=== PATIENT | female | born 1970 | race Caucasian/White ===

== ENCOUNTER 2019-04-08 12:05 | Inpatient (IN) ==
--- NOTE | 2019-04-08 12:59 | Emergency Department Note ---
[facility] [place] Disposition Clinical Impression: Colitis Disposition: Admitted as Observation Condition on Discharge: Good Medical Decision Making - Medical Records Medical records reviewed: Yes: I reviewed the patient's medical records. - Lito Inquiry Pt receiving controlled substance: No Lito was queried for this patient: No Vital Signs: 04/08/19 12:26 04/08/19 13:00 04/08/19 13:36 Temperature 98.5 F 98.5 F Temperature Source Oral Oral Pulse Rate Pulse Rate [Right Brachial] 96 H 96 H 94 H Respiratory Rate 20 20 18 Blood Pressure Blood Pressure [Right Arm] 120/73 120/73 120/73 Blood Pressure Mean [Right Arm] 88 88 88 Blood Pressure Source [Right Arm] Automatic Cuff Automatic Cuff Automatic Cuff Blood Pressure Position [Right Arm] Sitting Sitting Supine 02 Sat by Pulse Oximetry 98 98 100 Oxygen Delivery Method Room Air Room Air Room Air 04/08/19 14:00 04/08/19 14:30 04/08/19 15:00 Temperature Temperature Source Pulse Rate Pulse Rate [Right Brachial] 94 H 94 H 94 H Respiratory Rate 20 20 18 Blood Pressure Blood Pressure [Right Arm] 120/73 121/72 120/73 Blood Pressure Mean [Right Arm] 88 88 88 Blood Pressure Source [Right Arm] Automatic Cuff Automatic Cuff Automatic Cuff Blood Pressure Position [Right Arm] Supine Supine Supine 02 Sat by Pulse Oximetry 98 98 98 Oxygen Delivery Method Room Air Room Air Room Air 04/08/19 16:00 04/08/19 17:11 04/08/19 18:30 Temperature 98.6 F Temperature Source Oral Pulse Rate Pulse Rate [Right Brachial] 94 H 94 H 98 H Respiratory Rate 18 20 15 Blood Pressure Blood Pressure [Right Arm] 120/73 120/73 114/85 Blood Pressure Mean [Right Arm] 88 88 94 Blood Pressure Source [Right Arm] Automatic Cuff Automatic Cuff Blood Pressure Position [Right Arm] Supine Supine 02 Sat by Pulse Oximetry 98 98 98 Oxygen Delivery Method Room Air Room Air Room Air 04/08/19 18:32 Temperature 98.4 F Temperature Source Oral Pulse Rate 98 H Pulse Rate [Right Brachial] Respiratory Rate 15 Blood Pressure 114/65 Blood Pressure [Right Arm] Blood Pressure Mean [Right Arm] Blood Pressure Source [Right Arm] Blood Pressure Position [Right Arm] 02 Sat by Pulse Oximetry Oxygen Delivery Method Room Air - Lab Data Lab results reviewed: Yes: I reviewed the patient's lab results. Lab Results 04/08/19 13:15: WBC 18.1 H, RBC 4.39, Hgb 13.6, Hct 42.5, MCV 96.7, MCH 30.9, MCHC 31.9, RDW 13.6, Plt Count 363, MPV 8.0, Neut % (Auto) 79.9, Lymph % (Auto) 11.9, [place] % (Auto) 6.5, Eos % (Auto) 1.4, Baso % (Auto) 0.2, Neut # (Auto) 14.4 H, Lymph # (Auto) 2.1, [place] # (Auto) 1.2 H, Eos # (Auto) 0.3, Baso # (Auto) 0.0, Total Counted 100, Neutrophils % (Manual) 80 H, Band Neutrophils % 1.0, Lymphocytes % (Manual) 12, Monocytes % (Manual) 4, Eosinophils % (Manual) 3, Platelet Estimate Normal, RBC Morphology Normal 04/08/19 13:15: Sodium 136, Potassium 3.5, Chloride 99, Carbon Dioxide 27, Anion Gap 13.5, BUN 15, Creatinine 0.84, Estimated Creat Clear 102, Estimated GFR 73, Est GFR ( Amer) 88, Glucose 100, Calcium 8.7, Total Bilirubin 0.9, AST 18, ALT 31, Alkaline Phosphatase 57, Total Protein 7.2, Albumin 3.8, Globulin 3.4 H, Albumin/Globulin Ratio 1.1, Amylase 56, Lipase 193 04/08/19 13:15: ESR 16 04/08/19 13:15: C-Reactive Protein 0.3 04/08/19 13:35: Urine Color Yellow, Urine Appearance Clear, Urine pH 6.0, Ur Specific [place] 1.020, Urine Protein Negative, Urine Glucose (UA) Negative, Urine Ketones Negative, Urine Blood Trace-l, Urine Nitrate Negative, Urine Bilirubin Negative, Urine Urobilinogen 0.2, Ur Leukocyte Esterase Negative, Urine RBC 5-10, Urine WBC 3-5, Ur Squamous Epith Cells 10-20, Urine Bacteria Trace 04/08/19 15:20: Stool Occult Blood Positive A 04/08/19 15:20: Stl Aeromonas (PCR) Not detected, Stl C. cayetanensis PCR Not detected, Stool Rotavirus (PCR) Not detected, Stl Adenov F 40/41 PCR Not detected, Stool Astrovirus (PCR) Not detected, Stool Campylobacter PCR Not detected, Stl C.difficile Tox PCR Not detected, Stool Cryptosporidium PCR Not detected, Stl E.coli Shiga Tox PCR Not detected, Stool E coli O157 PCR Not detected, Stl Enterotoxigenic E PCR Not detected, Stool EPEC (PCR) Not detected, Stool EAEC (PCR) Not detected, Stl E. histolytica PCR Not detected, Stool Giardia Lamblia PCR Not detected, Stool Salmonella PCR Not detected, Stool Sapovirus (PCR) Not detected, Stl P. shigelloides PCR Not detected, Stl Shigell a/EIEC PCR Not detected, St Y.enterocolitica PCR Not detected, Stool Vibrio (PCR) Not detected, Stl Vibrio cholerae PCR Not detected, Stl Norovirus GI/GII PCR Not detected Result diagrams: 04/08/19 13:15 04/08/19 13:15 Orders (Tests/Meds): ED MEDICATIONS Generic Name Dose Route Start Last Admin Trade Name Freq PRN Reason Stop Dose Admin Acetaminophen 650 mg 04/08/19 17:46 Acetaminophen 325mg Tab PO 05/08/19 17:45 Q4HP PRN As Needed for Fever or Pain Folic Acid 1 mg 04/09/19 09:00 Folic Acid 1mg Tablet PO 05/09/19 08:59 DAILY [facility] Metronidazole 500 mg in 100 mls @ 100 mls/hr 04/09/19 01:00 Flagyl 500mg/100ml Ivpb IV 04/22/19 16:59 Q8H GOLDY Protocol Sodium Chloride 1,000 mls @ 100 mls/hr 04/08/19 17:46 04/08/19 19:40 Sod Chlor 0.9% 1000ml Bag IV 05/08/19 17:45 100 mls/hr .Q10H GOLDY Administration Levothyroxine Sodium 50 mcg 04/09/19 09:00 Synthroid 50mcg (0.05mg) Tablet PO 05/09/19 08:59 DAILY GOLDY Lisinopril 10 mg 04/09/19 09:00 Zestril 10mg Tablet PO 05/09/19 08:59 DAILY GOLDY Methotrexate mg 04/08/19 17:46 Methotrexate 2.5mg Tablet PO 05/08/19 17:45 WEEKLY GOLDY Morphine Sulfate 4 mg 04/08/19 17:46 Morphine 2mg/Ml Syringe IV 05/08/19 17:45 Q4HP PRN Severe Pain Non-Formulary Medication 20 mg 04/08/19 21:00 Dextroamphetamine/Amphetamine [Adderall 20 Mg Tablet] PO 05/08/19 20:59 BID GOLDY Non-Formulary Medication 150 mg 04/09/19 09:00 Venlafaxine Hcl [Effexor Xr] PO 05/09/19 08:59 DAILY [facility] Ondansetron HCl 4 mg 04/08/19 17:46 Zofran 4mg/2ml Vial IV 05/08/19 17:45 Q8HP PRN Nausea Discontinued Medications Generic Name Dose Route Start Last Admin Trade Name Freq PRN Reason Stop Dose Admin Diatrizoate Meglum/Diatrizoate Sod 30 ml 04/08/19 13:46 04/08/19 13:46 Gastrografin 66%-10% 30ml PO 04/08/19 13:47 30 ml ONCE ONE Administration Metronidazole 500 mg in 100 mls @ 100 mls/hr 04/08/19 17:00 04/08/19 17:42 Flagyl 500mg/100ml Ivpb IV 04/22/19 16:59 100 mls/hr Q8H GOLDY Administration Protocol Ioversol 75 ml 04/08/19 15:41 04/08/19 15:42 Rad-Optiray 350 100ml Vial IV 04/08/19 15:42 75 ml ONCE ONE Administration Protocol Sodium Chloride 10 ml 04/08/19 15:41 04/08/19 15:42 Rad-Saline Flush 10ml Syringe IV 04/08/19 15:42 10 ml ONCE ONE Administration ORDERS Category Date Time Status Complete Blood Count Auto Diff AMLAB Lab 04/09/19 06:00 Ordered [facility] [place] HPI - General Stated complaint: v/d, rectal bleeding, dehydrated Time Seen by Provider: 04/08/19 13:00 Mode of Arrival: Family Vehicle Source of Information: Patient Limitations: No Limitations Description of Symptoms (Recalled from Triage Doc. by RN): C/O" VIOLENT" VOMITING AND DIARRHEA WITH ABDOMINAL PAIN,WEAKNESS,DEHYDRATION AND BRIGHT RED BLODD FORM BOWELS. BLOOD ONLY BUT NO STOOLS. HX RECTAL BLEEDING PREVIOUSLY AND HAD TO BE ADMITTED FOR 5 DAYS HEENT Symptoms (Recalled from RN notes): No Resp Symptoms (Recalled from RN notes): No Skin Symptoms (Recalled from RN notes): No MS Symptoms (Recalled from RN notes): No Functional Status (Recalled from RN notes): N/A - History of Present Illness Provider Complaint: She complains of bright red rectal bleeding since yesterday evening. She has also vomited several times, but there has not been any blood in her vomitus. She describes the amount of blood as "kind of alot". She states that today she has had multiple bouts of rectal bleeding with out having a bowel movement. She had similar symptoms about 5 years ago. She states she was checked out by GI and a reason for the bleeding was never really identified. But the bleeding stopped and she has had no more symptoms until now. - Related Data Home Medications Medication Instructions Recorded Confirmed Dextroamphetamine/Amphetamine 40 mg PO DAILY 04/08/19 04/08/19 [Adderall 20 mg Tablet] Folic Acid [Folic Acid 1mg tablet] 1 tab PO DAILY 04/08/19 04/08/19 Leucovorin Calcium 5 mg PO DIRECTED 04/08/19 04/08/19 Levothyroxine Sodium 50 mcg PO DAILY 04/08/19 04/08/19 [Levothyroxine 50mcg (0.05mg) Tab] Lisinopril [Lisinopril 10mg Tab] 10 mg PO DAILY 04/08/19 04/08/19 Metoprolol Succinate 50 mg PO DAILY 04/08/19 04/08/19 Venlafaxine HCl [Effexor Xr] 150 mg PO DAILY 04/08/19 04/08/19 metHOTREXate sodium [metHOTREXate 8 tab PO WEEKLY 04/08/19 04/08/19 2.5mg Tablet] Allergies Allergy/AdvReac Type Severity Reaction Status Date / Time cephalexin [From KEFLEX] Allergy Mild Verified 04/08/19 12:34 levofloxacin [LEVOFLOXACIN] Allergy Unknown I-RASH Verified 04/08/19 12:34 clindamycin Allergy Verified 04/08/19 12:34 - Worker's Comp Is this a Worker's Comp case?: No [facility] History - Hepatitis A Screen Drug use history?: No High risk sexual behaviors?: No History of sexually transmitted infection?: No Currently employed?: No Childcare worker?: No Do you have indoor plumbing?: Yes Do you have electricity?: Yes Attestation statement:: This patient has been screened for Hepatitis A risk factors. I have reviewed the patient's past medical history: Yes Fractures: Yes (KNEE) - Social History Smoking Status: Current every day smoker Tobacco Type: cigarettes # Packs/Day (cigarettes): 1 Alcohol Intake: never Occupational Status: other ROS Obtained: Yes All systems reviewed & no additional complaints - Constitutional Constitutional: Denies chills, Denies fever(s) - ENT Ears, Nose, Mouth, and Throat: Reports dizziness, Denies otalgia, Denies sore throat - Gastrointestinal Gastrointestingal: Reports: as per HPI Physical Exam - General General appearance: alert, in no apparent distress - Head Head exam: atraumatic, normocephalic, normal inspection - Eye Eye exam: Present: normal appearance, PERRL, EOMI - ENT ENT exam: Present: normal exam, normal oropharynx, mucous membranes moist, TM's normal bilaterally, normal external ear exam - Neck Neck exam: Present: normal inspection, full ROM, trachea midline. Absent: meningismus, lymphadenopathy - Chest Chest inspection: Present: normal inspection, symmetric chest wall rise. Absent: tenderness - Respiratory Respiratory exam: Present: normal lung sounds bilaterally. Absent: respiratory distress - Cardiovascular Cardiovascular exam: Present: regular rate, normal rhythm. Absent: JVD - Abdominal Exam Abdominal exam: Present: soft, normal bowel sounds. Absent: distention, tenderness, guarding - Extremities Exam Extremities exam: Present: normal inspection, full ROM, normal capillary refill. Absent: calf tenderness - Back Exam Back exam: Present: normal inspection. Absent: tenderness - Neurological Exam Neurological exam: Present: alert, oriented X3 - Psychiatric Psychiatric exam: Present: normal affect, normal mood - Skin Skin exam: Present: warm, dry, intact, normal color - Lymphatic Lymphatic Findings: no adenopathy
[2019-04-08 13:30] LABS: Basophils % 0.2 % (0.1-2.0); Eosinophils # 0.3 K/mm3 (0.0-0.4); Eosinophils % 1.4 % (0.1-12.0); Hematocrit 42.5 % (37.0-47.0); Hemoglobin 13.6 g/dL (12.2-16.2); Lymphocytes # 2.1 K/mm3 (0.7-4.5); Lymphocytes % 11.9 % (10-50); Mean Corpuscular HGB Conc 31.9 g/dL (31.8-35.4); Mean Corpuscular Volume 96.7 fl (81-99); Monocytes # 1.2 K/mm3 (0.1-1.0); Monocytes % 6.5 % (1.7-9.3); Neutrophils # 14.4 K/mm3 (1.8-7.8); Neutrophils % 79.9 % (37.0-80.0); Platelet Count 363 K/mm3 (142-424); Red Blood Count 4.39 M/mm3 (4.20-5.40); Red Cell Distribution Width 13.6 % (11.5-17.5); White Blood Count 18.1 K/mm3 (4.8-10.8)
[2019-04-08 13:42] LABS: Albumin Level 3.8 gm/dL (3.4-5.0); Albumin/Globulin Ratio 1.1 (1.1-1.8); Anion Gap 13.5 mEq/L (5-15); Bilirubin,Total 0.9 mg/dL (0.2-1.0); Calcium 8.7 mg/dL (8.5-10.1); Globulin 3.4 gm/dl (1.3-3.2); Total Protein,Serum 7.2 gm/dL (6.4-8.2)
[2019-04-08 13:42] LABS: Microscopic, Urine URINE MICROSCOPIC (MICROSCOPIC)
[2019-04-08 13:44] LABS: Appearance,Urine CLEAR (Clear); Bilirubin,Urine Negative (Negative); Blood, Urine TRACE-L (Negative); Color,Urine YELLOW (Yellow); Glucose,Urine (UA) Negative (Negative); Ketones,Urine Negative (Negative); Leukocyte Esterase,Urine Negative (Negative); Protein,Urine Negative (Negative); Urobilinogen,Urine 0.2 EU/dl (0.2)
--- NOTE | 2019-04-08 13:51 | Emergency Department Note ---
ED Disposition Clinical Impression: Colitis Disposition: Admitted as Observation Condition on Discharge: Fair Referrals: Sydnie Godwin MD [Primary Care Provider] - - Critical Care Critical Care Time: No Attestation: On 04/08/19, the high probability of a clinically significant, sudden or life threatening deterioration of the following system(s) required my full and direct attention, intervention and personal management. The time I documented below is in addition to time spent performing reported procedures but includes the following listed in this critical care notation. Medical Decision Making - Lito Inquiry Pt receiving controlled substance: No Vital Signs: 04/08/19 12:26 04/08/19 13:00 04/08/19 13:36 Temperature 98.5 F 98.5 F Temperature Source Oral Oral Pulse Rate [Right Brachial] 96 H 96 H 94 H Respiratory Rate 20 20 18 Blood Pressure [Right Arm] 120/73 120/73 120/73 Blood Pressure Mean [Right Arm] 88 88 88 Blood Pressure Source [Right Arm] Automatic Cuff Automatic Cuff Automatic Cuff Blood Pressure Position [Right Arm] Sitting Sitting Supine 02 Sat by Pulse Oximetry 98 98 100 Oxygen Delivery Method Room Air Room Air Room Air 04/08/19 14:00 04/08/19 14:30 04/08/19 15:00 Temperature Temperature Source Pulse Rate [Right Brachial] 94 H 94 H 94 H Respiratory Rate 20 20 18 Blood Pressure [Right Arm] 120/73 121/72 120/73 Blood Pressure Mean [Right Arm] 88 88 88 Blood Pressure Source [Right Arm] Automatic Cuff Automatic Cuff Automatic Cuff Blood Pressure Position [Right Arm] Supine Supine Supine 02 Sat by Pulse Oximetry 98 98 98 Oxygen Delivery Method Room Air Room Air Room Air 04/08/19 16:00 Temperature Temperature Source Pulse Rate [Right Brachial] 94 H Respiratory Rate 18 Blood Pressure [Right Arm] 120/73 Blood Pressure Mean [Right Arm] 88 Blood Pressure Source [Right Arm] Automatic Cuff Blood Pressure Position [Right Arm] Supine 02 Sat by Pulse Oximetry 98 Oxygen Delivery Method Room Air - Lab Data Lab Results 04/08/19 13:15: WBC 18.1 H, RBC 4.39, Hgb 13.6, Hct 42.5, MCV 96.7, MCH 30.9, MCHC 31.9, RDW 13.6, Plt Count 363, MPV 8.0, Neut % (Auto) 79.9, Lymph % (Auto) 11.9, Toombs % (Auto) 6.5, Eos % (Auto) 1.4, Baso % (Auto) 0.2, Neut # (Auto) 14.4 H, Lymph # (Auto) 2.1, Toombs # (Auto) 1.2 H, Eos # (Auto) 0.3, Baso # (Auto) 0.0, Total Counted 100, Neutrophils % (Manual) 80 H, Band Neutrophils % 1.0, Lymphocytes % (Manual) 12, Monocytes % (Manual) 4, Eosinophils % (Manual) 3, Platelet Estimate Normal, RBC Morphology Normal 04/08/19 13:15: Sodium 136, Potassium 3.5, Chloride 99, Carbon Dioxide 27, Anion Gap 13.5, BUN 15, Creatinine 0.84, Estimated Creat Clear 102, Estimated GFR 73, Est GFR ( Amer) 88, Glucose 100, Calcium 8.7, Total Bilirubin 0.9, AST 18, ALT 31, Alkaline Phosphatase 57, Total Protein 7.2, Albumin 3.8, Globulin 3.4 H, Albumin/Globulin Ratio 1.1, Amylase 56, Lipase 193 04/08/19 13:35: Urine Color Yellow, Urine Appearance Clear, Urine pH 6.0, Ur Specific Colon 1.020, Urine Protein Negative, Urine Glucose (UA) Negative, Urine Ketones Negative, Urine Blood Trace-l, Urine Nitrate Negative, Urine Bilirubin Negative, Urine Urobilinogen 0.2, Ur Leukocyte Esterase Negative, Urine RBC 5-10, Urine WBC 3-5, Ur Squamous Epith Cells 10-20, Urine Bacteria Trace 04/08/19 15:20: Stool Occult Blood Positive A Result diagrams: 04/08/19 13:15 04/08/19 13:15 Orders (Tests/Meds): ED MEDICATIONS Discontinued Medications Generic Name Dose Route Start Last Admin Trade Name Freq PRN Reason Stop Dose Admin Diatrizoate Meglum/Diatrizoate Sod 30 ml 04/08/19 13:46 04/08/19 13:46 Gastrografin 66%-10% 30ml PO 04/08/19 13:47 30 ml ONCE ONE Administration Ioversol 75 ml 04/08/19 15:41 04/08/19 15:42 Rad-Optiray 350 100ml Vial IV 04/08/19 15:42 75 ml ONCE ONE Administration Protocol Sodium Chloride 10 ml 04/08/19 15:41 04/08/19 15:42 Rad-Saline Flush 10ml Syringe IV 04/08/19 15:42 10 ml ONCE ONE Administration ORDERS Category Date Time Status C-Reactive Protein Stat Lab 04/08/19 16:23 Ordered Diarrhea 6-11 Panel, Cdiff PCR Stat Lab 04/08/19 15:20 Received ESR [Erythrocyte Sedimentation Rate] Stat Lab 04/08/19 16:23 Ordered - CT Data CT Scan: Abdomen, Pelvis Time Received: 16:[address] Reviewed: Yes: I have viewed the radiologist's interpretation Findings Narrative: FINDINGS: The lung bases are clear. The liver, gallbladder, spleen, adrenal glands, pancreas, and kidneys have an unremarkable appearance. There is a small umbilical hernia containing fat. Unremarkable appendix. No evidence of small-bowel obstruction. There are air-fluid levels within the ascending and transverse colon. There is moderate thickening of the splenic flexure, descending colon, and sigmoid colon with mild stranding of the pericolic fat consistent with colitis. The the cecum shows a moderate amount of fluid with some inter mixing of contrast. There is a small amount of fluid in the pelvis. No acute bony anomalies are evident. Prior hysterectomy IMPRESSION: 1. There is colitis of the splenic flexure, descending colon, and sigmoid colon with stranding of the pericolic fat. This thickening is worse in the descending colon region. No obvious pneumatosis. This could be inflammatory or infectious. Ischemia is also consideration with this area of distribution. Superior mesenteric artery proximally has an unremarkable appearance. 2. Small amount of free fluid in the pelvis Dictated by: Jared Stevens MD 04/08/2019 15:59 Electronically signed by Jared Stevens MD in [place] 04/08/2019 15:59 - Physician Consults Physician Consulted: Mendy Godwin Time: 16:52 Reason -: Admission Comment/Response: Agrees to admit the patient to the hospital. We discussed the patient's clinical information, including history, exam, laboratory and radiology results and ED course. Per hospital procedure, I will write temporary bridge inpatient orders on the patient. Specific orders requested by the admitting physician: Flagyl Medical Decision Narrative: Prior EGD and colonoscopy: Surgeon/Tapper Balance Wheel Screw Hole(s) Date of procedure: 10/19/16 Surgeon: MD Narinder Palomo Diagnoses Pre-op diagnosis: Gastroesophageal reflux disease Colitis Hemorrhoids Post-op diagnosis Same as preoperative diagnoses, with the addition of the following: Small sliding hiatal hernia Mild gastritis/duodenitis Colon polyps Procedure Procedure Procedure: Esophagogastroduodenoscopy with biopsy Colonoscopy with polypectomy Indications: ALONSO ZHENG is a 46 year-old Female with a history of gastroesophageal reflux disease, recent hospitalization for colitis, and symptomatic hemorrhoid disease. Findings: Gastroesophageal junction at 40 cm Small inflammatory change at gastroesophageal junction Small sliding hiatal hernia Mild patchy inflammatory changes of the stomach and small bowel Fairly large hemorrhoidal tags/moderate cushions without active bleeding or thrombosis Bowel preparation fairly poor Fairly large pedunculated polyp at 40 cm Polyp at 30 cm Procedure Description: After informed consent was obtained, the patient was taken to the endoscopy suite. IV sedation ensued after she was transferred to the LEFT lateral decubitus position. The gastroscope was advanced. The gastroesophageal junction was at 40 cm. The stomach was entered. Retroflexion revealed a small sliding h iatal hernia noted on maximum insufflation. Mild patchy inflammatory changes of the stomach and duodenal bulb were noted. A biopsy of the duodenal bulb was obtained. The antrum was biopsied. A small focal area of inflammation at the gastroesophageal junction was also biopsied. The gastroscope was carefully removed. Digital rectal exam confirmed fairly large hemorrhoidal tags. No thrombosis or active bleeding was noted. The colonoscope was placed in position. The entire colon was evaluated. Bowel preparation was fairly poorwith large volume irrigation and suctioning used to somewhat improved visualization. A large pedunculated polyp at [address] by way of snare. The polyp at 30 [address] was excised by way of cold biopsy forceps. Moderate hemorrhoidal cushions were observed. No active bleeding was seen. No thrombosis was noted. The colonoscope was carefully removed and the patient was transferred to recovery. EBL (ml): 1 Anesthesia: IV sedation with 15 mg of Versed and 200 g of fentanyl Complications: No immediate Specimens: Duodenal bulb biopsy Antral biopsy Biopsy of gastroesophageal junction Fairly large pedunculated colon polyp at 40 cm Colon polyp at 30 cm Disposition Disposition: Stable to recovery from where she will be discharged home. She will follow-up in one week. Repeat colonoscopy is pending pathology, but will likely be between 1- 2 years secondary to fairly poor bowel preparation and size/nature of polyp at 40 cm. at 1239 <Electronically signed by BRENTON PALOMO MD> 10/19/16 1239 I: 10/19/16 AT: [address]: FINDINGS: Lower thorax: Heterogeneous groundglass opacities are present in the left lung base consistent with pulmonary infection/inflammation ABDOMEN: Liver: No masses or biliary dilatation. Gallbladder: Nondistended. No radio opaque stones. Pancreas: No masses or peripancreatic fluid collections. Spleen: Unremarkable. Adrenals: Unremarkable Kidneys/ureters: No masses. No renal calculi. No hydronephrosis. No perinephric fluid collections. No ureteral dilatation or obvious ureteral calculi. Stomach bowel: There is wall thickening of the descending and sigmoid colon with adjacent fat stranding consistent with colitis. Small umbilical hernia containing fat Appendix: No evidence of appendicitis. PELVIS: Reproductive: Prior hysterectomy Bladder: Nondistended. No obvious stones or masses. ABDOMEN & PELVIS: Peritoneum: Small amount of free air in the pelvis Lymph nodes: Small mesenteric lymph nodes Vasculature: No evidence of abdominal aortic aneurysm. No retroperitoneal hemorrhage evident. Bones: No acute fracture IMPRESSION: 1. Wall thickening of the descending and sigmoid colon with stranding of the pericolic fat consistent with colitis. Follow-up recommended to exclude an underlying infiltrative neoplasm 2. Patchy infiltrate left lower lobe <Electronically signed by Jared Stevens MD in [place]> 08/23/16 1848 HUMZA / MARISSA AT 0611 AT 1844 General Adult HPI - General Chief complaint: Abdominal Pain Stated complaint: v/d, rectal bleeding, dehydrated Time Seen by Provider: 04/08/19 13:48 Mode of Arrival: Family Vehicle Source of Information: Patient Limitations: No Limitations Description of Symptoms (Recalled from ER Triage Doc. by RN): C/O" VIOLENT" VOMITING AND DIARRHEA WITH ABDOMINAL PAIN,WEAKNESS,DEHYDRATION AND BRIGHT RED BLODD FORM BOWELS. BLOOD ONLY BUT NO STOOLS. HX RECTAL BLEEDING PREVIOUSLY AND HAD TO BE ADMITTED FOR 5 DAYS - History of Present Illness HPI narrative: Patient states she started getting sick yesterday. Had projectile vomiting and diarrhea. Today she has abdominal bloating and is passing bright red blood per rectum. Some upper abdominal pain. No fever. Had similar symptoms "for 5 years ago" and was admitted here to the hospital and had a work-up. Uncertain of diagnosis. - Related Data Home Medications Medication Instructions Recorded Confirmed Dextroamphetamine/Amphetamine 20 mg PO BID 04/08/19 04/08/19 [Adderall 20 mg Tablet] Folic Acid [Folic Acid 1mg tablet] 1 tab PO DAILY 04/08/19 04/08/19 Levothyroxine Sodium 50 mcg PO DAILY 04/08/19 04/08/19 [Levothyroxine 50mcg (0.05mg) Tab] Lisinopril [Lisinopril 10mg Tab] 10 mg PO DAILY 04/08/19 04/08/19 Venlafaxine HCl [Effexor Xr] 150 mg PO DAILY 04/08/19 04/08/19 metHOTREXate sodium [metHOTREXate 4 tab PO WEEKLY 04/08/19 04/08/19 2.5mg Tablet] Allergies Allergy/AdvReac Type Severity Reaction Status Date / Time cephalexin [From KEFLEX] Allergy Mild Verified 04/08/19 12:34 levofloxacin [LEVOFLOXACIN] Allergy Unknown I-RASH Verified 04/08/19 12:34 clindamycin Allergy Verified 04/08/19 12:34 [facility] History - Hepatitis A Screen Drug use history?: No High risk sexual behaviors?: No History of sexually transmitted infection?: No Currently employed?: No Childcare worker?: No Do you have indoor plumbing?: Yes Do you have electricity?: Yes Attestation statement:: This patient has been screened for Hepatitis A risk factors. I have reviewed the patient's past medical history: Yes Fractures: Yes (KNEE) - Social History Smoking Status: Current every day smoker Tobacco Type: cigarettes # Packs/Day (cigarettes): 1 Alcohol Intake: never Occupational Status: other ROS Obtained: Yes All systems reviewed & no additional complaints - Constitutional Constitutional: Denies fever(s) - Cardiovascular Cardiovascular: Denies chest pain - Respiratory Respiratory: No dyspnea - Gastrointestinal Gastrointestingal: Reports: abdominal pain, diarrhea, bright red blood in stools, nausea, vomiting Physical Exam - General General appearance: alert, in no apparent distress - Head Head exam: atraumatic, normocephalic - Eye Eye exam: Present: normal appearance, EOMI - ENT ENT exam: Present: mucous membranes moist - Neck Neck exam: Present: normal inspection, trachea midline - Chest Chest inspection: Present: normal inspection, symmetric chest wall rise - Respiratory Respiratory exam: Present: normal lung sounds bilaterally. Absent: respiratory distress - Cardiovascular Cardiovascular exam: Present: regular rate, normal rhythm, normal heart sounds - Abdominal Exam Abdominal exam: Present: soft, tenderness, normal bowel sounds. Absent: distention, guarding, rebound, rigidity Abdominal tenderness: Present: diffuse, mild - Extremities Exam Extremities exam: Present: normal inspection - Neurological Exam Neurological exam: Present: alert, oriented X3 - Psychiatric Psychiatric exam: Present: normal affect, normal mood - Skin Skin exam: Present: warm, dry
[2019-04-08 14:04] LABS: Eosinophils % 3 % (0-3); Lymphocytes % 12 % (10-50); Monocytes % 4 % (2-9); Neutrophils % 80 % (42-76); RBC Morphology Normal; Total Cells Counted 100
[2019-04-08 14:05] LABS: Bacteria,Urine Trace /lpf
--- NOTE | 2019-04-08 17:51 | History & Physical Report ---
*Admission Date: 04/08/19 <Cherelle Andrews 04/08/19 18:20> *Chief complaint: Nausea, vomiting, diarrhea, and rectal bleeding <Cherelle Andrews 04/08/19 18:22> *History of present illness: Ms. Wood is a 48-year-old female with a history of irritable bowel syndrome, psoriatic arthritis, and GERD who presented to [facility] with projectile vomiting and diarrhea. This started last night with the vomiting ending about 2:30 AM. She continued with bloody stools but did go to work today. She describes abdominal bloating and passing some bright red blood per rectum. She also has some upper abdominal pain. She states she has had no fever. At the time of this exam patient continues to have some abdominal discomfort. Her last bloody stool was about 20 minutes ago. She is hungry. She has taken some clear liquids without problems. <AndrewsCherelle 04/08/19 18:58> [facility] History Medical History: Reports:: Gastroesophageal Reflux Disease(GERD) <Andrews,Cherelle 04/08/19 18:22> *Have you ever received a pneumonia vaccine?: No <Cherelle Andrews 04/08/19 17:51> *Have you received a flu vaccine this season?: No <Cherelle Andrews 04/08/19 17:51> Other Medical History: Reports: Arthritis (psoriatic) <Cherelle Andrews 04/08/19 17:51> Other Surgeries: Yes: , Hysterectomy-Total <JulianaCherelle 04/08/19 17:51> Fractures: Yes (KNEE) <JulianaCherelle 04/08/19 17:51> Comment: right knee surgery x5 ; breast reduction; ganglion cyst removed 2007 <AndrewsCherelle 04/08/19 17:51> - *Social History Educational Level: Completed College <JulianaCherelle 04/08/19 18:58> Smoking Status: Current every day smoker <Cherelle Andrews 04/08/19 17:51> Tobacco Type: cigarettes <JulianaCherelle 04/08/19 17:51> # Packs/Day (cigarettes): 1 <Cherelle Andrews 04/08/19 17:51> Alcohol Intake: never <Cherelle Andrews 04/08/19 17:51> *Occupational Status:: other <Cherelle Andrews 04/08/19 17:51> Housing: house <Cherelle Andrews 04/08/19 18:58> Household Members: spouse <Cherelle Andrews 04/08/19 18:58> *Travel in the last 8 weeks: None <Cherelle Andrews 04/08/19 17:51> Family Hx:: Coronary Artery Disease, Diabetes, Hypertension <Cherelle Andrews 04/08/19 18:58> Review of Systems - Constitutional Denies chills, Denies fever(s) <Cherelle Andrews 04/08/19 18:58> - Eyes Denies change in vision <Cherelle Andrews 04/08/19 18:58> - ENT Denies ear pain, Denies nasal congestion, Denies sore throat <Cherelle Andrews 04/08/19 18:58> - *Cardiovascular Denies chest pain, Denies excessive sweating, Denies shortness of breath <Cherelle Andrews 04/08/19 18:58> - *Respiratory Denies chest congestion, Denies cough, Denies shortness of breath <Julianne garnerCherelle 04/08/19 18:58> - *Gastrointestinal Reports abdominal pain, Reports bloating, Reports change in bowel habits, Reports bright, red blood in stools, Reports nausea, Reports vomiting, Denies constipation, Denies vomiting blood <Cherelle Andrews 04/08/19 18:58> - *Genitourinary Denies difficulty urinating <Cherelle Andrews 04/08/19 18:58> - *Musculoskeletal Denies abnormal walking <Cherelle Andrews 04/08/19 18:58> - *Neurologic Denies abnormal walking, Denies confusion <Cherelle Andrews 04/08/19 18:58> Meds Home Medications Medication Instructions Recorded Confirmed Type Dextroamphetamine/Amphetamine 40 mg PO DAILY 04/08/19 04/08/19 History [Adderall 20 mg Tablet] Folic Acid [Folic Acid 1mg tablet] 1 tab PO DAILY 04/08/19 04/08/19 History Leucovorin Calcium 5 mg PO DIRECTED 04/08/19 04/08/19 History Levothyroxine Sodium 50 mcg PO DAILY 04/08/19 04/08/19 History [Levothyroxine 50mcg (0.05mg) Tab] Lisinopril [Lisinopril 10mg Tab] 10 mg PO DAILY 04/08/19 04/08/19 History Metoprolol Succinate 50 mg PO DAILY 04/08/19 04/08/19 History Venlafaxine HCl [Effexor Xr] 150 mg PO DAILY 04/08/19 04/08/19 History metHOTREXate sodium [metHOTREXate 8 tab PO WEEKLY 04/08/19 04/08/19 History 2.5mg Tablet] <Josias Brooke - 04/08/19 21:56> Allergies Allergy/AdvReac Type Severity Reaction Status Date / Time cephalexin [From KEFLEX] Allergy Mild Verified 04/08/19 12:34 levofloxacin [LEVOFLOXACIN] Allergy Unknown I-RASH Verified 04/08/19 12:34 clindamycin Allergy Verified 04/08/19 12:34 <Josias Brooke - 04/08/19 21:56> Exam Vital signs and Labs for Last 24 Hours: Temp Pulse Resp BP Pulse Ox 98.5 F 71 16 139/79 96 04/08/19 20:00 04/08/19 20:00 04/08/19 20:00 04/08/19 20:00 04/08/19 20:00 Laboratory Results - last 24 hr 04/08/19 13:15: WBC 18.1 H, RBC 4.39, Hgb 13.6, Hct 42.5, MCV 96.7, MCH 30.9, MCHC 31.9, RDW 13.6, Plt Count 363, MPV 8.0, Neut % (Auto) 79.9, Lymph % (Auto) 11.9, [place] % (Auto) 6.5, Eos % (Auto) 1.4, Baso % (Auto) 0.2, Neut # (Auto) 14.4 H, Lymph # (Auto) 2.1, [place] # (Auto) 1.2 H, Eos # (Auto) 0.3, Baso # (Auto) 0. 0, Total Counted 100, Neutrophils % (Manual) 80 H, Band Neutrophils % 1.0, Lymphocytes % (Manual) 12, Monocytes % (Manual) 4, Eosinophils % (Manual) 3, Platelet Estimate Normal, RBC Morphology Normal 04/08/19 13:15: Sodium 136, Potassium 3.5, Chloride 99, Carbon Dioxide 27, Anion Gap 13.5, BUN 15, Creatinine 0.84, Estimated Creat Clear 102, Estimated GFR 73, Est GFR ( Amer) 88, Glucose 100, Calcium 8.7, Total Bilirubin 0.9, AST 18, ALT 31, Alkaline Phosphatase 57, Total Protein 7.2, Albumin 3.8, Globulin 3.4 H, Albumin/Globulin Ratio 1.1, Amylase 56, Lipase 193 04/08/19 13:15: ESR 16 04/08/19 13:15: C-Reactive Protein 0.3 04/08/19 13:35: Urine Color Yellow, Urine Appearance Clear, Urine pH 6.0, Ur Specific [place] 1.020, Urine Protein Negative, Urine Glucose (UA) Negative, Urine Ketones Negative, Urine Blood Trace-l, Urine Nitrate Negative, Urine Bilirubin Negative, Urine Urobilinogen 0.2, Ur Leukocyte Esterase Negative, Urine RBC 5-10, Urine WBC 3-5, Ur Squamous Epith Cells 10-20, Urine Bacteria Trace 04/08/19 15:20: Stool Occult Blood Positive A 04/08/19 15:20: Stl Aeromonas (PCR) Not detected, Stl C. cayetanensis PCR Not detected, Stool Rotavirus (PCR) Not detected, Stl Adenov F 40/41 PCR Not det ected, Stool Astrovirus (PCR) Not detected, Stool Campylobacter PCR Not detected, Stl C.difficile Tox PCR Not detected, Stool Cryptosporidium PCR Not detected, Stl E.coli Shiga Tox PCR Not detected, Stool E coli O157 PCR Not detected, Stl Enterotoxigenic E PCR Not detected, Stool EPEC (PCR) Not detected, Stool EAEC (PCR) Not detected, Stl E. histolytica PCR Not detected, Stool Giardia Lamblia PCR Not detected, Stool Salmonella PCR Not detected, Stool Sapovirus (PCR) Not detected, Stl P. shigelloides PCR Not detected, Stl Shigella/EIEC PCR Not detected, St Y.enterocolitica PCR Not detected, Stool Vibrio (PCR) Not detected, Stl Vibrio cholerae PCR Not detected, Stl Norovirus GI/GII PCR Not detected <Josias Brooke - 04/08/19 21:56> Temp Pulse Resp BP Pulse Ox 98.5 F 94 H 20 120/73 98 04/08/19 13:00 04/08/19 17:11 04/08/19 17:11 04/08/19 17:11 04/08/19 17:11 Laboratory Results - last 24 hr 04/08/19 13:15: WBC 18.1 H, RBC 4.39, Hgb 13.6, Hct 42.5, MCV 96.7, MCH 30.9, MCHC 31.9, RDW 13.6, Plt Count 363, MPV 8.0, Neut % (Auto) 79.9, Lymph % (Auto) 11.9, [place] % (Auto) 6.5, Eos % (Auto) 1.4, Baso % (Auto) 0.2, Neut # (Auto) 14.4 H, Lymph # (Auto) 2.1, [place] # (Auto) 1.2 H, Eos # (Auto) 0.3, Baso # (Auto) 0.0, Total Counted 100, Neutrophils % (Manual) 80 H, Band Neutrophils % 1.0, Lymphocytes % (Manual) 12, Monocytes % (Manual) 4, Eosinophils % (Manual) 3, Platelet Estimate Normal, RBC Morphology Normal 04/08/19 13:15: Sodium 136, Potassium 3.5, Chloride 99, Carbon Dioxide 27, Anion Gap 13.5, BUN 15, Creatinine 0.84, Estimated Creat Clear 102, Estimated GFR 73, Est GFR ( Amer) 88, Glucose 100, Calcium 8.7, Total Bilirubin 0.9, AST 18, ALT 31, Alkaline Phosphatase 57, Total Protein 7.2, Albumin 3.8, Globulin 3.4 H, Albumin/Globulin Ratio 1.1, Amylase 56, Lipase 193 04/08/19 13:15: C-Reactive Protein 0.3 04/08/19 13:35: Urine Color Yellow, Urine Appearance Clear, Urine pH 6.0, Ur Specific [place] 1.020, Urine Protein Negative, Urine Glucose (UA) Negative, Urine Ketones Negative, Urine Blood Trace-l, Urine Nitrate Negative, Urine Bilirubin Negative, Urine Urobilinogen 0.2, Ur Leukocyte Esterase Negative, Urine RBC 5-10, Urine WBC 3-5, Ur Squamous Epith Cells 10-20, Urine Bacteria Trace 04/08/19 15:20: Stool Occult Blood Positive A 04/08/19 15:20: Stl Aeromonas (PCR) Not detected, Stl C. cayetanensis PCR Not detected, Stool Rotavirus (PCR) Not detected, Stl Adenov F 40/41 PCR Not detected, Stool Astrovirus (PCR) Not detected, Stool Campylobacter PCR Not detected, Stl C.difficile Tox PCR Not detected, Stool Cryptosporidium PCR Not detected, Stl E.coli Shiga Tox PCR Not detected, Stool E coli O157 PCR Not detected, Stl Enterotoxigenic E PCR Not detected, Stool EPEC (PCR) Not detected, Stool EAEC (PCR) Not detected, Stl E. histolytica PCR Not detected, Stool Giardia Lamblia PCR Not detected, Stool Salmonella PCR Not detected, Stool Sapovirus (PCR) Not detected, Stl P. shigelloides PCR Not detected, Stl Shigella/EIEC PCR Not detected, St Y.enterocolitica PCR Not detected, Stool Vibrio (PCR) Not detected, Stl Vibrio cholerae PCR Not detected, Stl Norovirus GI/GII PCR Not detected <Cherelle Andrews - 04/08/19 17:51> I & O for Last 24 hours: Intake & Output 04/06/19 04/07/19 04/08/19 04/09/19 11:59 11:59 11:59 11:59 Intake Total 580 / 580 Balance 580 / 580 Weight 177 lb 9 oz <Josias Brooke - 04/08/19 21:56> Intake & Output 04/06/19 04/07/19 04/08/19 04/09/19 11:59 11:59 11:59 11:59 Weight 172 lb 0.004 oz <Cheerlle Andrews - 04/08/19 17:51> Radiology Reports for the Last 24 Hours: 04/08/19 CT of abdomen IMPRESSION: 1. There is colitis of the splenic flexure, descending colon, and sigmoid colon with stranding of the pericolic fat. This thickening is worse in the descending colon region. No obvious pneumatosis. This could be inflammatory or infectious. Ischemia is also consideration with this area of distribution. Superior mesenteric artery proximally has an unremarkable appearance. 2. Small amount of free fluid in the pelvis <Cherelle Andrews - 04/08/19 17:51> - Constitutional no acute distress <[facility] 04/08/19 18:58> - *Routine HEENT Exam Head: Present: normocephalic, atraumatic <Andrews,[facility] 04/08/19 18:58> Eye: Present: PERRL. Absent: conjunctival icterus, scleral injection, conjunctivae pink [facility] 18:58> ENT: Present: mucous membranes moist, oropharynx clear [facility] 04/08/19 18:58> - *Routine Neck Exam Present: supple. Absent: carotid bruit, lymphadenopathy, thyromegaly [facility] 04/08/19 18:58> - *Routine Respiratory Exam Present: CTA bilaterally (Anteriorly and posteriorly) <[facility] 04/08/19 18:58> - *Routine Cardiovascular Exam Present: RRR <[facility] 04/08/19 18:58> - *Routine Abdominal Exam Present: soft, normoactive bowel sounds, tenderness (Hyperactive) <[facility] 04/08/19 18:58> Comments: Mildly tender throughout mid abdomen [facility] 04/08/19 18:58> - *Routine Extremities Exam Absent: edema, calf tenderness [facility] 04/08/19 18:58> - *Routine Neurological Exam Present: alert, oriented X3 <[facility] 04/08/19 18:58> Assessment and Plan (1) Colitis Current visit: Yes Status: Acute Category: Medical Code(s): K52.9 - Noninfective gastroenteritis and colitis, unspecified (2) Rectal bleeding Current visit: Yes Status: Acute Category: Medical Code(s): K62.5 - Hemorrhage of anus and rectum (3) Psoriatic arthritis Current visit: Yes Status: Acute Category: Medical Code(s): L40.50 - Arthropathic psoriasis, unspecified <Josias Brooke 04/08/19 21:56> (1) Rectal bleeding Current visit: Yes Status: Acute Category: Medical Code(s): K62.5 - Hemorrhage of anus and rectum (2) Psoriatic arthritis Current visit: Yes Status: Acute Category: Medical Code(s): L40.50 - Arthropathic psoriasis, unspecified (3) Colitis Current visit: Yes Status: Acute Category: Medical Code(s): K52.9 - Noninfective gastroenteritis and colitis, unspecified <Cherelle Andrews - 04/08/19 18:51> - Assessment and plan all Dx Assessment and Plan for all problems:: Concur with above assessment and plan. Colitis presumed infectious although PCR diarrhea panel is negative. Repeat labs in AM. <Josias Brooke - 04/08/19 21:56> Still studies have been negative. Stool for occult blood is positive. She has been started on Flagyl and IV fluids at 100 NR. GI rest with clear liquids. Monitor H&H <Cherelle Andrews - 04/08/19 18:58>
[2019-04-09 07:12] LABS: Basophils # 0.1 K/mm3 (0-0.2); Basophils % 0.5 % (0.1-2.0); Eosinophils # 0.3 K/mm3 (0.0-0.4); Eosinophils % 2.2 % (0.1-12.0); Lymphocytes # 2.4 K/mm3 (0.7-4.5); Lymphocytes % 21.1 % (10-50); Mean Corpuscular HGB Conc 29.7 g/dL (31.8-35.4); Mean Corpuscular Volume 99.3 fl (81-99); Monocytes # 0.8 K/mm3 (0.1-1.0); Monocytes % 7.5 % (1.7-9.3); Neutrophils # 7.8 K/mm3 (1.8-7.8); Neutrophils % 68.7 % (37.0-80.0); Platelet Count 304 K/mm3 (142-424); Red Blood Count 3.93 M/mm3 (4.20-5.40); Red Cell Distribution Width 14.1 % (11.5-17.5); White Blood Count 11.3 K/mm3 (4.8-10.8)
--- NOTE | 2019-04-09 07:29 | Pharmacy Consult Notes ---
[facility] Pharmacy VTE Monitoring - Patient Demographics Admission date: 04/08/19 Report Date: 04/09/19 Time: 07:29 Allergies/Adverse Reactions: Patient Allergies cephalexin [From KEFLEX] Allergy (Mild, Verified 04/08/19 12:34) levofloxacin [LEVOFLOXACIN] Allergy (Unknown, Verified 04/08/19 12:34) I-RASH clindamycin Allergy (Verified 04/08/19 12:34) Height: 1.68 m Weight: 78.613 kg Patient Problems: Current Active Problems Colitis (Acute) Rectal bleeding (Acute) Psoriatic arthritis (Acute) - VTE Risk Labs: VTE Related Lab Results Hgb 13.6 g/dL (12.2-16.2) 04/08/19 13:15 Hct 39.0 % (37.0-47.0) 04/09/19 06:52 Plt Count 304 K/mm3 (142-424) 04/09/19 06:52 BUN 15 mg/dL (7-18) 04/08/19 13:15 Creatinine 0.84 mg/dL (0.55-1.02) 04/08/19 13:15 Estimated Creat Clear 102 mL/min (50-200) 04/08/19 13:15 VTE Score: 4 VTE Risk Level: Low Risk - Prophylaxis VTE Prophylaxis Ordered?: Yes Types of VTE Prophylaxis: TEDS Knee High Location of Applied Device: Bilateral Lower Extremeties - VTE Diagnosis Confirmed Treatment or plan recommended: Continue Current Treatment
[2019-04-09 07:34] LABS: Hemoglobin 11.6 g/dL (12.2-16.2)
--- NOTE | 2019-04-09 08:46 | Progress Note ---
<Cherelle Andrews - Last Filed: 04/09/19 08:43> Internal Medicine - PN: Subj *Date: 04/09/19 *Time: 08:43 Interval history: Patient states she has had 2 liquid stools during the night. They were not pure blood but had blood in them. She has had no further abdominal pain. She is hungry. She tolerated clear liquids without any problems. She did sleep some during the night. Exam Vital signs and Labs for Last 24 Hours: Temp Pulse Resp BP Pulse Ox 98.5 F 75 15 110/62 96 04/09/19 04:00 04/09/19 04:00 04/09/19 04:00 04/09/19 04:00 04/09/19 04:00 Laboratory Results - last 24 hr 04/08/19 13:15: WBC 18.1 H, RBC 4.39, Hgb 13.6, Hct 42.5, MCV 96.7, MCH 30.9, MCHC 31.9, RDW 13.6, Plt Count 363, MPV 8.0, Neut % (Auto) 79.9, Lymph % (Auto) 11.9, [place] % (Auto) 6.5, Eos % (Auto) 1.4, Baso % (Auto) 0.2, Neut # (Auto) 14.4 H, Lymph # (Auto) 2.1, [place] # (Auto) 1.2 H, Eos # (Auto) 0.3, Baso # (Auto) 0.0, Total Counted 100, Neutrophils % (Manual) 80 H, Band Neutrophils % 1.0, Lymphocytes % (Manual) 12, Monocytes % (Manual) 4, Eosinophils % (Manual) 3, Platelet Estimate Normal, RBC Morphology Normal 04/08/19 13:15: Sodium 136, Potassium 3.5, Chloride 99, Carbon Dioxide 27, Anion Gap 13.5, BUN 15, Creatinine 0.84, Estimated Creat Clear 102, Estimated GFR 73, Est GFR ( Amer) 88, Glucose 100, Calcium 8.7, Total Bilirubin 0.9, AST 18, ALT 31, Alkaline Phosphatase 57, Total Protein 7.2, Albumin 3.8, Globulin 3.4 H, Albumin/Globulin Ratio 1.1, Amylase 56, Lipase 193 04/08/19 13:15: ESR 16 04/08/19 13:15: C-Reactive Protein 0.3 04/08/19 13:35: Urine Color Yellow, Urine Appearance Clear, Urine pH 6.0, Ur Specific [place] 1.020, Urine Protein Negative, Urine Glucose (UA) Negative, Urine Ketones Negative, Urine Blood Trace-l, Urine Nitrate Negative, Urine Bilirubin Negative, Urine Urobilinogen 0.2, Ur Leukocyte Esterase Negative, Urine RBC 5-10, Urine WBC 3-5, Ur Squamous Epith Cells 10-20, Urine Bacteria Trace 04/08/19 15:20: Stool Occult Blood Positive A 04/08/19 15:20: Stl Aeromonas (PCR) Not detected, Stl C. cayetanensis PCR Not detected, Stool Rotavirus (PCR) Not detected, Stl Adenov F 40/41 PCR Not detected, Stool Astrovirus (PCR) Not detected, Stool Campylobacter PCR Not detected, Stl C.difficile Tox PCR Not detected, Stool Cryptosporidium PCR Not detected, Stl E.coli Shiga Tox PCR Not detected, Stool E coli O157 PCR Not det ected, Stl Enterotoxigenic E PCR Not detected, Stool EPEC (PCR) Not detected, Stool EAEC (PCR) Not detected, Stl E. histolytica PCR Not detected, Stool Giardia Lamblia PCR Not detected, Stool Salmonella PCR Not detected, Stool Sapovirus (PCR) Not detected, Stl P. shigelloides PCR Not detected, Stl Shigella/EIEC PCR Not detected, St Y.enterocolitica PCR Not detected, Stool Vibrio (PCR) Not detected, Stl Vibrio cholerae PCR Not detected, Stl Norovirus GI/GII PCR Not detected 04/09/19 06:52: WBC 11.3 H D, RBC 3.93 L, Hgb 11.6 L D, Hct 39.0, MCV 99.3 H, MCH 29.5, MCHC 29.7 L, RDW 14.1, Plt Count 304, MPV 8.0, Neut % (Auto) 68.7, Lymph % (Auto) 21.1, [place] % (Auto) 7.5, Eos % (Auto) 2.2, Baso % (Auto) 0.5, Neut # (Auto) 7.8, Lymph # (Auto) 2.4, [place] # (Auto) 0.8, Eos # (Auto) 0.3, Baso # (Auto) 0.1 I & O for Last 24 hours: Intake & Output 04/06/19 04/07/19 04/08/19 04/09/19 11:59 11:59 11:59 11:59 Intake Total 580 / 580 Output Total 400 / 400 Balance 180 / 180 Weight 173 lb 5 oz Radiology Reports for the Last 24 Hours: 04/08/2019 CT of abdomen and pelvis IMPRESSION: 1. There is colitis of the splenic flexure, descending colon, and sigmoid colon with stranding of the pericolic fat. This thickening is worse in the descending colon region. No obvious pneumatosis. This could be inflammatory or infectious. Ischemia is also consideration with this area of distribution. Superior mesenteric artery proximally has an unremarkable appearance. 2. Small amount of free fluid in the pelvis - Constitutional no acute distress Comments: Appears comfortable. She is hungry. - *Routine Respiratory Exam Present: CTA bilaterally (Anteriorly and posteriorly) - *Routine Cardiovascular Exam Present: RRR - *Routine Abdominal Exam Present: soft, normoactive bowel sounds, distended (Abdomen is less distended this morning). Absent: tenderness - *Routine Extremities Exam Absent: edema, calf tenderness - *Routine Neurological Exam Present: alert, oriented X3 Assessment and Plan (1) Colitis Current visit: Yes Status: Acute Category: Medical Code(s): K52.9 - Noninfective gastroenteritis and colitis, unspecified (2) Rectal bleeding Current visit: Yes Status: Acute Category: Medical Code(s): K62.5 - Hemorrhage of anus and rectum (3) Psoriatic arthritis Current visit: Yes Status: Acute Category: Medical Code(s): L40.50 - Arthropathic psoriasis, unspecified - Assessment and plan all Dx Assessment and Plan for all problems:: White blood cell count has improved. Diet has been advanced to full liquids. Will saline lock IV. <Carissa Hernandez - Last Filed: 04/09/19 09:21> Internal Medicine - PN: Subj *Date: 04/09/19 *Time: :19 Exam Vital signs and Labs for Last 24 Hours: Temp Pulse Resp BP Pulse Ox 98.3 F 78 17 140/81 95 04/09/19 08:00 04/09/19 08:00 04/09/19 08:00 04/09/19 08:00 04/09/19 08:00 Laboratory Results - last 24 hr 04/08/19 13:15: WBC 18.1 H, RBC 4.39, Hgb 13.6, Hct 42.5, MCV 96.7, MCH 30.9, MCHC 31.9, RDW 13.6, Plt Count 363, MPV 8.0, Neut % (Auto) 79.9, Lymph % (Auto) 11.9, [place] % (Auto) 6.5, Eos % (Auto) 1.4, Baso % (Auto) 0.2, Neut # (Auto) 14.4 H, Lymph # (Auto) 2.1, [place] # (Auto) 1.2 H, Eos # (Auto) 0.3, Baso # (Auto) 0.0, Total Counted 100, Neutrophils % (Manual) 80 H, Band Neutrophils % 1.0, Lymphocytes % (Manual) 12, Monocytes % (Manual) 4, Eosinophils % (Manual) 3, Platelet Estimate Normal, RBC Morphology Normal 04/08/19 13:15: Sodium 136, Potassium 3.5, Chloride 99, Carbon Dioxide 27, Anion Gap 13.5, BUN 15, Creatinine 0.84, Estimated Creat Clear 102, Estimated GFR 73, Est GFR ( Amer) 88, Glucose 100, Calcium 8.7, Total Bilirubin 0.9, AST 18, ALT 31, Alkaline Phosphatase 57, Total Protein 7.2, Albumin 3.8, Globulin 3.4 H, Albumin/Globulin Ratio 1.1, Amylase 56, Lipase 193 04/08/19 13:15: ESR 16 04/08/19 13:15: C-Reactive Protein 0.3 04/08/19 13:35: Urine Color Yellow, Urine Appearance Clear, Urine pH 6.0, Ur Specific [place] 1.020, Urine Protein Negative, Urine Glucose (UA) Negative, Urine Ketones Negative, Urine Blood Trace-l, Urine Nitrate Negative, Urine Bilirubin Negative, Urine Urobilinogen 0.2, Ur Leukocyte Esterase Negative, Urine RBC 5-10, Urine WBC 3-5, Ur Squamous Epith Cells 10-20, Urine Bacteria Trace 04/08/19 15:20: Stool Occult Blood Positive A 04/08/19 15:20: Stl Aeromonas (PCR) Not detected, Stl C. cayetanensis PCR Not detected, Stool Rotavirus (PCR) Not detected, Stl Adenov F 40/41 PCR Not detected, Stool Astrovirus (PCR) Not detected, Stool Campylobacter PCR Not detected, Stl C.difficile Tox PCR Not detected, Stool Cryptosporidium PCR Not detected, Stl E.coli Shiga Tox PCR Not detected, Stool E coli O157 PCR Not detected, Stl Enterotoxigenic E PCR Not detected, Stool EPEC (PCR) Not detected, Stool EAEC (PCR) Not detected, Stl E. histolytica PCR Not detected, Stool Giardia Lamblia PCR Not detected, Stool Salmonella PCR Not detected, Stool Sapovirus (PCR) Not detected, Stl P. shigelloides PCR Not detected, Stl Shigella/EIEC PCR Not detected, St Y.enterocolitica PCR Not detected, Stool Vibrio (PCR) Not detected, Stl Vibrio cholerae PCR Not detected, Stl Norovirus GI/GII PCR Not detected 04/09/19 06:52: WBC 11.3 H D, RBC 3.93 L, Hgb 11.6 L D, Hct 39.0, MCV 99.3 H, MCH 29.5, MCHC 29.7 L, RDW 14.1, Plt Count 304, MPV 8.0, Neut % (Auto) 68.7, Lymph % (Auto) 21.1, [place] % (Auto) 7.5, Eos % (Auto) 2.2, Baso % (Auto) 0.5, Neut # (Auto) 7.8, Lymph # (Auto) 2.4, [place] # (Auto) 0.8, Eos # (Auto) 0.3, Baso # (Auto) 0.1 I & O for Last 24 hours: Intake & Output 04/06/19 04/07/19 04/08/19 04/09/19 11:59 11:59 11:59 11:59 Intake Total 940 / 940 Output Total 800 / 800 Balance 140 / 140 Weight 173 lb 5 oz Assessment and Plan (1) Colitis Current visit: Yes Status: Acute Category: Medical Code(s): K52.9 - Noninfective gastroenteritis and colitis, unspecified (2) Rectal bleeding Current visit: Yes Status: Acute Category: Medical Code(s): K62.5 - Hemorrhage of anus and rectum (3) Psoriatic arthritis Current visit: Yes Status: Acute Category: Medical Code(s): L40.50 - Arthropathic psoriasis, unspecified - Assessment and plan all Dx Assessment and Plan for all problems:: advance diet and add levaquin. Possible dc today.
--- NOTE | 2019-04-10 12:45 | Discharge Summary ---
General - General Admission date:: 04/08/19 Discharge date: 04/09/19 HPI HPI: Ms. Wood is a 48-year-old female with a history of irritable bowel syndrome, psoriatic arthritis, and GERD who presented to [facility] with projectile vomiting and diarrhea. This started last night with the vomiting ending about 2:30 AM. She continued with bloody stools but did go to work today. She describes abdominal bloating and passing some bright red blood per rectum. She also has some upper abdominal pain. She states she has had no fever. Hospital Course Hospital Course: The patient was able to take some clear liquids without problems. She had a diarrhea panel which was negative but her stool was positive for blood. She had a CT which showed colitis of the splenic flexure, descending colon, and sigmoid colon. Radiology felt this could be inflammatory versus infectious. The patient was started on Flagyl and IV fluids and her H&H was monitored. Levaquin was also added. She did continue with liquid stools, but the blood resolved. Her abdominal pain resolved and she was able to rest. Her white blood cell count improved and her diet was advanced. She tolerated this well and was stable to be discharged home on continued antibiotics. Objective Vital signs: Temp Pulse Resp BP Pulse Ox 98.3 F 78 17 140/81 95 04/09/19 08:00 04/09/19 08:00 04/09/19 08:00 04/09/19 08:00 04/09/19 08:00 Narrative: - Constitutional no acute distress - *Routine HEENT Exam Head: Present: normocephalic, atraumatic Eye: Present: PERRL. Absent: conjunctival icterus, scleral injection, conjunctivae pink ENT: Present: mucous membranes moist, oropharynx clear - *Routine Neck Exam Present: supple. Absent: carotid bruit, lymphadenopathy, thyromegaly - *Routine Respiratory Exam Present: CTA bilaterally (Anteriorly and posteriorly) - *Routine Cardiovascular Exam Present: RRR - *Routine Abdominal Exam Present: soft, normoactive bowel sounds, tenderness (Hyperactive) Comments: Mildly tender throughout mid abdomen - *Routine Extremities Exam Absent: edema, calf tenderness - *Routine Neurological Exam Present: alert, oriented X3 DS: Diagnosis - Discharge Diagnosis (1) Colitis Status: Acute (2) Rectal bleeding Status: Acute (3) Psoriatic arthritis Status: Acute Discharge Plan - Patient Discharge Instructions ACTIVITY: Continue current activity DIET: continue same diet Patient Instructions: DI for Acute Abdomen, DI for Colitis - Follow up Plan Follow up with: Carissa Hernandez MD [Staff Physician] - 04/16/19 1:00 pm Disposition: Home, Self-[facility] Medications: Home Medications Medication Instructions Recorded Confirmed Type Dextroamphetamine/Amphetamine 40 mg PO DAILY 04/08/19 04/08/19 History [Adderall 20 mg Tablet] Folic Acid [Folic Acid 1mg tablet] 1 mg PO DAILY 04/08/19 04/09/19 History Leucovorin Calcium 5 mg PO DIRECTED 04/08/19 04/08/19 History Levothyroxine Sodium 50 mcg PO DAILY 04/08/19 04/08/19 History [Levothyroxine 50mcg (0.05mg) Tab] Lisinopril [Lisinopril 10mg Tab] 10 mg PO DAILY 04/08/19 04/08/19 History Metoprolol Succinate 50 mg PO DAILY 04/08/19 04/08/19 History Venlafaxine HCl [Effexor Xr] 150 mg PO DAILY 04/08/19 04/08/19 History metHOTREXate sodium [metHOTREXate 4 tab PO WEEKLY 04/08/19 04/09/19 History 2.5mg Tablet] Dextroamphetamine/Amphetamine 10 mg PO 1200 04/09/19 04/09/19 History [Adderall 10 mg Tablet] Ondansetron HCl [Zofran 4mg Tab] 4 mg PO TID PRN 7 Days #21 tab 04/09/19 Rx levoFLOXacin [Levaquin 750mg 750 mg PO 1100 6 Days #6 tab 04/09/19 Rx tablet] metroNIDAZOLE [metroNIDAZOLE 500mg 500 mg PO TID 7 Days #21 tab 04/09/19 Rx Tablet] Prescriptions/Medication Reconciliation: New levoFLOXacin [Levaquin 750mg tablet] 750 mg PO 1100 6 Days #6 tab metroNIDAZOLE [metroNIDAZOLE 500mg Tablet] 500 mg PO TID 7 Days #21 tab Ondansetron HCl [Zofran 4mg Tab] 4 mg PO TID PRN 7 Days #21 tab PRN Reason: Nausea Continued Levothyroxine Sodium [Levothyroxine 50mcg (0.05mg) Tab] 50 mcg PO DAILY Lisinopril [Lisinopril 10mg Tab] 10 mg PO DAILY Folic Acid [Folic Acid 1mg tablet] 1 mg PO DAILY Venlafaxine HCl [Effexor Xr] 150 mg PO DAILY Dextroamphetamine/Amphetamine [Adderall 20 mg Tablet] 40 mg PO DAILY metHOTREXate sodium [metHOTREXate 2.5mg Tablet] 4 tab PO WEEKLY Leucovorin Calcium 5 mg PO DIRECTED Metoprolol Succinate 50 mg PO DAILY Dextroamphetamine/Amphetamine [Adderall 10 mg Tablet] 10 mg PO 1200 - Problem Reconciliation Problems Reviewed?: Yes
== END 2019-04-09 17:00 | disposition home or self-care (01) | DRG 392 ==
LOC: ER 12:05 → UTC 12:05 → 2ND 17:25
PROVIDERS: ADMIT Family Medicine; ATTEND Emergency Medicine
CPT/HCPCS: 36415; 74177; 80053; 81001; 82150; 82272; 83690; 85007; 85025; 85651; 86140; 87506; 96365; 99285; G0328; J2405; Q9967

== ENCOUNTER 2020-03-03 13:14 | Emergency (ER) | payer BC, SELFPAY ==
--- NOTE | 2020-03-03 13:35 | XR_ITS ---
PROCEDURE: XR FOOT RT MIN 3V CLINICAL INDICATION: dropped can on foot 2 days ago Medic pain COMPARISON: CR FTL3 FOOT-LT-3 VIEWS from 07/23/2012 CR FTR3 FOOT-RT-3 VIEWS from 07/23/2012 CR FTR3 FOOT-RT-3 VIEWS from 09/25/2016 CR FTL3 FOOT-LT-3 VIEWS from 09/25/2016 FINDINGS: No fracture or dislocation. No lytic or blastic change. There is normal mineralization. The joint spaces are well-preserved. No significant degenerative/arthritic changes. No erosive changes evident. Other findings:None. IMPRESSION: No acute findings. Dictated by: Jared Stevens MD 03/03/2020 14:18 Jared Stevens MD in [place] 03/03/2020 14:18
[2020-03-03 13:45] VITALS: BP 133/84; PULSE 77; RESP 14; TEMP 37.1; O2SAT 97; BMI 26.9
--- NOTE | 2020-03-03 14:31 | HMH.EDUTC ---
[facility] [place] Clinical Impression: Crushing injury of right foot Qualifiers: Encounter type: initial encounter Qualified Code(s): S97.81XA - Crushing injury of right foot, initial encounter Disposition: Home, Self-Care Condition on Discharge: Good Instructions: How to Use Crutches, DI for Foot Pain, DI for Crush Injury Additional Instructions: Rest the extremity, apply ice for 15 minutes as tolerated three or four times per day, Elevate the extremity as tolerated while you are resting. Follow up with Dr. Guo if you continue to have pain and symptoms. I put in a referral but you need to call her office and schedule an appointment. Follow up with your regular doctor. GO TO THE ER FOR ANY WORSENING SYMPTOMS Referrals: Sydnie Gowdin MD [Primary Care Provider] - Jania Guo DPM [Staff Physician] - Time of Disposition: 14:34 Medical Decision Making - Medical Records Medical records reviewed: No: I reviewed the patient's medical records. - Lito Inquiry Pt receiving controlled substance: No Vital Signs: 03/03/20 13:45 03/03/20 14:50 Temperature 98.7 F 98.7 F Temperature Source Oral Pulse Rate 77 Pulse Rate [Right Brachial] 77 Respiratory Rate 14 14 Blood Pressure 133/84 Blood Pressure [Right Arm] 133/84 Blood Pressure Mean [Right Arm] 100 Blood Pressure Source [Right Arm] Automatic Cuff Blood Pressure Position [Right Arm] Sitting 02 Sat by Pulse Oximetry 97 Oxygen Delivery Method Room Air Orders (Tests/Meds): ED MEDICATIONS Discontinued Medications Generic Name Dose Route Start Last Admin Trade Name Len PRN Reason Stop Dose Admin Ibuprofen 800 mg 03/03/20 13:49 03/03/20 13:52 Motrin 400mg Tablet PO 03/03/20 13:50 800 mg ONCE ONE Administration [facility] [place] - General Stated complaint: [id number] right foot pain,home accident Time Seen by Provider: 03/03/20 13:50 Mode of Arrival: Ambulatory Source of Information: Patient Limitations: No Limitations Description of Symptoms (Recalled from Triage Doc. by RN): PATIENT C/O RIGHT FOOT PAIN AFTER SHE DROPPED A LARGE CAN ON HER FOOT 2 DAYS AGO HEENT Symptoms (Recalled from RN notes): No Resp Symptoms (Recalled from RN notes): No Skin Symptoms (Recalled from RN notes): No MS Symptoms (Recalled from RN notes): Yes Functional Status (Recalled from RN notes): WNL - History of Present Illness Provider Complaint: She dropped a large can of enchilada sauce from her cabinet down onto to the top of her right foot. This occured 2 days ago. She states that since then she has continued to have right foot pain along the top of her foot at the base of her 2nd and 3rd toes. - Related Data Home Medications Medication Instructions Recorded Confirmed Dextroamphetamine/Amphetamine 40 mg PO DAILY 04/08/19 04/08/19 [Adderall 20 mg Tablet] Folic Acid [Folic Acid 1mg tablet] 1 mg PO DAILY 04/08/19 04/09/19 Leucovorin Calcium 5 mg PO DIRECTED 04/08/19 04/08/19 Levothyroxine Sodium 50 mcg PO DAILY 04/08/19 04/08/19 [Levothyroxine 50mcg (0.05mg) Tab] Metoprolol Succinate 50 mg PO DAILY 04/08/19 04/08/19 Venlafaxine HCl [Effexor XR 150mg] 150 mg PO DAILY 04/08/19 04/08/19 lisinopriL [Lisinopril 10mg Tab] 10 mg PO DAILY 04/08/19 04/08/19 metHOTREXate sodium [metHOTREXate 4 tab PO WEEKLY 04/08/19 04/09/19 2.5mg Tablet] Dextroamphetamine/Amphetamine 10 mg PO 1200 04/09/19 04/09/19 [Adderall 10 mg Tablet] Previous Rx's Medication Instructions Recorded levoFLOXacin [Levaquin 750mg 750 mg PO 1100 6 Days #6 tab 04/09/19 tablet] metroNIDAZOLE [metroNIDAZOLE 500mg 500 mg PO TID 7 Days #21 tab 04/09/19 Tablet] ondansetron HCL [Zofran 4mg Tab] 4 mg PO TID PRN 7 Days #21 tab 04/09/19 Albuterol Sulfate [Albuterol HFA 1 puff IH Q4HP PRN #1 inh 08/30/19 Inhaler] Azithromycin [Zithromax 250mg 250 mg PO DIRECTED #6 tab 08/30/19 tab] predniSONE [Prednisone 20mg 20 mg PO BID #10 tab 08/30
[2020-03-03 14:50] VITALS: BP 133/84; PULSE 77; RESP 14; TEMP 37.1; O2SAT 97
== END 2020-03-03 14:53 | disposition home or self-care (01) ==
PROVIDERS: Emergency Provider Nurse Practitioner Family; PCP Family Medicine
DX: S97.81XA Crushing injury of right foot, initial encounter (principal); W22.8XXA Striking against or struck by other objects, initial encounter; Y92.019 Unspecified place in single-family (private) house as the place of occurrence of the external cause; K21.9 Gastro-esophageal reflux disease without esophagitis; I10 Essential (primary) hypertension; L40.50 Arthropathic psoriasis, unspecified; F17.210 Nicotine dependence, cigarettes, uncomplicated; Z90.710 Acquired absence of both cervix and uterus; Z88.1 Allergy status to other antibiotic agents; Z79.899 Other long term (current) drug therapy
CPT/HCPCS: 73630; 99201

== ENCOUNTER → 2021-01-07 13:12 | Outpatient (CLI) | payer BC, SELFPAY ==
--- NOTE | 2021-01-07 13:16 | XR_ITS ---
PROCEDURE: XR CHEST 2V CLINICAL HISTORY: SIMPLE CHRONIC BRONCHITIS A COMPARISON: No exams were available for comparison FINDINGS: The cardiomediastinal silhouette and pulmonary vascularity are within normal limits. The lungs are clear without infiltrates, suspicious nodules, or pleural effusions. Degenerative changes thoracic IMPRESSION: No acute findings. Dictated by: Jared Stevens MD 01/07/2021 13:39 Jared Stevens MD in [place] 01/07/2021 13:39
--- NOTE | 2021-01-07 13:43 | ECG_ITS ---
APPROVED REPORT Exam: Resting ECG HR:91 bpm ECG Measurements Heart Rate 91 AXES MS 154 P 69 QRSd 82 QRS 73 QT 356 T 70 QTc 437 Conclusion Normal sinus rhythm Normal ECG Electronically signed by : Silas Lamb, 01/07/2021 15:57:16
== END ==
PROVIDERS: PCP Family Medicine; Visit Provider Family Medicine
DX: J41.0 Simple chronic bronchitis (principal)
CPT/HCPCS: 71046; 93005

== ENCOUNTER → 2021-05-16 16:05 | Outpatient (CLI) | payer BC, SELFPAY ==
--- NOTE | 2021-05-16 16:10 | XR_ITS ---
PROCEDURE: XR HIP RT 2-3V W/PELVIS CLINICAL INDICATION: Arthropathic psoriasis, unspecified COMPARISON: No exams were available for comparison FINDINGS: No fracture or dislocation is evident. No significant degenerative change. No lytic or blastic change. Unremarkable soft tissues. The SI joints have an unremarkable appearance. IMPRESSION: Negative right hip Dictated by: Jared Stevens MD 05/16/2021 17:08 Jared Stevens MD in [place] 05/16/2021 17:08
--- NOTE | 2021-05-16 16:10 | XR_ITS ---
PROCEDURE: XR FOOT RT MIN 3V CLINICAL INDICATION: Arthropathic psoriasis, unspecified COMPARISON: CR FTL3 FOOT-LT-3 VIEWS from 07/23/2012 CR FTR3 FOOT-RT-3 VIEWS from 09/25/2016 CR FTL3 FOOT-LT-3 VIEWS from 09/25/2016 CR XR FOOT RT MIN 3V from 03/03/2020 FINDINGS: No fracture or dislocation. No lytic or blastic change. There is normal mineralization. The joint spaces are well-preserved. No significant degenerative/arthritic changes. No erosive changes evident. Other findings:Small calcaneal spur not significantly changed IMPRESSION: Negative right foot Dictated by: Jared Stevens MD 05/16/2021 17:06 Jared Stevens MD in [place] 05/16/2021 17:06
--- NOTE | 2021-05-16 16:10 | XR_ITS ---
PROCEDURE: XR LUMBAR SPINE MIN 4V CLINICAL INDICATION: Arthropathic psoriasis, unspecified COMPARISON: No exams were available for comparison FINDINGS: There is minimal lumbar curvature convex left. Small anterior osteophytes are present involving the lumbar vertebra. There is mild degenerative disc disease at L3-L4. No fracture or dislocation. No lytic or blastic change. Mild facet hypertrophy at L5-S1. Other findings:None. IMPRESSION: Mild degenerative changes. No acute finding. Dictated by: Jared Stevens MD 05/16/2021 17:05 Jared Stevens MD in [place] 05/16/2021 17:05
--- NOTE | 2021-05-16 16:10 | XR_ITS ---
PROCEDURE: XR HAND RT MIN 3V CLINICAL INDICATION: Arthropathic psoriasis, unspecified COMPARISON: CR HANDR3 HAND-RT 3 VIEWS from 07/23/2012 CR HANDL3 HAND-LT-3 VIEWS from 07/23/2012 CR HANDR3 HAND-RT 3 VIEWS from 09/25/2016 CR HANDL3 HAND-LT-3 VIEWS from 09/25/2016 FINDINGS: No fracture or dislocation. No lytic or blastic change. There is normal mineralization. The joint spaces are well-preserved. No significant degenerative/arthritic changes. No erosive changes evident. Other findings:None. IMPRESSION: Negative right hand. No change Dictated by: Jared Stevens MD 05/16/2021 17:09 Jared Stevens MD in [place] 05/16/2021 17:09
--- NOTE | 2021-05-16 16:10 | XR_ITS ---
PROCEDURE: XR KNEE RT 3V CLINICAL INDICATION: Arthropathic psoriasis, unspecified COMPARISON: CR KNEE3R KNEE-3 VIEWS-RT from 09/25/2016 CR KNEE3L KNEE-3 VIEWS-LT from 09/25/2016 FINDINGS: No fracture or dislocation. No lytic or blastic change. There is normal mineralization. There are mild osteoarthritic changes on voluming all 3 compartments greatest at the medial compartment. There is increased density in the suprapatellar region consistent with knee joint effusion. A small coarse calcific density is present along the anterior aspect of the medial compartment consistent with a loose body measuring 8 mm. Other findings:None. IMPRESSION: Osteoarthritis of the right knee with loose body and suprapatellar effusion. Osteoarthritis and loose body is not significantly changed. Dictated by: Jared Stevens MD 05/16/2021 17:12 Jared Stevens MD in [place] 05/16/2021 17:12
--- NOTE | 2021-05-16 16:10 | XR_ITS ---
PROCEDURE: XR HAND LT MIN 3V CLINICAL INDICATION: Arthropathic psoriasis, unspecified COMPARISON: CR HANDR3 HAND-RT 3 VIEWS from 07/23/2012 CR HANDL3 HAND-LT-3 VIEWS from 07/23/2012 CR HANDR3 HAND-RT 3 VIEWS from 09/25/2016 CR HANDL3 HAND-LT-3 VIEWS from 09/25/2016 FINDINGS: No fracture or dislocation. No lytic or blastic change. There is normal mineralization. The joint spaces are well-preserved. No significant degenerative/arthritic changes. No erosive changes evident. Other findings:None. IMPRESSION: Negative left hand. No change Dictated by: Jared Stevens MD 05/16/2021 17:10 Jared Stevens MD in [place] 05/16/2021 17:10
--- NOTE | 2021-05-16 16:10 | XR_ITS ---
PROCEDURE: XR HIP LT 2-3V W/PELVIS CLINICAL INDICATION: Arthropathic psoriasis, unspecified COMPARISON: No exams were available for comparison FINDINGS: No fracture or dislocation is evident. No significant degenerative change. No lytic or blastic change. Unremarkable soft tissues. IMPRESSION: Negative left hip Dictated by: Jared Stevens MD 05/16/2021 17:09 Jared Stevens MD in [place] 05/16/2021 17:09
--- NOTE | 2021-05-16 16:10 | XR_ITS ---
PROCEDURE: XR KNEE LT 3V CLINICAL INDICATION: Arthropathic psoriasis, unspecified COMPARISON: CR KNEE3R KNEE-3 VIEWS-RT from 09/25/2016 CR KNEE3L KNEE-3 VIEWS-LT from 09/25/2016 FINDINGS: No fracture or dislocation. No lytic or blastic change. There is normal mineralization. Minimal osteoarthritic changes are present involving the medial compartment and patellofemoral joint overall not significantly changed. Other findings:None. IMPRESSION: Minimal osteoarthritic change of the left knee not significantly changed Dictated by: Jared Stevens MD 05/16/2021 17:39 Jared Stevens MD in [place] 05/16/2021 17:39
--- NOTE | 2021-05-16 16:10 | XR_ITS ---
PROCEDURE: XR FOOT LT MIN 3V CLINICAL INDICATION: Arthropathic psoriasis, unspecified COMPARISON: CR FTL3 FOOT-LT-3 VIEWS from 07/23/2012 CR FTR3 FOOT-RT-3 VIEWS from 09/25/2016 CR FTL3 FOOT-LT-3 VIEWS from 09/25/2016 CR XR FOOT RT MIN 3V from 03/03/2020 FINDINGS: No fracture or dislocation. No lytic or blastic change. There is normal mineralization. The joint spaces are well-preserved. No significant degenerative/arthritic changes. No erosive changes evident. Other findings:None. IMPRESSION: Negative left foot Dictated by: Jared Stevens MD 05/16/2021 17:06 Jared Stevens MD in [place] 05/16/2021 17:06
== END ==
PROVIDERS: PCP Family Medicine; Visit Provider Internal Medicine Rheumatology
DX: L40.50 Arthropathic psoriasis, unspecified (principal)
CPT/HCPCS: 72110; 73130; 73502; 73562; 73630

== ENCOUNTER → 2021-08-04 15:34 | Outpatient (CLI) | payer BC, SELFPAY | PROVIDERS: Visit Provider Nurse Practitioner | DX: U07.1 COVID-19 (principal) | CPT/HCPCS: C9803; U0003; U0005 ==

== ENCOUNTER 2021-11-23 21:46 | Emergency (ER) | payer BC, SELFPAY ==
[2021-11-23 21:47] VITALS: BP 130/81; PULSE 83; RESP 17; TEMP 36.8; O2SAT 95; BMI 28.5
--- NOTE | 2021-11-23 21:51 | ECG_ITS ---
APPROVED REPORT Exam: Resting ECG HR:89 bpm ECG Measurements Heart Rate 89 AXES RI 162 P 62 QRSd 97 QRS 70 QT 352 T 67 QTc 399 Conclusion SINUS RHYTHM NORMAL ECG UNCONFIRMED REPORT Electronically signed by : Silas Lamb MD 11/24/2021 21:09:49
[2021-11-23 22:00] VITALS: BP 120/75; PULSE 84; RESP 16; O2SAT 93
[2021-11-23 22:18] VITALS: BP 105/78; PULSE 79; RESP 12; O2SAT 95; BMI 36.0
--- NOTE | 2021-11-23 22:22 | PC.NURSE ---
called poison control and s/w Daisy, they recommend to observe for 6 hr (peak time) if BP and HR are stable pt could be d/c. State pressers may be required for BP support. Give IVF and check asa, tylenol, and uds level.
[2021-11-23 22:30] VITALS: BP 108/76; PULSE 79; RESP 13; O2SAT 93
[2021-11-23 22:35] LABS: Basophils # 0.2 K/mm3 (0-0.2); Basophils % 1.9 % (0.1-2.0); Eosinophils # 0.3 K/mm3 (0.0-0.4); Eosinophils % 2.2 % (0.1-12.0); Hematocrit 43.4 % (37.0-47.0); Hemoglobin 14.5 g/dL (12.2-16.2); Lymphocytes # 2.8 K/mm3 (0.7-4.5); Lymphocytes % 23.9 % (10-50); Mean Corpuscular HGB Conc 33.4 g/dL (31.8-35.4); Mean Corpuscular Hemoglobin 32.1 pg (27.0-31.2); Mean Platelet Volume 8.3 fl (7.4-10.4); Monocytes # 0.7 K/mm3 (0.1-1.0); Monocytes % 5.7 % (1.7-9.3); Neutrophils # 7.7 K/mm3 (1.8-7.8); Neutrophils % 66.3 % (37.0-80.0); Platelet Count 390 K/mm3 (142-424); Red Blood Count 4.52 M/mm3 (4.20-5.40); Red Cell Distribution Width 13.5 % (11.5-17.5); White Blood Count 11.6 K/mm3 (4.8-10.8)
[2021-11-23 22:46] LABS: Alanine Aminotransferase 39 U/L (12-78); Albumin Level 4.3 g/dl (3.5-5.0); Albumin/Globulin Ratio 1.4 (1.1-1.8); Alkaline Phosphatase 77 U/L (38-126); Anion Gap 11.8 mEq/L (5-15); Aspartate Amino Transferase 33 U/L (14-36); Bilirubin,Total 0.4 mg/dl (0.2-1.3); Blood Urea Nitrogen 16 mg/dl (7-17); Calcium 9.4 mg/dl (8.4-10.2); Carbon Dioxide 25 mmol/L (22.0-30.0); Chloride 103 mmol/L (98-107); Creatinine Clearance Estimated 111 mL/min (50-200); Estimated Glomerular Filt Rate 59 ml/min (>60); GFR (African American) 71 ML/MIN (>60); Glucose 107 mg/dl (74-100); Potassium 3.8 mmoL/L (3.5-5.1); Sodium 136 mmol/L (136-145); Total Protein,Serum 7.3 g/dl (6.3-8.2)
[2021-11-23 22:49] LABS: Acetaminophen < 10 ug/ml (10-30); Ethyl Alcohol < 10 mg/dl (0-10); Salicylate < 1.0 mg/dL (2.0-20.0)
[2021-11-23 22:51] LABS: C-Reactive Protein 4.9 mg/L (0-4)
--- NOTE | 2021-11-23 22:54 | HMH.EDOD ---
ED Disposition Clinical Impression: Accidental drug ingestion Qualifiers: Encounter type: initial encounter Qualified Code(s): T50.901A - Poisoning by unspecified drugs, medicaments and biological substances, accidental (unintentional), initial encounter Disposition: Home, Self-Care Condition on Discharge: Good Instructions: Tips for Safely Using Medications Additional Instructions: call pcp for follow up Referrals: Sydnie Godwin MD [Primary Care Provider] - - Critical Care Critical Care Time: No Attestation: On 11/23/21, the high probability of a clinically significant, sudden or life threatening deterioration of the following system(s) required my full and direct attention, intervention and personal management. The time I documented below is in addition to time spent performing reported procedures but includes the following listed in this critical care notation. Medical Decision Making - Medical Records Medical records reviewed: Yes: I reviewed the patient's medical records. - Lito Inquiry Pt receiving controlled substance: No Vital Signs: 11/23/21 21:47 11/23/21 22:00 11/23/21 22:18 Temperature 98.2 F Temperature Source Oral Pulse Rate 84 79 Pulse Rate [Right] 83 Respiratory Rate 17 16 12 Blood Pressure 120/75 105/78 L Blood Pressure [Right Arm] 130/81 Blood Pressure Mean [Right Arm] 97 02 Sat by Pulse Oximetry 95 93 L 95 Oxygen Delivery Method Room Air Oxygen Flow Rate (LPM) 11/23/21 22:30 11/23/21 23:00 11/23/21 23:15 Temperature Temperature Source Pulse Rate 79 72 78 Pulse Rate [Right] Respiratory Rate 13 21 15 Blood Pressure 108/76 L 109/72 L 105/78 L Blood Pressure [Right Arm] Blood Pressure Mean [Right Arm] 02 Sat by Pulse Oximetry 93 L 93 L 95 Oxygen Delivery Method Nasal Cannula Oxygen Flow Rate (LPM) 2 11/24/21 00:00 11/24/21 00:30 11/24/21 01:00 Temperature Temperature Source Pulse Rate 66 72 73 Pulse Rate [Right] Respiratory Rate 13 16 16 Blood Pressure 98/45 L 101/45 L 88/47 L Blood Pressure [Right Arm] Blood Pressure Mean [Right Arm] 02 Sat by Pulse Oximetry 93 L 92 L 93 L Oxygen Delivery Method Nasal Cannula Nasal Cannula Oxygen Flow Rate (LPM) 2 2 11/24/21 01:31 Temperature Temperature Source Pulse Rate 71 Pulse Rate [Right] Respiratory Rate 17 Blood Pressure 123/80 Blood Pressure [Right Arm] Blood Pressure Mean [Right Arm] 02 Sat by Pulse Oximetry 97 Oxygen Delivery Method Nasal Cannula Oxygen Flow Rate (LPM) 2 - Lab Data Lab results reviewed: Yes: I reviewed the patient's lab results. Lab Results 11/23/21 22:21: WBC 11.6 H, RBC 4.52, Hgb 14.5, Hct 43.4, MCV 96.0, MCH 32.1 H, MCHC 33.4, RDW 13.5, Plt Count 390, MPV 8.3, Neut % (Auto) 66.3, Lymph % (Auto) 23.9, [place] % (Auto) 5.7, Eos % (Auto) 2.2, Baso % (Auto) 1.9, Neut # (Auto) 7.7, Lymph # (Auto) 2.8, [place] # (Auto) 0.7, Eos # (Auto) 0.3, Baso # (Auto) 0.2, ESR 25 H 11/23/21 22:21: Sodium 136, Potassium 3.8, Chloride 103, Carbon Dioxide 25, Anion Gap 11.8, BUN 16, Creatinine 1.00, Estimated Creat Clear 111, Estimated GFR 59, Est GFR ( Amer) 71, Glucose 107 H, Calcium 9.4, Magnesium 2.0, Total Bilirubin 0.4, AST 33, ALT 39, Alkaline Phosphatase 77, Troponin I < 0.01, C-Reactive Protein 4.9 H, Total Protein 7.3, Albumin 4.3, Globulin 3.0, Albumin/Globulin Ratio 1.4, Procalcitonin 0.065 11/23/21 22:21: Salicylates < 1.0 L, Acetaminophen < 10 L 11/23/21 22:21: Plasma/Serum Alcohol < 10 11/23/21 23:55: Urine Color Yellow, Urine Appearance Clear, Urine pH 5.5, Ur Specific [place] 1.010, Urine Protein Negative, Urine Glucose (UA) Negative, Urine Ketones Negative, Urine Blood Negative, Urine Nitrate Negative, Urine Bilirubin Negative, Urine Urobilinogen 0.2, Ur Leukocyte Esterase Negative, Urine WBC 3-5, Ur Squamous Epith Cells Tntc, Urine Bacteria 1+, Urine Mucus 1+ 11/23/21 23:55: Urine Opiates Screen Negative, Urine Methadone Screen Negative, Ur
[2021-11-23 23:00] VITALS: BP 109/72; PULSE 72; RESP 21; O2SAT 93
[2021-11-23 23:04] LABS: Erythrocyte Sedimentation Rate 25 mm/hr (0-20); Procalcitonin 0.065 ng/mL (0.0-2.0); Troponin I < 0.01 ng/ml (0.00-0.034)
[2021-11-23 23:15] VITALS: BP 105/78; PULSE 78; RESP 15; O2SAT 95
[2021-11-23 23:58] LABS: Microscopic, Urine URINE MICROSCOPIC (MICROSCOPIC)
[2021-11-24] VITALS: BP 98/45; PULSE 66; RESP 13; O2SAT 93
[2021-11-24 00:02] LABS: Appearance,Urine CLEAR (Clear); Bilirubin,Urine Negative (Negative); Blood, Urine Negative (Negative); Color,Urine YELLOW (Yellow); Glucose,Urine (UA) Negative (Negative); Ketones,Urine Negative (Negative); Leukocyte Esterase,Urine Negative (Negative); Nitrate,Urine Negative (Negative); PH,Urine 5.5 (5.0-8.5); Protein,Urine Negative (Negative); Urobilinogen,Urine 0.2 EU/dl (0.2)
[2021-11-24 00:13] LABS: Coronavirus 19, PCR Not Detected (NotDetected); Influenza A, PCR Not Detected (NotDetected); Influenza B, PCR Not Detected (NotDetected)
[2021-11-24 00:13] LABS: Barbiturates Screen,Urine Negative ng/ml (<200)
[2021-11-24 00:14] LABS: Amphetamine/Metha Screen,Urine Positive ng/ml (<1000); Benzodiazepines Screen,Urine Negative ng/ml (<200)
[2021-11-24 00:15] LABS: Cannabinoid Screen,Urine Negative ng/ml (<50)
[2021-11-24 00:16] LABS: Cocaine Screen,Urine Negative ng/ml (<300); Methadone Screen,Urine Negative ng/ml (<300)
[2021-11-24 00:17] LABS: Opiate Screen,Urine Negative ng/ml (<300); Phencyclidine Screen,Urine Negative ng/ml (<25)
[2021-11-24 00:30] VITALS: BP 101/45; PULSE 72; RESP 16; O2SAT 92
--- NOTE | 2021-11-24 00:37 | PC.NURSE ---
Poison control called for an update, s/w Daisy.
[2021-11-24 00:40] LABS: Bacteria,Urine 1+ /lpf; Mucus,Urine 1+ /lpf; Squamous Epithelial Cell,Urine TNTC #/hpf (0-5)
[2021-11-24 01:00] VITALS: BP 88/47; PULSE 73; RESP 16; O2SAT 93
[2021-11-24 01:30] VITALS: BP 123/80; PULSE 72; O2SAT 97
[2021-11-24 01:31] VITALS: BP 123/80; PULSE 71; RESP 17; O2SAT 97
[2021-11-24 02:21] VITALS: BP 122/76; PULSE 71; RESP 16; TEMP 36.8; O2SAT 95
== END 2021-11-24 02:42 | disposition home or self-care (01) ==
PROVIDERS: Emergency Provider Emergency Medicine; PCP Family Medicine
DX: T46.4X1A Poisoning by angiotensin-converting-enzyme inhibitors, accidental (unintentional), initial encounter (principal); I10 Essential (primary) hypertension; K21.9 Gastro-esophageal reflux disease without esophagitis; Z79.899 Other long term (current) drug therapy; F17.210 Nicotine dependence, cigarettes, uncomplicated
CPT/HCPCS: 80053; 80305; 80329; 81001; 83735; 84145; 84484; 85025; 85651; 86140; 93005; 99284; C9803; U0003; U0005

== ENCOUNTER 2022-03-04 17:19 | Emergency (ER) | payer BC, SELFPAY ==
[2022-03-04 17:56] VITALS: BP 147/87; PULSE 76; RESP 19; TEMP 37; O2SAT 98; BMI 28.2
--- NOTE | 2022-03-04 18:02 | HMH.EDUTC ---
[facility] [place] Clinical Impression: Maxillary sinusitis, acute Qualifiers: Recurrence: non-recurrent Qualified Code(s): J01.00 - Acute maxillary sinusitis, unspecified Disposition: Home, Self-Care Condition on Discharge: Good Instructions: DI for Sinusitis Additional Instructions: Start antibiotic patient to take as ordered for a full length of time even if you feel better. Sinus infections do not get better overnight. It may take 2-3 days to notice much improvement so be sure to use conservative measures as discussed for symptoms. Flonase 1 spray each nostril daily to help with nasal congestion, sinus and ear pressure/information Increase fluids Humidifier/vaporizer as needed Tylenol and ibuprofen as needed for fever or pain. If symptoms do not improve or get worse return or be seen in the ER Follow-up with primary care this week Prescriptions: Fluticasone Propionate [Flonase 50mcg nasal spray 16gm] 1 spr NS DAILY 14 Days #9.9 ml Transmission Status: Pending to [facility] Azithromycin [Zithromax 250mg tab] 250 mg PO DIRECTED #6 tab Transmission Status: Pending to [facility] Referrals: Sydnie Godwin MD [Primary Care Provider] - Time of Disposition: 18:07 Medical Decision Making - Lito Inquiry Pt receiving controlled substance: No Vital Signs: 03/04/22 17:56 Temperature 98.6 F Temperature Source Oral Pulse Rate [Right Brachial] 76 Respiratory Rate 19 Blood Pressure [Right Arm] 147/87 H Blood Pressure Mean [Right Arm] 107 Blood Pressure Source [Right Arm] Automatic Cuff Blood Pressure Position [Right Arm] Sitting 02 Sat by Pulse Oximetry 98 [facility] [place] - General Chief complaint: Urgent [facility] Stated complaint: sinus drainage,sorethroat,WOLFE,earache,cough Time Seen by Provider: 03/04/22 18:02 Mode of Arrival: Ambulatory Source of Information: Patient Limitations: No Limitations Description of Symptoms (Recalled from Triage Doc. by RN): PATIENT C/O CONGESTION, HEADACHE, BODY ACHES, EAR ACHE, AND SINUS DRAINAGE/PRESSURE X 1 WEEK HEENT Symptoms (Recalled from RN notes): Yes Resp Symptoms (Recalled from RN notes): No Skin Symptoms (Recalled from RN notes): No MS Symptoms (Recalled from RN notes): No Functional Status (Recalled from RN notes): WNL - History of Present Illness Provider Complaint: 51yr old female presents for sinus pressure,dark yellow/green drainage,sinus pressure and sinus pain since thurs - Related Data Home Medications Medication Instructions Recorded Confirmed Folic Acid [Folic Acid 1mg tablet] 1 mg PO DAILY 04/08/19 03/25/20 Metoprolol Succinate 50 mg PO DAILY 04/08/19 03/25/20 Venlafaxine HCl [Effexor XR 150mg] 150 mg PO DAILY 04/08/19 03/25/20 lisinopriL [Lisinopril 10mg Tab] 20 mg PO BID 04/08/19 03/25/20 metHOTREXate sodium [metHOTREXate 8 tab PO WEEKLY 04/08/19 03/25/20 2.5mg Tablet] cholecalciferol (vitamin D3) 1,250 50 mcg PO QWEEK 03/25/20 03/25/20 mcg (50,000 unit) capsule dextroamphetamine-amphetamine ER 40 mg PO DAILY 03/25/20 03/25/20 20 mg 24hr capsule,extend release vitamin B comp and C no.3 15 mg-10 1 cap PO DAILY 03/25/20 03/25/20 mg-50 mg-5 mg-300 mg capsule Fluticasone/Vilanterol [Breo 1 inh IH DAILY PRN 11/23/21 11/23/21 Ellipta 100-25 Mcg INH] Leucovorin Calcium 5 mg PO WEEKLY 11/23/21 11/23/21 Levothyroxine Sodium [Euthyrox] 50 mcg PO DAILY 11/23/21 11/23/21 Omeprazole [Omeprazole 20mg Tab] 20 mg PO DAILY 11/23/21 11/23/21 Previous Rx's Medication Instructions Recorded phenazopyridine 100 mg tablet 100 mg PO TID PRN 0 Days #6 tab 03/25/20 Azithromycin [Zithromax 250mg 250 mg PO DIRECTED #6 tab 03/04/22 tab] Fluticasone Propionate [Flonase 1 spr NS DAILY 14 Days #9.9 ml 03/04/22 50mcg nasal spray 16gm] Allergies Allergy/AdvReac Type Severity Reaction Status Date / Time cephalexin [From KEFLEX] Allergy Mild Verified 03/25/20 14:08 levofloxacin [LEVOFLOXACIN] Allergy Unknown
[2022-03-04 18:07] VITALS: BP 147/87; PULSE 76; RESP 19; TEMP 37; O2SAT 98
== END 2022-03-04 18:10 | disposition home or self-care (01) ==
PROVIDERS: Emergency Provider Nurse Practitioner Family; PCP Family Medicine
DX: J01.00 Acute maxillary sinusitis, unspecified (principal)
CPT/HCPCS: 99212; G0463

== ENCOUNTER 2022-03-25 14:23 | Emergency (ER) | payer BC, SELFPAY ==
[2022-03-25 14:41] VITALS: BP 125/84; PULSE 70; RESP 17; TEMP 36.6; O2SAT 97; BMI 27.1
[2022-03-25 14:51] LABS: UTC Strep Screen (Rapid) Negative (Negative)
--- NOTE | 2022-03-25 14:51 | EXP.UTC ---
Discharge Plan Disposition Patient Disposition: Home, Self-Care Condition: Good Prescriptions Prescriptions: New amoxicillin [amoxicillin] 500 mg tablet 500 mg PO TID 10 Days Qty: 30 0RF benzonatate [benzonatate] 100 mg capsule 100 mg PO TIDP PRN (Reason: Cough) Qty: 30 0RF methylprednisolone 4 mg Tablets,Dose Pack 4 mg PO DIRECTED Qty: 21 0RF No Action dextroamphetamine-amphetamine [Adderall XR] 20 mg capsule,extended release 24hr 40 mg PO DAILY B Complex Plus Vitamin C 72-05-54-5-300 mg capsule 1 cap PO DAILY Rx Instructions: give with food (meal/snack) cholecalciferol (vitamin D3) 1,250 mcg (50,000 unit) capsule 50 mcg PO QWEEK phenazopyridine 100 mg tablet 100 mg PO TID PRN (Reason: pain) 0 Days Qty: 6 0RF venlafaxine 150 MG capsule,extended release 24hr 150 mg PO DAILY methotrexate sodium 2.5 MG tablet 8 tab PO WEEKLY Label Comments: Pt takes this med every Sunday or Sunday, depending upon when she takes folic acid & vitamin lisinopril 10 MG tablet 20 mg PO BID Label Comments: TAKE 1 TABLET BY MOUTH ONCE DAILY folic acid 1 tablet 1 mg PO DAILY metoprolol succinate 50 MG tablet extended release 24 hr 50 mg PO DAILY levothyroxine 50 MCG tablet 50 mcg PO DAILY leucovorin calcium 5 MG tablet 5 mg PO WEEKLY omeprazole 20 MG tablet,delayed release (DR/EC) 20 mg PO DAILY fluticasone furoate-vilanterol 1 EACH blister with device 1 inh IH DAILY PRN (Reason: shortness of air) azithromycin 250 MG tablet 250 mg PO DIRECTED Qty: 6 0RF Rx Instructions: Take two (2) tablets on day #1, then one (1) tablet day #2 thru #5 fluticasone propionate 120 SPR/BOT bottle 1 spr NS DAILY 14 Days Qty: 9.9 0RF Referrals Follow up/Referrals: Sydnie Godwin MD [Primary Care Provider] - See instructions Clinical Impressions Clinical Impression: Pharyngitis Instructions Patient Instructions: Strep Throat, DI for Strep Throat Discharge ED Provider: Rodrigo Santillan [facility] [place] H[place] General Stated complaint: sore throat, body aches, cough Mode of Arrival: Ambulatory Source of Information: Patient Limitations: No Limitations Time Seen by Provider: 03/25/22 14:50 Description of Symptoms (Recalled from Triage Doc. by RN): pt comes in with c/o sore throat, cough, body aches, headache. symptoms began 3-4 days ago. pt states she had strep 2 weeks ago HEENT Symptoms (Recalled from RN notes): Yes Resp Symptoms (Recalled from RN notes): Yes Skin Symptoms (Recalled from RN notes): No MS Symptoms (Recalled from RN notes): No Functional Status (Recalled from RN notes): n/a History of Present Illness Provider Complaint: She states that for the past 3 days she has had sore throat, chills, cough, and body aches. She was diagnosed with strep throat about 3 weeks ago. seh states that she got better from that, then her current symptoms started. Related Data Home Medications Medication Instructions Recorded Confirmed folic acid 1 mg tablet 1 mg PO DAILY Supplement 04/08/19 03/25/20 lisinopril 10 mg tablet 20 mg PO BID Hypertension 04/08/19 03/25/20 methotrexate sodium 2.5 mg tablet 8 tab PO WEEKLY Arthritis 04/08/19 03/25/20 metoprolol succinate 50 mg 50 mg PO DAILY Hypertension 04/08/19 03/25/20 tablet,extended release 24 hr venlafaxine 150 mg 150 mg PO DAILY Depression 04/08/19 03/25/20 capsule,extended release 24 hr cholecalciferol (vitamin D3) 1,250 50 mcg PO QWEEK Supplement 03/25/20 03/25/20 mcg (50,000 unit) capsule dextroamphetamine-amphetamine ER 40 mg PO DAILY ADHD 03/25/20 03/25/20 20 mg 24hr capsule,extend release (Adderall XR) vitamin B comp and C no.3 15 mg-10 1 cap PO DAILY Supplement 03/25/20 03/25/20 mg-50 mg-5 mg-300 mg capsule (B Complex Plus Vitamin C) fluticasone furoate 100 1 inh inhalation DAILY PRN 11/23/21 11/23/21 mcg-vilanterol 25 mcg/dose shortness of air inhala
[2022-03-25 15:15] VITALS: BP 125/84; PULSE 70; RESP 17; TEMP 36.6
== END 2022-03-25 15:18 | disposition home or self-care (01) ==
PROVIDERS: Emergency Provider Nurse Practitioner Family; PCP Family Medicine
DX: J02.9 Acute pharyngitis, unspecified (principal); M79.10 Myalgia, unspecified site; R05.9 Cough, unspecified; F17.210 Nicotine dependence, cigarettes, uncomplicated
CPT/HCPCS: 87880; 99212; C9803; G0463; U0003; U0005

== ENCOUNTER 2022-04-07 11:32 | Emergency (ER) | payer BC, SELFPAY ==
[2022-04-07 11:51] VITALS: BP 111/72; PULSE 87; RESP 18; TEMP 36.7; O2SAT 97; BMI 27.2
[2022-04-07 11:57] LABS: UTC Strep Screen (Rapid) Negative (Negative)
--- NOTE | 2022-04-07 11:59 | EXP.UTC ---
Discharge Plan Disposition Patient Disposition: Home, Self-Care Condition: Good Prescriptions Prescriptions: New promethazine-DM 6.25-15 mg/5 mL Syrup 5 ml PO Q6H PRN (Reason: Cough) Qty: 240 0RF methylprednisolone 4 mg Tablets,Dose Pack 4 mg PO DIRECTED Qty: 21 0RF ondansetron 4 mg Tablet,Disintegrating 4 mg PO Q8H PRN (Reason: Nausea) Qty: 20 0RF amoxicillin-pot clavulanate 875-125 mg Tablet 1 tab PO Q12H Qty: 20 0RF Discontinued azithromycin 250 MG tablet 250 mg PO DIRECTED Qty: 6 0RF Rx Instructions: Take two (2) tablets on day #1, then one (1) tablet day #2 thru #5 amoxicillin [amoxicillin] 500 mg tablet 500 mg PO TID 10 Days Qty: 30 0RF No Action dextroamphetamine-amphetamine [Adderall XR] 20 mg capsule,extended release 24hr 40 mg PO DAILY B Complex Plus Vitamin C 19-37-83-5-300 mg capsule 1 cap PO DAILY Rx Instructions: give with food (meal/snack) cholecalciferol (vitamin D3) 1,250 mcg (50,000 unit) capsule 50 mcg PO QWEEK phenazopyridine 100 mg tablet 100 mg PO TID PRN (Reason: pain) 0 Days Qty: 6 0RF venlafaxine 150 MG capsule,extended release 24hr 150 mg PO DAILY methotrexate sodium 2.5 MG tablet 8 tab PO WEEKLY Label Comments: Pt takes this med every Sunday or Sunday, depending upon when she takes folic acid & vitamin lisinopril 10 MG tablet 20 mg PO BID Label Comments: TAKE 1 TABLET BY MOUTH ONCE DAILY folic acid 1 tablet 1 mg PO DAILY metoprolol succinate 50 MG tablet extended release 24 hr 50 mg PO DAILY levothyroxine 50 MCG tablet 50 mcg PO DAILY leucovorin calcium 5 MG tablet 5 mg PO WEEKLY omeprazole 20 MG tablet,delayed release (DR/EC) 20 mg PO DAILY fluticasone furoate-vilanterol 1 EACH blister with device 1 inh IH DAILY PRN (Reason: shortness of air) fluticasone propionate 120 SPR/BOT bottle 1 spr NS DAILY 14 Days Qty: 9.9 0RF benzonatate [benzonatate] 100 mg capsule 100 mg PO TIDP PRN (Reason: Cough) Qty: 30 0RF methylprednisolone 4 mg Tablets,Dose Pack 4 mg PO DIRECTED Qty: 21 0RF Referrals Follow up/Referrals: Sydnie Godwin MD [Primary Care Provider] - See instructions Activity Restrictions/Add. Instructions Additional Instructions/Restrictions: Drink plenty of fluids. Take tylenol or ibuprofen for pain or fever. Take the medications as directed. Follow up with your regular doctor. GO TO THE ER FOR ANY WORSENING SYMPTOMS Quarantine until you know the results of your viral swab test. Notify your school or workplace of your results and follow their instructions regarding return to work/school. Don't start the oral steroids until tomorrow, since you had the shot here today. The cough medication (promethazine dm) will make you drowsy, so don't drive or operate heavy machinery after taking it. Clinical Impressions Clinical Impression: Pharyngitis, Leukocytosis, Bronchitis Instructions Patient Instructions: DI for Acute Bronchitis, Methylprednisolone, Ceftriaxone Injection, Methylprednisolone Injection Discharge ED Provider: Rodrigo Santillan [facility] [place] General Stated complaint: Sore throat, loss of voice Mode of Arrival: Ambulatory Source of Information: Patient Limitations: No Limitations Time Seen by Provider: 04/07/22 11:59 Description of Symptoms (Recalled from Triage Doc. by RN): pt comes in with c/o nausea, hoarseness, coughing, no bladder control, headache, sore throat, lethargy. pt states symptoms have been ongoing for 1 month. pt has been to [facility]x and her pcp. pt took at covid test thursday 04/05 and it was negative. HEENT Symptoms (Recalled from RN notes): Yes Resp Symptoms (Recalled from RN notes): Yes Skin Symptoms (Recalled from RN notes): No MS Symptoms (Recalled from RN notes): No Functional Status (Recalled from RN notes): n/a History of Present Illness Provider Complaint:
--- NOTE | 2022-04-07 12:33 | XR_ITS ---
FINAL REPORT TECHNIQUE: Chest PA & Lateral CLINICAL HISTORY: cough, congestion FINDINGS: 2 views of the chest were performed. The heart size is normal. The mediastinum is within normal limits. There is no acute cardiopulmonary process. There are no pleural effusions. There is no pneumothorax. The bony thorax appears intact. IMPRESSION: No acute cardiopulmonary process. Reviewed, Interpreted and Dictated by Fransisco Hernandez MD Transcribed by Dwayne De La Paz Authenticated and [facility]
[2022-04-07 13:00] LABS: Basophils # 0.1 K/mm3 (0-0.2); Basophils % 1.1 % (0.1-2.0); Eosinophils # 0.3 K/mm3 (0.0-0.4); Eosinophils % 2.7 % (0.1-12.0); Hematocrit 42.9 % (37.0-47.0); Hemoglobin 14.1 g/dL (12.2-16.2); Lymphocytes # 1.9 K/mm3 (0.7-4.5); Lymphocytes % 15.9 % (10-50); Mean Corpuscular HGB Conc 32.9 g/dL (31.8-35.4); Mean Corpuscular Hemoglobin 31.9 pg (27.0-31.2); Mean Platelet Volume 8.3 fl (7.4-10.4); Monocytes # 0.9 K/mm3 (0.1-1.0); Monocytes % 7.4 % (1.7-9.3); Neutrophils # 8.8 K/mm3 (1.8-7.8); Neutrophils % 72.9 % (37.0-80.0); Platelet Count 381 K/mm3 (142-424); Red Blood Count 4.42 M/mm3 (4.20-5.40); Red Cell Distribution Width 13.4 % (11.5-17.5); White Blood Count 12.1 K/mm3 (4.8-10.8)
[2022-04-07 13:15] LABS: Chloride 102 mmol/L (98-107)
[2022-04-07 13:16] LABS: Potassium 4.1 mmoL/L (3.5-5.1); Sodium 139 mmol/L (136-145)
[2022-04-07 13:19] LABS: Anion Gap 11.1 mEq/L (5-15); Blood Urea Nitrogen 5 mg/dl (7-17); Calcium 8.9 mg/dl (8.4-10.2); Carbon Dioxide 30 mmol/L (22.0-30.0); Creatinine Clearance Estimated 120 mL/min (50-200); Estimated Glomerular Filt Rate 89 ml/min (>60); GFR (African American) 107 ML/MIN (>60); Glucose 87 mg/dl (74-100)
[2022-04-07 14:11] LABS: Adenovirus,PCR Not Detected (NotDetected); Bordetella Pertussis Not Detected (NotDetected); Chlamydophila Pneumoniae, PCR Not Detected (NotDetected); Coronavirus 19, PCR Not Detected (NotDetected); Coronavirus 229E Not Detected (NotDetected); Coronavirus NL63 Not Detected (NotDetected); Coronavirus OC43 Not Detected (NotDetected); Coronovirus HKU1,PCR Not Detected (NotDetected); Human Metapneumovirus Not Detected (NotDetected); Influenza A, PCR Not Detected (NotDetected); Influenza AH1, 2009 Not Detected (NotDetected); Influenza AH1, PCR Not Detected (NotDetected); Influenza AH3,PCR Not Detected (NotDetected); Influenza B, PCR Not Detected (NotDetected); Mycoplasma Pneumoniae, PCR Not Detected (NotDetected); Parainfluenza 1, PCR Not Detected (NotDetected); Parainfluenza 2, PCR Not Detected (NotDetected); Parainfluenza 3, PCR Not Detected (NotDetected); Parainfluenza 4, PCR Not Detected (NotDetected); Respiratory Syncytial Virus Not Detected (NotDetected)
[2022-04-07 14:13] VITALS: BP 111/72; PULSE 87; RESP 18; TEMP 36.7
[2022-04-07 17:50] LABS: Rhinovirus/Enterovirus Detected (NotDetected)
== END 2022-04-07 14:14 | disposition home or self-care (01) ==
PROVIDERS: Emergency Provider Nurse Practitioner Family; PCP Family Medicine
DX: J40 Bronchitis, not specified as acute or chronic (principal); D72.829 Elevated white blood cell count, unspecified
CPT/HCPCS: 71046; 80048; 85025; 87581; 87632; 87798; 87880; 96365; 96372; 99213; C9803; G0463; U0003; U0005

== ENCOUNTER 2022-05-17 16:47 | Emergency (ER) | payer BC, SELFPAY ==
[2022-05-17 16:49] VITALS: BP 122/88; PULSE 85; RESP 18; TEMP 36.7; O2SAT 95; BMI 28.3
--- NOTE | 2022-05-17 17:00 | CT_ITS ---
PROCEDURE INFORMATION: Exam: CT Abdomen And Pelvis With Contrast Exam date and time: 05/17/2022 5:41 PM Age: 52 years old Clinical indication: Abdominal pain; Additional info: Upper abdominal pain, bloating, vomiting TECHNIQUE: Imaging protocol: Computed tomography of the abdomen and pelvis with contrast. Radiation optimization: All CT scans at this facility use at least one of these dose optimization techniques: automated exposure control; mA and/or kV adjustment per patient size (includes targeted exams where dose is matched to clinical indication); or iterative reconstruction. Contrast material: ISOVUE; Contrast volume: 75 ml; Contrast route: IV; COMPARISON: CT ABDOMEN PELVIS W CON 04/08/2019 3:32 PM FINDINGS: Liver: Normal. No mass. Gallbladder and bile ducts: Normal. No calcified stones. No ductal dilation. Pancreas: Normal. No ductal dilation. Spleen: Normal. No splenomegaly. Adrenal glands: Normal. No mass. Kidneys and ureters: Normal. No hydronephrosis. Stomach and bowel: Constipation. No obstruction. No mucosal thickening. Appendix: No evidence of appendicitis. Intraperitoneal space: Unremarkable. No free air. No significant fluid collection. Vasculature: Unremarkable. No abdominal aortic aneurysm. Lymph nodes: Unremarkable. No enlarged lymph nodes. Urinary bladder: Unremarkable as visualized. Reproductive: Hysterectomy. Bones/joints: Unremarkable. No acute fracture. Soft tissues: Unremarkable. IMPRESSION: No acute findings.
--- NOTE | 2022-05-17 17:01 | HMH.EDGENADL ---
Discharge Plan Disposition Patient Disposition: Home, Self-Care Condition: Good Prescriptions Prescriptions: No Action dextroamphetamine-amphetamine [Adderall XR] 20 mg capsule,extended release 24hr 40 mg PO DAILY B Complex Plus Vitamin C 44-73-25-5-300 mg capsule 1 cap PO DAILY Rx Instructions: give with food (meal/snack) cholecalciferol (vitamin D3) 1,250 mcg (50,000 unit) capsule 50 mcg PO QWEEK phenazopyridine 100 mg tablet 100 mg PO TID PRN (Reason: pain) 0 Days Qty: 6 0RF venlafaxine 150 MG capsule,extended release 24hr 150 mg PO DAILY methotrexate sodium 2.5 MG tablet 8 tab PO WEEKLY Label Comments: Pt takes this med every Sunday or Sunday, depending upon when she takes folic acid & vitamin lisinopril 10 MG tablet 20 mg PO BID Label Comments: TAKE 1 TABLET BY MOUTH ONCE DAILY folic acid 1 tablet 1 mg PO DAILY metoprolol succinate 50 MG tablet extended release 24 hr 50 mg PO DAILY promethazine-DM 6.25-15 mg/5 mL Syrup 5 ml PO Q6H PRN (Reason: Cough) Qty: 240 0RF methylprednisolone 4 mg Tablets,Dose Pack 4 mg PO DIRECTED Qty: 21 0RF ondansetron 4 mg Tablet,Disintegrating 4 mg PO Q8H PRN (Reason: Nausea) Qty: 20 0RF amoxicillin-pot clavulanate 875-125 mg Tablet 1 tab PO Q12H Qty: 20 0RF levothyroxine 50 MCG tablet 50 mcg PO DAILY leucovorin calcium 5 MG tablet 5 mg PO WEEKLY omeprazole 20 MG tablet,delayed release (DR/EC) 20 mg PO DAILY fluticasone furoate-vilanterol 1 EACH blister with device 1 inh IH DAILY PRN (Reason: shortness of air) fluticasone propionate 120 SPR/BOT bottle 1 spr NS DAILY 14 Days Qty: 9.9 0RF benzonatate [benzonatate] 100 mg capsule 100 mg PO TIDP PRN (Reason: Cough) Qty: 30 0RF methylprednisolone 4 mg Tablets,Dose Pack 4 mg PO DIRECTED Qty: 21 0RF Referrals Follow up/Referrals: Sydnie Godwin MD [Primary Care Provider] - See instructions Activity Restrictions/Add. Instructions Additional Instructions/Restrictions: You were evaluated in the emergency department today for abdominal pain. At this time, your white blood cell count is high, but your other labs are reassuring. CT scan does not show any acute abnormalities. Please follow-up with your primary care provider over the next 48 hours. Return to the emergency department for any new or worsening symptoms. Clinical Impressions Clinical Impression: Abdominal pain, Leukocytosis Instructions Patient Instructions: DI for Acute Abdominal Pain Discharge ED Provider: Mable [facility] HPI General Chief complaint: Abdominal Pain Stated complaint: Stomach swollen,high WBC Time Seen by Provider: 05/17/22 16:53 Mode of Arrival: Ambulatory Source of Information: Patient Limitations: No Limitations History of Present Illness HPI narrative: This patient is a 52-year-old female with a history of hypothyroidism, IBS, and hysterectomy presented to the emergency department for evaluation of upper abdominal pain and bloating. She states that this has been going on for several weeks, and she has been vomiting each night. She states that she went to see Dr. Godwin today and was told that her white count was 19. Given this, they sent her to the ED for evaluation with concern for intra-abdominal infection. Patient states that she is not able to eat very much secondary to the bloating. She states that she has had no fevers, chills, or other concerns. She denies any changes in her bowel movements, stating that she is typically constipated but has had bowel movements over the weekend. She denies any other concerns at this time. Related Data Home Medications Medication Instructions Recorded Confirmed folic acid 1 mg tablet 1 mg PO DAILY Supplement 04/08/19 03/25/20 lisinopril 10 mg tablet 20 mg PO BID Hypertension 04/08/19 03/25/20 methotrexate sodium 2.5 mg tablet 8 tab PO WEEK
[2022-05-17 17:31] LABS: Microscopic, Urine URINE MICROSCOPIC (MICROSCOPIC)
[2022-05-17 17:33] LABS: Appearance,Urine CLEAR (Clear); Bilirubin,Urine Negative (Negative); Blood, Urine Negative (Negative); Color,Urine YELLOW (Yellow); Glucose,Urine (UA) Negative (Negative); Ketones,Urine Negative (Negative); Leukocyte Esterase,Urine Negative (Negative); Nitrate,Urine Negative (Negative); Protein,Urine Negative (Negative); Specific Gravity, Urine 1.025 (1.005-1.030)
[2022-05-17 17:38] LABS: Basophils # 0.1 K/mm3 (0-0.2); Basophils % 0.5 % (0.1-2.0); Eosinophils # 0.3 K/mm3 (0.0-0.4); Eosinophils % 1.6 % (0.1-12.0); Hematocrit 42.1 % (37.0-47.0); Hemoglobin 13.6 g/dL (12.2-16.2); Lymphocytes # 2.8 K/mm3 (0.7-4.5); Lymphocytes % 13.8 % (10-50); Mean Corpuscular HGB Conc 32.3 g/dL (31.8-35.4); Mean Corpuscular Hemoglobin 31.9 pg (27.0-31.2); Mean Corpuscular Volume 98.9 fl (81-99); Mean Platelet Volume 8.4 fl (7.4-10.4); Monocytes # 0.8 K/mm3 (0.1-1.0); Monocytes % 4.1 % (1.7-9.3); Neutrophils # 15.9 K/mm3 (1.8-7.8); Platelet Count 381 K/mm3 (142-424); Red Blood Count 4.26 M/mm3 (4.20-5.40); Red Cell Distribution Width 13.8 % (11.5-17.5); White Blood Count 19.9 K/mm3 (4.8-10.8)
[2022-05-17 17:39] LABS: MANUAL DIFFERENTIAL MANUAL DIFFERENTIAL (MANUAL DIFF)
[2022-05-17 17:42] LABS: Chloride 104 mmol/L (98-107); Sodium 138 mmol/L (136-145)
[2022-05-17 17:44] LABS: Blood Urea Nitrogen 9 mg/dl (7-17); Creatinine Clearance Estimated 144 mL/min (50-200); Estimated Glomerular Filt Rate 105 ml/min (>60); GFR (African American) 128 ML/MIN (>60)
[2022-05-17 17:45] LABS: Alanine Aminotransferase 24 U/L (12-78); Albumin Level 4.2 g/dl (3.5-5.0); Albumin/Globulin Ratio 1.6 (1.1-1.8); Alkaline Phosphatase 84 U/L (38-126); Aspartate Amino Transferase 25 U/L (14-36); Bilirubin,Total 0.2 mg/dl (0.2-1.3); Calcium 9.2 mg/dl (8.4-10.2); Carbon Dioxide 27 mmol/L (22.0-30.0); Globulin 2.7 g/dL (1.3-3.2); Glucose 82 mg/dl (74-100); Lipase 122 U/L (23-300); Total Protein,Serum 6.9 g/dl (6.3-8.2)
[2022-05-17 17:46] LABS: RBC,Urine Occasional #/hpf (0-3); WBC,Urine Occasional #/hpf (0-3)
[2022-05-17 17:49] LABS: Lactic Acid 0.8 mmol/L (0.7-2.1)
[2022-05-17 17:55] LABS: Eosinophils % 3 % (0-3); Lymphocytes % 20 % (10-50); Monocytes % 5 % (2-9); Neutrophils % 72 % (42-76); Platelet Estimate Normal; RBC Morphology Normal; Total Cells Counted 100
--- NOTE | 2022-05-17 17:57 | PC.NURSE ---
pt return from CT
--- NOTE | 2022-05-17 18:51 | PC.NURSE ---
Addendum entered by Lisa Hardin RN 05/17/22 18:52: Génesis from rad states Ct scan is being read now. Original Note: contacted rad to check on status of Ct scan results, states will check and call ER back
[2022-05-17 19:02] VITALS: BP 135/93; PULSE 77; O2SAT 100
--- NOTE | 2022-05-17 19:20 | PC.NURSE ---
shift change report given to jeremy erwin and chaunceyrn
[2022-05-17 19:40] VITALS: BP 133/88; PULSE 78; RESP 18; TEMP 37.2; O2SAT 99
== END 2022-05-17 19:52 | disposition home or self-care (01) ==
PROVIDERS: Emergency Provider Emergency Medicine; PCP Family Medicine
DX: R10.9 Unspecified abdominal pain (principal); R06.02 Shortness of breath; D72.829 Elevated white blood cell count, unspecified; R05.9 Cough, unspecified; R11.10 Vomiting, unspecified; I10 Essential (primary) hypertension; K58.9 Irritable bowel syndrome, unspecified; F17.210 Nicotine dependence, cigarettes, uncomplicated; Z79.51 Long term (current) use of inhaled steroids; Z79.52 Long term (current) use of systemic steroids; Z79.899 Other long term (current) drug therapy; Z88.0 Allergy status to penicillin; Z88.1 Allergy status to other antibiotic agents; Z88.2 Allergy status to sulfonamides; Z88.3 Allergy status to other anti-infective agents
CPT/HCPCS: 74177; 80053; 81001; 83605; 83690; 85007; 85025; 99285; Q9967

== ENCOUNTER → 2022-11-10 11:22 | Outpatient (CLI) | payer BC, SELFPAY | LOC: RAD 11:22 | PROVIDERS: PCP Family Medicine; Visit Provider Family Medicine | DX: R07.9 Chest pain, unspecified (principal) | CPT/HCPCS: 78452; 93017; A9502 ==

== ENCOUNTER 2023-01-11 11:24 | Day surgery (SDC) | payer BC, SELFPAY ==
[2023-01-11] VITALS (11 sets, daily range): BP systolic 89–108; BP diastolic 51–70; PULSE 62–75; RESP 17–20; O2SAT 90–99; BMI 28.0
--- NOTE | 2023-01-11 07:26 | IR_ITS ---
APPROVED REPORT Patient Location: Outpatient Supply Chain Associate: DESIRAE Castillo RT (R) PROCEDURES Left heart catheterization Left ventriculogram Selective coronary angiogram INDICATION Angina pectoris, High risk abnormal Myoview, Informed consent was obtained prior to the procedure. COMPLICATIONS None Estimated Blood Loss: Less than 10 ML TECHNIQUE One percent lidocaine used to anesthetize the right anterior aspect of the wrist. The right radial artery was accessed via the Seldinger technique. A 6 Latvian sheath was placed in the right radial artery. 150 mg magnesium sulfate, 800 mcg of nitroglycerin, 1mg Lidocaine and 5000 U Heparin were given through the arterial sheath. The papa catheter was also used to perform left heart catheterization, left ventriculogram and selective coronary angiogram. At the end of the procedure the sheath was removed good hemostasis was achieved using Traclet band, patient was transferred to the postop holding area in stable condition. ANGIOGRAPHIC RESULTS The left main artery Normal The left anterior descending artery Has mild proximal and mid vessel 10% luminal regularities The circumflex artery Nondominant with proximal 10% luminal irregularities The right coronary artery Large and dominant with mid vessel smooth 10 to 20% luminal irregularities The SKELTON ventriculogram reveals Normal 65% The left ventricular end-diastolic pressure Elevated at 25 mmHg IMPRESSION Mild nonflow limiting coronary artery disease Normal ejection fraction Elevated LVEDP consistent with diastolic dysfunction PLAN 1. Risk factor modification for coronary disease 2. Treatment of underlying diastolic dysfunction with diuretics 3. Tight control of blood pressure 4. Recommend sleep study Electronically signed by : Juan Miguel Bowers MD 01/11/2023 12:39:53
[2023-01-11 11:48] LABS: Basophils # 0.1 K/mm3 (0-0.2); Eosinophils # 0.4 K/mm3 (0.0-0.4); Eosinophils % 4.7 % (0.1-12.0); Hematocrit 47.2 % (37.0-47.0); Hemoglobin 14.8 g/dL (12.2-16.2); Lymphocytes # 3.4 K/mm3 (0.7-4.5); Lymphocytes % 39.9 % (10-50); Mean Corpuscular HGB Conc 31.3 g/dL (31.8-35.4); Mean Corpuscular Hemoglobin 30.4 pg (27.0-31.2); Mean Corpuscular Volume 96.9 fl (81-99); Mean Platelet Volume 8.6 fl (7.4-10.4); Monocytes # 0.6 K/mm3 (0.1-1.0); Monocytes % 7.4 % (1.7-9.3); Neutrophils % 47.1 % (37.0-80.0); Platelet Count 380 K/mm3 (142-424); Red Blood Count 4.87 M/mm3 (4.20-5.40); Red Cell Distribution Width 13.2 % (11.5-17.5); White Blood Count 8.4 K/mm3 (4.8-10.8)
[2023-01-11 11:55] LABS: Chloride 104 mmol/L (98-107); Sodium 140 mmol/L (136-145)
[2023-01-11 11:56] LABS: Potassium 4.7 mmoL/L (3.5-5.1)
[2023-01-11 11:58] LABS: Blood Urea Nitrogen 20 mg/dl (7-17); Creatinine Clearance Estimated 85 mL/min (50-200); Estimated Glomerular Filt Rate 58 ml/min (>60); GFR (African American) 71 ML/MIN (>60)
[2023-01-11 11:59] LABS: Anion Gap 15.7 mEq/L (5-15); Calcium 9.3 mg/dl (8.4-10.2); Carbon Dioxide 25 mmol/L (22.0-30.0); Glucose 95 mg/dl (74-100)
== END 2023-01-11 15:30 | disposition home or self-care (01) ==
PROVIDERS: PCP Family Medicine; Visit Provider Internal Medicine
DX: I25.119 Atherosclerotic heart disease of native coronary artery with unspecified angina pectoris (principal); I10 Essential (primary) hypertension; E78.5 Hyperlipidemia, unspecified; E03.9 Hypothyroidism, unspecified
CPT/HCPCS: 80048; 85025; 93458; 99152; C1725; C1769; J1644; Q9967

== ENCOUNTER 2023-07-04 13:56 | Emergency (ER) | payer BC, SELFPAY ==
[2023-07-04 14:40] VITALS: BP 130/83; PULSE 107; RESP 18; TEMP 36.7; O2SAT 99; BMI 27.7
--- NOTE | 2023-07-04 14:41 | EXP.UTC ---
Discharge Plan Disposition Patient Disposition: Home, Self-Care Condition: Good Prescriptions Prescriptions: New benzonatate [benzonatate] 100 mg capsule 100 mg PO TIDP PRN (Reason: Cough) Qty: 30 0RF methylprednisolone 4 mg Tablets,Dose Pack 4 mg PO DIRECTED Qty: 21 0RF ondansetron 4 mg Tablet,Disintegrating 4 mg PO Q8H PRN (Reason: Nausea) Qty: 12 0RF No Action dextroamphetamine-amphetamine [Adderall XR] 20 mg capsule,extended release 24hr 40 mg PO DAILY B Complex Plus Vitamin C 56-49-99-5-300 mg capsule 1 cap PO DAILY Rx Instructions: give with food (meal/snack) cholecalciferol (vitamin D3) 1,250 mcg (50,000 unit) capsule 50 mcg PO ONCE infliximab [Remicade] 100 mg recon soln 100 mg IV Q8W albuterol sulfate 90 mcg/actuation HFA aerosol inhaler 1 inh inhalation ONCE PRN (Reason: .) rosuvastatin 20 mg tablet 20 mg PO DAILY Patient Comments: TAKE 1 TABLET BY MOUTH ONCE DAILY AT BEDTIME FOR 30 DAYS venlafaxine 150 MG capsule,extended release 24hr 150 mg PO DAILY lisinopril 10 MG tablet 20 mg PO BID Patient Comments: TAKE 1 TABLET BY MOUTH ONCE DAILY folic acid 1 tablet 1 mg PO DAILY metoprolol succinate 50 MG tablet extended release 24 hr 50 mg PO DAILY leflunomide 10 mg tablet 10 mg PO DAILY Patient Comments: TAKE 1 TABLET BY MOUTH ONCE DAILY gabapentin 300 mg capsule 300 mg PO DAILY Patient Comments: TAKE 1 CAPSULE BY MOUTH NIGHTLY NEEDED levothyroxine 50 MCG tablet 50 mcg PO DAILY leucovorin calcium 5 MG tablet 5 mg PO WEEKLY Referrals Follow up/Referrals: Sydnie Godwin MD [Primary Care Provider] - See instructions Activity Restrictions/Add. Instructions Additional Instructions/Restrictions: Drink plenty of fluids. Take tylenol or ibuprofen for pain or fever. Take the medications as directed. Follow up with your regular doctor. GO TO THE ER FOR ANY WORSENING SYMPTOMS Clinical Impressions Clinical Impression: Acute viral syndrome Discharge ED Provider: Rodrigo Santillan [facility] [place] General Stated complaint: body aches, headache, cough Time Seen by Provider: 07/04/23 14:40 History of Present Illness Provider Complaint: She states that for the past 2 days she has had fever, chills, low grade fever and a cough. Related Data Home Medications Medication Instructions Recorded Confirmed folic acid 1 mg tablet 1 mg PO DAILY Supplement 04/08/19 07/04/23 lisinopril 10 mg tablet 20 mg PO BID Hypertension 04/08/19 07/04/23 metoprolol succinate 50 mg 50 mg PO DAILY Hypertension 04/08/19 07/04/23 tablet,extended release 24 hr venlafaxine 150 mg 150 mg PO DAILY Depression 04/08/19 07/04/23 capsule,extended release 24 hr dextroamphetamine-amphetamine ER 40 mg PO DAILY ADHD 03/25/20 07/04/23 20 mg 24hr capsule,extend release (Adderall XR) vitamin B comp and C no.3 15 mg-10 1 cap PO DAILY Supplement 03/25/20 07/04/23 mg-50 mg-5 mg-300 mg capsule (B Complex Plus Vitamin C) leucovorin calcium 5 mg tablet 5 mg PO WEEKLY Supplement 11/23/21 07/04/23 levothyroxine 50 mcg tablet 50 mcg PO DAILY THYROID 11/23/21 07/04/23 albuterol sulfate 90 mcg/actuation 1 inh inhalation ONCE PRN . 01/01/23 07/04/23 aerosol inhaler cholecalciferol (vitamin D3) 1,250 50 mcg PO ONCE Supplement 01/01/23 07/04/23 mcg (50,000 unit) capsule infliximab 100 mg intravenous 100 mg IV Q8W . 01/01/23 01/25/23 solution (Remicade) rosuvastatin 20 mg tablet 20 mg PO DAILY Cholesterol 01/01/23 07/04/23 gabapentin 300 mg capsule 300 mg PO DAILY 07/04/23 07/04/23 leflunomide 10 mg tablet 10 mg PO DAILY 07/04/23 07/04/23 Previous Rx's Medication Instructions Recorded benzonatate 100 mg capsule 100 mg PO TIDP PRN Cough #30 caps 07/04/23 methylprednisolone 4 mg tablets in 4 mg PO DIRECTED #21 tabs 07/04/23 a dose pack ondansetron 4 mg disintegrating 4 mg PO
[2023-07-04 15:02] LABS: UTC Influenza A Antigen Negative (Negative); UTC Influenza B Antigen Negative (Negative)
[2023-07-04 15:44] VITALS: BP 130/83; PULSE 107; RESP 18; TEMP 36.7; O2SAT 99
== END 2023-07-04 15:30 | disposition home or self-care (01) ==
PROVIDERS: Emergency Provider Nurse Practitioner Family; PCP Family Medicine
DX: R51.9 Headache, unspecified (principal); R05.9 Cough, unspecified; R50.9 Fever, unspecified; R11.0 Nausea; M79.18 Myalgia, other site; B34.9 Viral infection, unspecified; F17.210 Nicotine dependence, cigarettes, uncomplicated; I10 Essential (primary) hypertension; E78.5 Hyperlipidemia, unspecified; E03.9 Hypothyroidism, unspecified; I20.9 Angina pectoris, unspecified
CPT/HCPCS: 87635; 87804; 99212; 99214; G0463

== ENCOUNTER 2023-08-09 15:07 | Emergency (ER) | payer BC, SELFPAY ==
[2023-08-09 15:25] VITALS: BP 119/82; PULSE 89; RESP 20; TEMP 36.9; O2SAT 99; BMI 27.4
--- NOTE | 2023-08-09 15:55 | EXP.UTC ---
Discharge Plan Disposition Patient Disposition: Home, Self-Care Condition: Good Prescriptions Prescriptions: New methylprednisolone [Medrol (Soham)] 4 mg tablets,dose pack See Rx Instructions .Route .COMPLEX 6 Days Qty: 21 0RF Rx Instructions: taper pack; guaifenesin [Mucinex] 600 mg tablet extended release 12hr 1,200 mg PO BID PRN (Reason: cough) Qty: 20 0RF azithromycin [Zithromax Z-Soham] 250 mg tablet See Rx Instructions .ROUTE .COMPLEX 5 Days Qty: 6 0RF Rx Instructions: For 250 mg dose pack: take 500 mg today (day 1), then 250 mg for 4 days (days 2-5) benzonatate 100 mg capsule 100 mg PO TID PRN (Reason: cough) Qty: 30 0RF ondansetron 4 mg tablet,disintegrating 4 mg PO Q8H PRN (Reason: nausea and vomiting) Qty: 10 0RF No Action dextroamphetamine-amphetamine [Adderall XR] 20 mg capsule,extended release 24hr 40 mg PO DAILY B Complex Plus Vitamin C 86-95-90-5-300 mg capsule 1 cap PO DAILY Rx Instructions: give with food (meal/snack) cholecalciferol (vitamin D3) 1,250 mcg (50,000 unit) capsule 50 mcg PO ONCE infliximab [Remicade] 100 mg recon soln 100 mg IV Q8W albuterol sulfate 90 mcg/actuation HFA aerosol inhaler 1 inh inhalation ONCE PRN (Reason: .) rosuvastatin 20 mg tablet 20 mg PO DAILY Patient Comments: TAKE 1 TABLET BY MOUTH ONCE DAILY AT BEDTIME FOR 30 DAYS venlafaxine 150 MG capsule,extended release 24hr 150 mg PO DAILY lisinopril 10 MG tablet 20 mg PO BID Patient Comments: TAKE 1 TABLET BY MOUTH ONCE DAILY folic acid 1 tablet 1 mg PO DAILY metoprolol succinate 50 MG tablet extended release 24 hr 50 mg PO DAILY leflunomide 10 mg tablet 10 mg PO DAILY Patient Comments: TAKE 1 TABLET BY MOUTH ONCE DAILY gabapentin 300 mg capsule 300 mg PO DAILY Patient Comments: TAKE 1 CAPSULE BY MOUTH NIGHTLY NEEDED benzonatate [benzonatate] 100 mg capsule 100 mg PO TIDP PRN (Reason: Cough) Qty: 30 0RF methylprednisolone 4 mg Tablets,Dose Pack 4 mg PO DIRECTED Qty: 21 0RF ondansetron 4 mg Tablet,Disintegrating 4 mg PO Q8H PRN (Reason: Nausea) Qty: 12 0RF levothyroxine 50 MCG tablet 50 mcg PO DAILY leucovorin calcium 5 MG tablet 5 mg PO WEEKLY Referrals Follow up/Referrals: Sydnie Godwin MD [Primary Care Provider] - See instructions Activity Restrictions/Add. Instructions Additional Instructions/Restrictions: Start antibiotic today. Be sure to complete entire prescription even if feeling better Monitor temp. Tylenol every 4 hours as needed and / or ibuprofen every 6 hours as needed ( As long as your primary care physician has told you that it ok to take both. For fever/aches/pains ER if no less than 101 despite Tylenol or Motrin Humidifier/vaporizer or hot steamy shower Inhaler every 4-6 hours as needed like we discussed. If unsure how to use it, ask pharmacist to demonstrate how. Should help open airways and improve cough, wheezing, and shortness of breath Mucinex during the day for your cough and cough suppressant only at night. Be sure to drink lots of water. *Tessalon Perles will not cause drowsiness but use at bedtime to help stop cough so that you may get some rest. *Start steroid today. Helps with inflammation therefore, cough and wheezing. Follow directions on the package. Reviewed side effects. Patient reports taking them before. Follow up IMMEDIATELY for new or worsening of symptoms OR no noticeable improvement over the next 48-72 hours. 911 immediately for any life threatening symptoms such as chest pain or difficulty breathing Clinical Impressions Clinical Impression: Bronchitis Stand Alone Forms Stand Alone Forms: Work/School Release Instructions Patient Instructions: DI for Sinusitis, Acute Bronchitis Discharge ED Provider: Didi Murdock [facility] General Stated complaint: WOLFE, body aches consuelo Mode of Arrival: Ambulatory Source of Information: Patient Limitations: No Limitations Time Seen by Provider: 08/09/23 15:55 Description of Symptoms (Recalled from Triage Doc. by RN): PATIENT C/O BODY ACHES, COUGH, AND CHEST CONGESTION SINCE YESTERDAY HEENT Symptoms (Recalled from RN notes): No Resp Symptoms (Recalled from RN notes): Yes Skin Symptoms (Recalled from RN notes): No MS Symptoms (Recalled from RN notes): No Functional Status (Recalled from RN notes): WNL History of Present Illness Provider Complaint: Patient states that she started feeling bad yesterday States that she has been having body aches, chills, cough, chest congestion and burning at times when she coughs States that she did have some vomiting yesterday and today she was still not feeling any better so she came in to get checked has hx bronchitis and feels like that Related Data Home Medications Medication Instructions Recorded Confirmed folic acid 1 mg tablet 1 mg PO DAILY Supplement 04/08/19 07/04/23 lisinopril 10 mg tablet 20 mg PO BID Hypertension 04/08/19 07/04/23 metoprolol succinate 50 mg 50 mg PO DAILY Hypertension 04/08/19 07/04/23 tablet,extended release 24 hr venlafaxine 150 mg 150 mg PO DAILY Depression 04/08/19 07/04/23 capsule,extended release 24 hr dextroamphetamine-amphetamine ER 40 mg PO DAILY ADHD 03/25/20 07/04/23 20 mg 24hr capsule,extend release (Adderall XR) vitamin B comp and C no.3 15 mg-10 1 cap PO DAILY Supplement 03/25/20 07/04/23 mg-50 mg-5 mg-300 mg capsule (B Complex Plus Vitamin C) leucovorin calcium 5 mg tablet 5 mg PO WEEKLY Supplement 11/23/21 07/04/23 levothyroxine 50 mcg tablet 50 mcg PO DAILY THYROID 11/23/21 07/04/23 albuterol sulfate 90 mcg/actuation 1 inh inhalation ONCE PRN . 01/01/23 07/04/23 aerosol inhaler cholecalciferol (vitamin D3) 1,250 50 mcg PO ONCE Supplement 01/01/23 07/04/23 mcg (50,000 unit) capsule infliximab 100 mg intravenous 100 mg IV Q8W . 01/01/23 01/25/23 solution (Remicade) rosuvastatin 20 mg tablet 20 mg PO DAILY Cholesterol 01/01/23 07/04/23 gabapentin 300 mg capsule 300 mg PO DAILY 07/04/23 07/04/23 leflunomide 10 mg tablet 10 mg PO DAILY 07/04/23 07/04/23 Previous Rx's Medication Instructions Recorded benzonatate 100 mg capsule 100 mg PO TIDP PRN Cough #30 caps 07/04/23 methylprednisolone 4 mg tablets in 4 mg PO DIRECTED #21 tabs 07/04/23 a dose pack ondansetron 4 mg disintegrating 4 mg PO Q8H PRN Nausea #12 tabs 07/04/23 tablet azithromycin 250 mg tablet See Rx Instructions PO .COMPLEX 5 08/09/23 (Zithromax Z-Soham) days #6 tabs benzonatate 100 mg capsule 100 mg PO TID PRN cough #30 caps 08/09/23 guaifenesin 600 mg tablet, 1,200 mg PO BID PRN cough #20 tabs 08/09/23 extended release 12 hr (Mucinex) methylprednisolone 4 mg tablets in See Rx Instructions .Route 08/09/23 a dose pack (Medrol (Soham)) .COMPLEX 6 days #21 tabs ondansetron 4 mg disintegrating 4 mg PO Q8H PRN nausea and 08/09/23 tablet vomiting #10 tabs Allergies Allergy/AdvReac Type Severity Reaction Status Date / Time cephalexin [From KEFLEX] Allergy Mild Verified 07/04/23 14:48 levofloxacin [LEVOFLOXACIN] Allergy Unknown I-RASH Verified 07/04/23 14:48 clindamycin Allergy Verified 07/04/23 14:48 Sulfa (Sulfonamide Allergy Verified 07/04/23 14:48 Antibiotics) Worker's Comp Is this a Worker's Comp case?: No [facility] Disclaimer: The information contained in this section may have been updated after the patient was seen, as this information can be updated by other users. Medical History (Updated 08/09/23 @ 16:08 by Didi Murdock APRN) Abnormal result of cardiovascular function study Angina pectoris Chest pain Dyspnea HLD (hyperlipidemia) Hypertension Hypothyroid IBS (irritable bowel syndrome) Surgical History H/O total hysterectomy History of Social History Smoking Status: Current every day smoker tobacco type: cigarettes packs per day: 1 alcohol intake: current substance use type: denies use current occupational status: employed Travel in the last 8 weeks: None household members: spouse housing: house caffeine: No ROS Obtained: Yes All systems reviewed & no additional complaints except as documented and Yes Systems reviewed as appropriate & no additional complaints except as documented ENT Ears, Nose, Mouth, and Throat: Reports system reviewed and no additional complaints, except as documented, Reports as per HPI, Reports sinus pain, Reports sinus pressure and Reports sore throat Respiratory Respiratory: Reports system reviewed and no additional complaints, except as documented, Reports as per HPI, Reports chest congestion and Reports cough Gastrointestinal Gastrointestingal: Reports system reviewed and no additional complaints, except as documented, as per HPI, nausea and vomiting Physical Exam General General appearance: alert and in no apparent distress ENT ENT exam: Present mucous membranes moist Expanded ENT Exam Nose exam: Present sinus tenderness Throat exam: Present other (Pharyngeal erythema noted with PND) Respiratory Respiratory exam: Present normal lung sounds bilaterally; Absent respiratory distress or wheezes Cardiovascular Cardiovascular exam: Present regular rate, normal rhythm and normal heart sounds Abdominal Exam Abdominal exam: Present soft and normal bowel sounds; Absent distention or tenderness Neurological Exam Neurological exam: Present alert, oriented X3 and normal gait Medical Decision Making Lito Inquiry Pt receiving controlled substance: No Lito was queried for this patient: No Vital Signs: 08/09/23 15:25 Temperature 98.5 F Temperature Source Oral Pulse Rate [Left Brachial] 89 Respiratory Rate 20 Blood Pressure [Left Arm] 119/82 Blood Pressure Mean [Left Arm] 94 Blood Pressure Source [Left Arm] Automatic Cuff Blood Pressure Position [Left Arm] Sitting 02 Sat by Pulse Oximetry 99 Oxygen Delivery Method Room Air Lab Data Lab results reviewed: Yes I reviewed the patient's lab results. Medical Decision Narrative: Patient states that she has taken medrol, azithromycin and zofran in the past without any complications or reactions
[2023-08-09 16:02] LABS: UTC Influenza A Antigen Negative (Negative)
[2023-08-09 16:03] LABS: UTC Influenza B Antigen Negative (Negative)
[2023-08-09 16:10] VITALS: BP 119/82; PULSE 89; RESP 20; TEMP 36.9; O2SAT 99
[2023-08-09 16:21] LABS: Adenovirus,PCR Not Detected (NotDetected); Coronavirus 19, PCR Not Detected (NotDetected); Coronavirus 229E Not Detected (NotDetected); Coronavirus NL63 Not Detected (NotDetected); Coronavirus OC43 Not Detected (NotDetected); Coronovirus HKU1,PCR Not Detected (NotDetected); Human Metapneumovirus Not Detected (NotDetected); Influenza A, PCR Not Detected (NotDetected); Influenza AH1, PCR Not Detected (NotDetected); Influenza AH3,PCR Not Detected (NotDetected); Influenza B, PCR Not Detected (NotDetected); Parainfluenza 1, PCR Not Detected (NotDetected); Parainfluenza 2, PCR Not Detected (NotDetected); Parainfluenza 3, PCR Not Detected (NotDetected); Parainfluenza 4, PCR Not Detected (NotDetected); Respiratory Syncytial Virus Not Detected (NotDetected); Rhinovirus/Enterovirus Not Detected (NotDetected)
[2023-08-10 09:07] LABS: Influenza AH1, 2009 Detected (NotDetected)
--- NOTE | 2023-08-10 09:13 | PC.NURSE ---
Attempted to call pt about full panel results.
== END 2023-08-09 16:16 | disposition home or self-care (01) ==
PROVIDERS: Emergency Provider Nurse Practitioner; PCP Family Medicine
DX: J40 Bronchitis, not specified as acute or chronic (principal); R51.9 Headache, unspecified; R05.9 Cough, unspecified; R11.10 Vomiting, unspecified; I20.9 Angina pectoris, unspecified; E78.5 Hyperlipidemia, unspecified; I10 Essential (primary) hypertension; E03.9 Hypothyroidism, unspecified; F17.210 Nicotine dependence, cigarettes, uncomplicated
CPT/HCPCS: 87581; 87632; 87635; 87798; 87804; 99212; 99214; G0463

== ENCOUNTER 2024-01-15 12:24 | Observation (INO) | payer BC, SELFPAY ==
[2024-01-15] VITALS (9 sets, daily range): BP systolic 90–124; BP diastolic 50–79; PULSE 74–113; RESP 18; TEMP 36.6–37.2; O2SAT 93–98; BMI 26.3; BMI 26.0
--- NOTE | 2024-01-15 12:33 | ECG_ITS ---
APPROVED REPORT Exam: Resting ECG HR:107 bpm ECG Measurements Heart Rate 107 AXES LA 124 P 66 QRSd 86 QRS 80 QT 340 T 69 QTc 403 Conclusion SINUS TACHYCARDIA ABNORMAL RHYTHM ECG UNCONFIRMED REPORT Electronically signed by : FLO GORDON, 01/15/2024 16:09:17
--- NOTE | 2024-01-15 12:40 | HMH.EDGENADL ---
Discharge Plan Disposition Patient Disposition: Admitted Condition: Fair Prescriptions Prescriptions: No Action dextroamphetamine-amphetamine [Adderall XR] 20 mg capsule,extended release 24hr 40 mg PO DAILY B Complex Plus Vitamin C 41-31-77-5-300 mg capsule 1 cap PO DAILY Rx Instructions: give with food (meal/snack) cholecalciferol (vitamin D3) 1,250 mcg (50,000 unit) capsule 50 mcg PO ONCE infliximab [Remicade] 100 mg recon soln 100 mg IV Q8W albuterol sulfate 90 mcg/actuation HFA aerosol inhaler 1 inh inhalation ONCE PRN (Reason: .) rosuvastatin 20 mg tablet 20 mg PO DAILY Patient Comments: TAKE 1 TABLET BY MOUTH ONCE DAILY AT BEDTIME FOR 30 DAYS venlafaxine 150 MG capsule,extended release 24hr 150 mg PO DAILY lisinopril 10 MG tablet 20 mg PO BID Patient Comments: TAKE 1 TABLET BY MOUTH ONCE DAILY folic acid 1 tablet 1 mg PO DAILY metoprolol succinate 50 MG tablet extended release 24 hr 50 mg PO DAILY leflunomide 10 mg tablet 10 mg PO DAILY Patient Comments: TAKE 1 TABLET BY MOUTH ONCE DAILY gabapentin 300 mg capsule 300 mg PO DAILY Patient Comments: TAKE 1 CAPSULE BY MOUTH NIGHTLY NEEDED benzonatate [benzonatate] 100 mg capsule 100 mg PO TIDP PRN (Reason: Cough) Qty: 30 0RF methylprednisolone 4 mg Tablets,Dose Pack 4 mg PO DIRECTED Qty: 21 0RF ondansetron 4 mg Tablet,Disintegrating 4 mg PO Q8H PRN (Reason: Nausea) Qty: 12 0RF methylprednisolone [Medrol (Soham)] 4 mg tablets,dose pack See Rx Instructions .Route .COMPLEX 6 Days Qty: 21 0RF Rx Instructions: taper pack; guaifenesin [Mucinex] 600 mg tablet extended release 12hr 1,200 mg PO BID PRN (Reason: cough) Qty: 20 0RF azithromycin [Zithromax Z-Soham] 250 mg tablet See Rx Instructions .ROUTE .COMPLEX 5 Days Qty: 6 0RF Rx Instructions: For 250 mg dose pack: take 500 mg today (day 1), then 250 mg for 4 days (days 2-5) benzonatate 100 mg capsule 100 mg PO TID PRN (Reason: cough) Qty: 30 0RF ondansetron 4 mg tablet,disintegrating 4 mg PO Q8H PRN (Reason: nausea and vomiting) Qty: 10 0RF oseltamivir [Tamiflu] 75 mg capsule 75 mg PO BID Qty: 10 0RF levothyroxine 50 MCG tablet 50 mcg PO DAILY leucovorin calcium 5 MG tablet 5 mg PO WEEKLY Referrals Follow up/Referrals: Sydnie Godwin MD [Primary Care Provider] - See instructions Clinical Impressions Clinical Impression: Swelling of right side of face, Cellulitis of face Discharge ED Provider: Randall Callaway General Adult HPI General Chief complaint: Dizziness Stated complaint: swollen jaw, light headed Time Seen by Provider: 01/15/24 12:34 History of Present Illness HPI narrative: 53-year-old female with past medical history significant for HTN, HLD, colitis, psoriatic arthritis, presents today for evaluation concerning right-sided facial swelling and pain worsening over the past day. She reports subjective fevers and chills and notes some difficulty with swallowing. She also reports palpitations, shortness of breath and lightheadedness over the same time period. Denies any chest pain, nausea, vomiting, abdominal pain. No further complaints Related Data Home Medications Medication Instructions Recorded Confirmed folic acid 1 mg tablet 1 mg PO DAILY Supplement 04/08/19 07/04/23 lisinopril 10 mg tablet 20 mg PO BID Hypertension 04/08/19 07/04/23 metoprolol succinate 50 mg 50 mg PO DAILY Hypertension 04/08/19 07/04/23 tablet,extended release 24 hr venlafaxine 150 mg 150 mg PO DAILY Depression 04/08/19 07/04/23 capsule,extended release 24 hr dextroamphetamine-amphetamine ER 40 mg PO DAILY ADHD 03/25/20 07/04/23 20 mg 24hr capsule,extend release (Adderall XR) vitamin B comp and C no.3 15 mg-10 1 cap PO DAILY Supplement 03/25/20 07/04/23 mg-50 mg-5 mg-300 mg capsule (B Complex Plus Vitamin C) leucovorin calcium 5 mg tablet 5 mg PO WEEKLY Supplement 11/23/21 07/04/23 levothyroxine 50 mcg tablet 50 mcg PO DAILY THYROID 11/23/21 07/04/23 albuterol sulfate 90 mcg/actuation 1 inh inhalation ONCE PRN . 01/01/23 07/04/23 aerosol inhaler cholecalciferol (vitamin D3) 1,250 50 mcg PO ONCE Supplement 01/01/23 07/04/23 mcg (50,000 unit) capsule infliximab 100 mg intravenous 100 mg IV Q8W . 01/01/23 01/25/23 solution (Remicade) rosuvastatin 20 mg tablet 20 mg PO DAILY Cholesterol 01/01/23 07/04/23 gabapentin 300 mg capsule 300 mg PO DAILY 07/04/23 07/04/23 leflunomide 10 mg tablet 10 mg PO DAILY 07/04/23 07/04/23 Previous Rx's Medication Instructions Recorded benzonatate 100 mg capsule 100 mg PO TIDP PRN Cough #30 caps 07/04/23 methylprednisolone 4 mg tablets in 4 mg PO DIRECTED #21 tabs 07/04/23 a dose pack ondansetron 4 mg disintegrating 4 mg PO Q8H PRN Nausea #12 tabs 07/04/23 tablet azithromycin 250 mg tablet See Rx Instructions PO .COMPLEX 5 08/09/23 (Zithromax Z-Soham) days #6 tabs benzonatate 100 mg capsule 100 mg PO TID PRN cough #30 caps 08/09/23 guaifenesin 600 mg tablet, 1,200 mg (2 x 600 mg) PO BID PRN 08/09/23 extended release 12 hr (Mucinex) cough #20 tabs methylprednisolone 4 mg tablets in See Rx Instructions .Route 08/09/23 a dose pack (Medrol (Soham)) .COMPLEX 6 days #21 tabs ondansetron 4 mg disintegrating 4 mg PO Q8H PRN nausea and 08/09/23 tablet vomiting #10 tabs oseltamivir 75 mg capsule (Tamiflu) 75 mg PO BID #10 caps 08/10/23 Allergies Allergy/AdvReac Type Severity Reaction Status Date / Time cephalexin [From KEFLEX] Allergy Mild Verified 01/15/24 12:51 levofloxacin [LEVOFLOXACIN] Allergy Unknown I-RASH Verified 01/15/24 12:51 clindamycin Allergy Verified 01/15/24 12:51 Sulfa (Sulfonamide Allergy Verified 01/15/24 12:51 Antibiotics) [facility] Disclaimer: The information contained in this section may have been updated after the patient was seen, as this information can be updated by other users. Medical History (Updated 01/15/24 @ 15:48 by Randall Callaway DO) Angina pectoris HLD (hyperlipidemia) Dyspnea Chest pain Abnormal result of cardiovascular function study IBS (irritable bowel syndrome) Hypothyroid Hypertension Surgical History History of H/O total hysterectomy Social History Smoking Status: Current every day smoker tobacco type: cigarettes packs per day: 1 alcohol intake: current alcohol intake frequency: holidays/special occasions only substance use type: denies use current occupational status: employed Travel in the last 8 weeks: None household members: spouse housing: house caffeine: No ROS Obtained: Yes All systems reviewed & no additional complaints except as documented Physical Exam General General appearance: alert and in no apparent distress Head Head exam: atraumatic and normocephalic Eye Eye exam: Present normal appearance, PERRL and EOMI ENT ENT exam: Present normal oropharynx, mucous membranes moist and other (Left-sided facial swelling and tenderness. Swelling extends underneath chin which is mildly indurated. No significant erythema. No trismus. Floor the mouth is soft underneath the tongue. No dental tenderness or palpable abscesses.) Neck Neck exam: Present full ROM; Absent meningismus Respiratory Respiratory exam: Absent respiratory distress, wheezes, stridor or accessory muscle use Cardiovascular Cardiovascular exam: Present normal rhythm and tachycardia Abdominal Exam Abdominal exam: Present soft; Absent distention, tenderness, guarding, rebound or rigidity Neurological Exam Neurological exam: Present alert, oriented X3 and CN II-XII intact; Absent motor sensory deficit Psychiatric Psychiatric exam: Present normal affect and normal mood Skin Skin exam: Present warm and dry Medical Decision Making Medical Records Medical records reviewed: Yes I reviewed the patient's medical records. Lito Inquiry Pt receiving controlled substance: No Lito was queried for this patient: No Vital Signs: 01/15/24 12:45 01/15/24 13:00 01/15/24 13:30 Temperature 97.8 F Temperature Source Oral Pulse Rate 106 H 101 H Pulse Rate [Left] 113 H Respiratory Rate 18 Blood Pressure 98/62 L Blood Pressure [Right Arm] 124/79 Blood Pressure Mean 74 Blood Pressure Mean [Right Arm] 94 Blood Pressure Source [Right Arm] Automatic Cuff Blood Pressure Position [Right Arm] Sitting 02 Sat by Pulse Oximetry 96 96 98 Oxygen Delivery Method Room Air Room Air 01/15/24 14:00 01/15/24 14:30 01/15/24 15:30 Temperature Temperature Source Pulse Rate 82 88 85 Pulse Rate [Left] Respiratory Rate Blood Pressure 101/55 L 105/61 L 102/70 L Blood Pressure [Right Arm] Blood Pressure Mean 80 75 80 Blood Pressure Mean [Right Arm] Blood Pressure Source [Right Arm] Blood Pressure Position [Right Arm] 02 Sat by Pulse Oximetry 96 95 96 Oxygen Delivery Method Room Air Lab Data Lab Results 01/15/24 12:43: WBC 11.2 H, RBC 4.38, Hgb 14.2, Hct 40.0, MCV 91.5, MCH 32.4 H, MCHC 35.4, RDW 13.4, Plt Count 262, MPV 9.0, Neut % (Auto) 75.2, Lymph % (Auto) 16.5, Edmunds % (Auto) 3.2, Eos % (Auto) 4.5, Baso % (Auto) 0.7, Neut # (Auto) 8.4 H, Lymph # (Auto) 1.9, Edmunds # (Auto) 0.4, Eos # (Auto) 0.5 H, Baso # (Auto) 0.1, ESR 14, Sodium 138, Potassium 3.7, Chloride 109 H, Carbon Dioxide 22, Anion Gap 10.7, BUN 11, Creatinine 0.90, Estimated Creat Clear 88, Estimated GFR 66, Est GFR ( Amer) 80, Glucose 182 H, Calcium 9.6, Total Bilirubin 0.8, AST 35, ALT 36, Alkaline Phosphatase 83, Troponin I < 0.01, C-Reactive Protein 31.5 H, Total Protein 7.4, Albumin 4.2, Globulin 3.2, Albumin/Globulin Ratio 1.3 01/15/24 12:43 01/15/24 12:43 Orders (Tests/Meds): ED MEDICATIONS Generic Name Dose Route Start Last Admin Trade Name Freq PRN Reason Stop Dose Admin Piperacillin Sod/Tazobactam 50 mls @ 100 mls/hr 01/15/24 15:56 01/15/24 16:02 Sod 3.375 gm/ Sodium Chloride IV 01/15/24 16:25 100 mls/hr ONCE ONE Administration Vancomycin/PEG/NADA/Lysine/Water 1.5 gm in 300 mls @ 150 mls/hr 01/15/24 16:00 Vancomycin 1.5gm/300ml (Peg) Premix IV 01/15/24 17:59 ONCE ONE Discontinued Medications Generic Name Dose Route Start Last Admin Trade Name Len PRN Reason Stop Dose Admin Lactated Ringer's 500 mls @ 999 mls/hr 01/15/24 12:54 01/15/24 12:59 Lactated Ringer's 1000 Ml Bag IV 01/15/24 13:24 999 mls/hr .Q31M ONE Administration Piperacillin Sod/Tazobactam 50 mls @ 100 mls/hr 01/15/24 15:45 Sod 3.375 gm/ Sodium Chloride IV 01/25/24 15:44 Q8H GOLDY Iopamidol 75 ml 01/15/24 13:42 01/15/24 13:45 Iopamidol-370 (76%);100ml Bottle IV 01/15/24 13:43 75 ml ONCE ONE Administration Ketorolac Tromethamine 15 mg 01/15/24 13:49 01/15/24 14:00 Ketorolac 30mg/Ml Vial IV 01/15/24 13:50 15 mg ONCE ONE Administration Miscellaneous 1 each 01/15/24 15:45 Vancomycin Consult Request NOTAPPLIC 02/14/24 15:44 CONSULT PHARMACY [facility] Morphine Sulfate 4 mg 01/15/24 12:54 01/15/24 12:58 Morphine 4mg/Ml Syringe IV 01/15/24 12:55 4 mg ONCE ONE Administration Ondansetron HCl 4 mg 01/15/24 12:54 01/15/24 12:59 Ondansetron 4mg/2ml Vial IV 01/15/24 12:55 4 mg ONCE ONE Administration Sodium Chloride 10 ml 01/15/24 13:42 01/15/24 13:45 Sodium Chloride 0.9% 10ml Syr (Rad Only) IV 01/15/24 13:43 10 ml ONCE ONE Administration ORDERS Category Date Time Status CT soft tissue neck w con Stat Cat Scan 01/15/24 12:54 Completed CXR --portable [XR chest portable] Stat Exams 01/15/24 12:54 Completed CBC w/Auto Diff [Complete Blood Count Auto Diff] Stat Lab 01/15/24 12:43 Completed CMP [Comprehensive Metabolic Panel] Stat Lab 01/15/24 12:43 Completed CRP [C-Reactive Protein] Stat Lab 01/15/24 12:43 Completed ESR [Erythrocyte Sedimentation Rate] Stat Lab 01/15/24 12:43 Completed Trop I [Troponin I] Stat Lab 01/15/24 12:43 Completed Troponin I Q3H Lab 01/15/24 16:00 Ordered Troponin I Q3H Lab 01/15/24 19:00 Ordered Medical Decision Narrative: 53-year-old female with past medical history significant for HTN, HLD, colitis, psoriatic arthritis, presents today for evaluation concerning right-sided facial swelling and pain worsening over the past day. She reports subjective fevers and chills and notes some difficulty with swallowing. She also reports palpitations, shortness of breath and lightheadedness over the same time period. On assessment she was stable and in no acute distress. Mildly tachycardic. Chest clear to auscultation bilaterally. Abdomen soft nondistended and nontender. Left-sided facial swelling and tenderness. Swelling extends underneath chin which is mildly indurated. No significant erythema. No trismus. Floor the mouth is soft underneath the tongue. No dental tenderness or palpable abscesses. Differential diagnoses include not limited to [place] angina, cellulitis, dental infection, ACS, among others. EKG was ordered today and on my personal interpretation it was remarkable for sinus tachycardia with a rate of 107 bpm. No ischemic changes. WBC elevated at 11.2. ESR 14. CRP 31.5. Initial troponin less than 0.01. Chest x-ray with no acute cardiopulmonary disease processes on my informal interpretation. Radiology report confirmed. CT soft tissue neck remarkable for bilateral facial soft tissue cellulitis at the level of the mandible, more prominent on the right. She did have cortical disruption of the lateral left mandible. On reassessment she remains medically stable and in no acute distress. She has continued to tolerate her secretions appropriately. She is also tolerating oral intake. I discussed ED workup and results as well as current plan to admit for IV antibiotics to treat her significant cellulitis. She verbalized understanding and agreed with plan. I did consult with Dr. Godwin and discussed management and he has agreed to admit and evaluate. Patient remains clinically stable and in no acute distress at this time. Critical Care Critical Care Time Critical Care Time: No
--- NOTE | 2024-01-15 12:54 | CT_ITS ---
FINAL REPORT TECHNIQUE: Thin section axial CT images were obtained through the neck after intravenous contrast administration. Coronal and sagittal reformats were also obtained. This study was performed with techniques to keep radiation doses as low as reasonably achievable (ALARA). Individualized dose reduction techniques using automated exposure control or adjustment of mA and/or kV according to the patient''s size were employed. CLINICAL HISTORY: L sided facial swelling COMPARISON: None FINDINGS: The nasopharynx, oropharynx, hypopharynx and larynx are unremarkable. There is bilateral facial soft tissue edema/cellulitis at the level of the mandible, more prominent on the right side than the left side. The adjacent parotid and submandibular glands appear unremarkable. There are lucencies surrounding the roots of several bilateral mandibular premolars. There is cortical disruption of the lateral left mandible. There are no soft tissue fluid collections to suggest an abscess. There are multiple enlarged cervical nodes, likely reactive. The thyroid gland is unremarkable. The visualized sinuses are clear. There is no acute osseous abnormality. IMPRESSION: Bilateral facial soft tissue edema/cellulitis at the level of the mandible, more prominent on the right side than the left side. The adjacent parotid and submandibular glands appear unremarkable. Lucencies surrounding the roots of several mandibular premolars, with cortical disruption of the lateral left mandible. Cervical adenopathy, likely reactive. Reviewed, Interpreted and Dictated by Dakotah Terrell III, MD Transcribed by Jennifer Rodriguez Authenticated and [facility]
--- NOTE | 2024-01-15 12:54 | XR_ITS ---
FINAL REPORT CLINICAL HISTORY: SOB COMPARISON: None FINDINGS: A single portable view of the chest was obtained. The heart size and pulmonary vascularity are within normal limits. The mediastinum is within normal limits. No acute pulmonary abnormality is identified. The bony thorax is intact. IMPRESSION: No active cardiopulmonary disease. Reviewed, Interpreted and Dictated by Dakotah Terrell III, MD Transcribed by Jennifer Rodriguez Authenticated and [facility]
[2024-01-15] MEDS: MORPHINE 4MG/ML SYRINGE 4 MG IV (12:58)
[2024-01-15] MEDS: LACTATED RINGERS 1000ML 500 ML 999 ML IV (12:59)
[2024-01-15] MEDS: ONDANSETRON 4MG/2ML VIAL 4 MG IV (12:59)
[2024-01-15 13:04] LABS: Basophils # 0.1 K/mm3 (0-0.2); Basophils % 0.7 % (0.1-2.0); Eosinophils # 0.5 K/mm3 (0.0-0.4); Eosinophils % 4.5 % (0.1-12.0); Hemoglobin 14.2 g/dL (12.2-16.2); Lymphocytes # 1.9 K/mm3 (0.7-4.5); Lymphocytes % 16.5 % (10-50); Mean Corpuscular HGB Conc 35.4 g/dL (31.8-35.4); Mean Corpuscular Hemoglobin 32.4 pg (27.0-31.2); Mean Corpuscular Volume 91.5 fl (81-99); Monocytes # 0.4 K/mm3 (0.1-1.0); Monocytes % 3.2 % (1.7-9.3); Neutrophils # 8.4 K/mm3 (1.8-7.8); Neutrophils % 75.2 % (37.0-80.0); Platelet Count 262 K/mm3 (142-424); Red Blood Count 4.38 M/mm3 (4.20-5.40); Red Cell Distribution Width 13.4 % (11.5-17.5); White Blood Count 11.2 K/mm3 (4.8-10.8)
[2024-01-15 13:24] LABS: Chloride 109 mmol/L (98-107)
[2024-01-15 13:25] LABS: Potassium 3.7 mmoL/L (3.5-5.1); Sodium 138 mmol/L (136-145)
[2024-01-15 13:27] LABS: Alanine Aminotransferase 36 U/L (12-78); Alkaline Phosphatase 83 U/L (38-126); Anion Gap 10.7 mEq/L (5-15); Aspartate Amino Transferase 35 U/L (14-36); Bilirubin,Total 0.8 mg/dl (0.2-1.3); Blood Urea Nitrogen 11 mg/dl (7-17); Carbon Dioxide 22 mmol/L (22.0-30.0); Creatinine Clearance Estimated 88 mL/min (50-200); Estimated Glomerular Filt Rate 66 ml/min (>60); GFR (African American) 80 ML/MIN (>60)
[2024-01-15 13:28] LABS: Albumin Level 4.2 g/dl (3.5-5.0); Albumin/Globulin Ratio 1.3 (1.1-1.8); Calcium 9.6 mg/dl (8.4-10.2); Globulin 3.2 g/dL (1.3-3.2); Glucose 182 mg/dl (74-100); Total Protein,Serum 7.4 g/dl (6.3-8.2)
[2024-01-15 13:33] LABS: C-Reactive Protein 31.5 mg/L (0-4)
[2024-01-15 13:44] LABS: Troponin I < 0.01 ng/ml (0.00-0.034)
[2024-01-15] MEDS: SODIUM CHLORIDE 0.9% 10ML SYR (RAD ONLY) 10 ML IV (13:45)
[2024-01-15] MEDS: IOPAMIDOL-370 (76%);100ML BOTTLE 75 ML IV (13:45)
[2024-01-15] MEDS: KETOROLAC 30MG/ML VIAL 15 MG IV (14:00)
[2024-01-15 14:56] LABS: Erythrocyte Sedimentation Rate 14 mm/hr (0-30)
--- NOTE | 2024-01-15 15:53 | PC.NURSE ---
I spoke with Dr. Callaway, he states we do not need to do blood cultures and is not ordering them.
--- NOTE | 2024-01-15 15:58 | PC.NURSE ---
called Dr Godwin per Dr Callaway to speak with him about this pt. Dr Callaway is speaking with him at this time.
[2024-01-15] MEDS: PIPERACILLIN/TAZO 3.375 GM in 0.9 % SODIUM CHLORIDE 50 ML IV (16:02)
--- NOTE | 2024-01-15 16:03 | PC.NURSE ---
I spoke with HS to request a bed for admission.
--- NOTE | 2024-01-15 16:33 | PC.NURSE ---
Report called to Nusrat CARRENO
--- NOTE | 2024-01-15 16:50 | P.HP_ITS ---
History of Present Illness *Admission Date: 01/15/24 *Reason for visit:: cellulitis *History of present illness: Patient is a 53-year-old female with a history of hyperlipidemia, psoriasis with arthritis, attention deficit disorder, hypothyroidism, hypertension, tobacco use disorder and irritable bowel syndrome, who presented to [facility] emergency room for evaluation for swelling in her face. The edema started yesterday and gradually progressed to where her lower lip was visible. It was worse during the night and she was experience some rapid heartbeat and thus she presented to urgent treatment center and then to the ER. She has had no difficulty with swallowing or breathing. She states she may have had a fever. She has had no stomach issues. She has had no upper respiratory signs or symptoms except for drainage due to allergies. The following is documentation from ER visit: Medical Decision Narrative: 53-year-old female with past medical history significant for HTN, HLD, colitis, psoriatic arthritis, presents today for evaluation concerning right-sided facial swelling and pain worsening over the past day. She reports subjective fevers and chills and notes some difficulty with swallowing. She also reports palpitations, shortness of breath and lightheadedness over the same time period. On assessment she was stable and in no acute distress. Mildly tachycardic. Chest clear to auscultation bilaterally. Abdomen soft nondistended and nonte nder. Left-sided facial swelling and tenderness. Swelling extends underneath chin which is mildly indurated. No significant erythema. No trismus. Floor the mouth is soft underneath the tongue. No dental tenderness or palpable abscesses. Differential diagnoses include not limited to [place] angina, cellulitis, dental infection, ACS, among others. EKG was ordered today and on my personal interpretation it was remarkable for sinus tachycardia with a rate of 107 bpm. No ischemic changes. WBC elevated at 11.2. ESR 14. CRP 31.5. Initial troponin less than 0.01. Chest x-ray with no acute cardiopulmonary disease processes on my informal interpretation. Radiology report confirmed. CT soft tissue neck remarkable for bilateral facial soft tissue cellulitis at the level of the mandible, more prominent on the right. She did have cortical disruption of the lateral left mandible. On reassessment she remains medically stable and in no acute distress. She has continued to tolerate her secretions appropriately. She is also tolerating oral intake. I discussed ED workup and results as well as current plan to admit for IV antibiotics to treat her significant cellulitis. She verbalized understanding and agreed with plan. I did consult with Dr. Godwin and discussed management and he has agreed to admit and evaluate. Patient remains clinically stable and in no acute distress at this time. The above as per ER physician. She did receive piperacillin and vancomycin along with 500 mL of IV fluids while in the emergency room. She was given ketorolac for pain as well as morphine. And also Zofran. [facility] Disclaimer: The information contained in this section may have been updated after the patient was seen, as this information can be updated by other users. Medical History (Updated 01/15/24 @ 17:31 by Cherelle Andrews APRN) Psoriasis Tobacco use disorder ADD (attention deficit disorder) Angina pectoris HLD (hyperlipidemia) Dyspnea Chest pain Abnormal result of cardiovascular function study IBS (irritable bowel syndrome) Hypothyroid Hypertension Surgical History (Updated 01/15/24 @ 17:00 by Cherelle Andrews APRN) Hx of breast reduction, elective History of surgical removal of ganglion cyst History of hysteroscopy H/O right knee surgery History of H/O total hysterectomy Social History Smoking Status: Current every day smoker tobacco type: cigarettes packs per day: 1 alcohol intake: current alcohol intake frequency: holidays/special occasions only substance use type: denies use current occupational status: employed Travel in the last 8 weeks: None household members: spouse housing: house caffeine: No Review of Systems Constitutional Constitutional: Reports fever(s) and Denies headache(s) Eyes Eyes: Denies change in vision ENT Ears, Nose, Mouth, and Throat: Reports dental pain (Is a lower case tooth fracture), Denies disequilibrium, Denies dysphagia, Reports otalgia, Reports facial pain, Denies headache(s), Reports mouth pain, Denies nasal congestion, Denies nasal discharge, Reports neck pain and Reports post nasal drip *Cardiovascular Cardiovascular: Denies chest pain, Denies dyspnea and Reports palpitations *Respiratory Respiratory: Denies chest congestion, Denies cough and Denies dyspnea *Gastrointestinal Gastrointestinal: Denies change in stool character, Denies dysphagia, Denies heartburn, Denies hematemesis, Denies nausea and Denies vomiting *Genitourinary Genitourinary: Denies difficulty voiding *Musculoskeletal Musculoskeletal: Denies abnormal gait, Reports arthralgias (Right knee) and Reports neck pain *Neurologic Neurologic: Denies abnormal gait, Denies disequilibrium and Denies headache(s) Endocrine Endocrine: Reports palpitations Meds Home Medications and Allergies Home Medications Medication Instructions Recorded Confirmed Type lisinopril 10 mg tablet 20 mg PO BID Hypertension 04/08/19 01/15/24 History metoprolol succinate 50 mg 50 mg PO DAILY Hypertension 04/08/19 01/15/24 History tablet,extended release 24 hr venlafaxine 150 mg 150 mg PO DAILY Depression 04/08/19 01/15/24 History capsule,extended release 24 hr dextroamphetamine-amphetamine ER 40 mg PO DAILY ADHD 03/25/20 01/15/24 History 20 mg 24hr capsule,extend release (Adderall XR) vitamin B comp and C no.3 15 mg-10 1 cap PO DAILY Supplement 03/25/20 01/15/24 History mg-50 mg-5 mg-300 mg capsule (B Complex Plus Vitamin C) levothyroxine 50 mcg tablet 50 mcg PO DAILY THYROID 11/23/21 01/15/24 History cholecalciferol (vitamin D3) 1,250 50 mcg PO ONCE Supplement 01/01/23 01/15/24 History mcg (50,000 unit) capsule infliximab 100 mg intravenous 100 mg IV Q8W . 01/01/23 01/15/24 History solution (Remicade) rosuvastatin 20 mg tablet 20 mg PO DAILY Cholesterol 01/01/23 01/15/24 History leflunomide 10 mg tablet 10 mg PO DAILY 07/04/23 01/15/24 History dextroamphetamine-amphetamine 10 10 mg PO DAILY 01/15/24 01/15/24 History mg tablet New Prescriptions to Start Prescriptions: Allergies Allergy/AdvReac Type Severity Reaction Status Date / Time cephalexin [From KEFLEX] Allergy Mild Verified 01/15/24 12:51 levofloxacin [LEVOFLOXACIN] Allergy Unknown I-RASH Verified 01/15/24 12:51 clindamycin Allergy Verified 01/15/24 12:51 Sulfa (Sulfonamide Allergy Verified 01/15/24 12:51 Antibiotics) Exam Data for Last 24 hours Vital signs and Labs for Last 24 Hours: Temp Pulse Resp BP Pulse Ox O2 Del Method 97.8 F 85 18 102/70 L 96 Room Air 01/15/24 12:45 01/15/24 15:30 01/15/24 12:45 01/15/24 15:30 01/15/24 15:30 01/15/24 15:30 Laboratory Results - last 24 hr 01/15/24 12:43: WBC 11.2 H, RBC 4.38, Hgb 14.2, Hct 40.0, MCV 91.5, MCH 32.4 H, MCHC 35.4, RDW 13.4, Plt Count 262, MPV 9.0, Neut % (Auto) 75.2, Lymph % (Auto) 16.5, [place] % (Auto) 3.2, Eos % (Auto) 4.5, Baso % (Auto) 0.7, Neut # (Auto) 8.4 H, Lymph # (Auto) 1.9, [place] # (Auto) 0.4, Eos # (Auto) 0.5 H, Baso # (Auto) 0.1, ESR 14, Sodium 138, Potassium 3.7, Chloride 109 H, Carbon Dioxide 22, Anion Gap 10.7, BUN 11, Creatinine 0.90, Estimated Creat Clear 88, Estimated GFR 66, Est GFR ( Amer) 80, Glucose 182 H, Calcium 9.6, Total Bilirubin 0.8, AST 35, ALT 36, Alkaline Phosphatase 83, Troponin I < 0.01, C-Reactive Protein 31.5 H, Total Protein 7.4, Albumin 4.2, Globulin 3.2, Albumin/Globulin Ratio 1.3 I & O for Last 24 hours: Intake & Output 01/13/24 01/14/24 01/15/24 01/16/24 11:59 11:59 11:59 11:59 Weight 168 lb Constitutional Constitutional: no acute distress Comments: Sitting up in the bed and appears comfortable *Routine HEENT Exam Head: Present normocephalic, atraumatic and facial swelling (Left cheek and neck) Eye: Present PERRL; Absent conjunctival icterus, scleral injection or conjunctivae pink ENT: Present mucous membranes moist and oropharynx clear; Absent dentition normal *Routine Neck Exam Neck: Present lymphadenopathy (Right neck and submandibular); Absent carotid bruit or thyromegaly *Routine Respiratory Exam Respiratory: Present CTA bilaterally (Anteriorly and posteriorly) *Routine Cardiovascular Exam Cardiovascular: Present RRR *Routine Abdominal Exam Abdominal: Present soft and normoactive bowel sounds; Absent tenderness or distended *Routine Rectal Exam Rectal:: deferred *Routine Genitalia Exam Genitalia:: deferred *Routine Extremities Exam Extremities: Present pulses intact; Absent edema or calf tenderness *Routine Neurological Exam Neurological: Present alert and oriented X3 Assessment and Plan *Assessment and plan (1) Cellulitis of face: Status: Acute Category: Medical Code(s): L03.211 - Cellulitis of face (2) Swelling of right side of face: Status: Acute Category: Medical Code(s): R22.0 - Localized swelling, mass and lump, head (3) Hypertension: Status: Acute Qualifiers: Hypertension type: primary hypertension Qualified Code(s): I10 - Essential (primary) hypertension Category: Medical Code(s): I10 - Essential (primary) hypertension (4) Tachycardia: Status: Acute Category: Medical Code(s): R00.0 - Tachycardia, unspecified Plan Continue with current IV antibiotics as ordered. Some of home meds ordered.
[2024-01-15] MEDS: VANCOMYCIN CONSULT REQUEST 1 EACH NOTAPPLIC (17:17)
[2024-01-15 17:33] LABS: Troponin I < 0.01 ng/ml (0.00-0.034)
[2024-01-15] MEDS: VANCOMYCIN/WATER FOR INJ (PEG) 1.5 GM/300 ML PIGGYBACK IV (18:07)
[2024-01-15] MEDS: NICOTINE 21MG/24HR PATCH 21 MG TD (18:39)
[2024-01-15 19:54] LABS: Troponin I < 0.01 ng/ml (0.00-0.034)
[2024-01-15] MEDS: MELATONIN 5MG TABLET 20 MG PO (20:09)
[2024-01-15] MEDS: diphenhydrAMINE 25MG CAPSULE 25 MG PO (20:09)
[2024-01-15] MEDS: ACETAMINOPHEN/CODEINE #3 TAB PO (22:26)
[2024-01-16] VITALS: BP 110/63; PULSE 74; PULSE 87; RESP 18; TEMP 36.9; O2SAT 93
[2024-01-16 04:00] VITALS: BP 98/58; PULSE 69; PULSE 74; RESP 18; TEMP 36.9; O2SAT 94; BMI 25.5
[2024-01-16] MEDS: ACETAMINOPHEN/CODEINE #3 TAB PO (04:26)
[2024-01-16 08:00] VITALS: BP 104/64; PULSE 70; PULSE 78; RESP 16; TEMP 36.6
--- NOTE | 2024-01-16 08:08 | HMH.PHAINT1 ---
Pharmacy Intervention Comments: HOME MEDICATION LIST VERIFIED USING LIST FROM OUTPATIENT PHARMACY AND PT INTERVIEW
--- NOTE | 2024-01-16 08:25 | EXP.ACUTE.PN ---
Subjective *Date: 01/16/24 *Time: 09:53 Interval history: Patient is feeling a little better today. She still has pain and swelling in the right side of her face but feels it has improved from yesterday. She slept off and on throughout the night and has had difficulty eating due to the pain. Medical Exam Vital signs and Labs for Last 24 Hours: Vital Signs Temp Pulse Pulse Resp BP BP Pulse Ox 01/16/24 07:53 01/16/24 06:43 01/16/24 05:01 01/16/24 04:00 69 01/16/24 04:00 98.4 F 74 18 98/58 L 94 L 01/16/24 03:01 01/16/24 00:53 01/16/24 00:00 74 01/16/24 00:00 98.4 F 87 18 110/63 93 L 01/15/24 22:56 01/15/24 21:00 01/15/24 20:00 74 01/15/24 20:00 93 L 01/15/24 20:00 98.9 F 82 18 90/50 L 93 L 01/15/24 19:00 01/15/24 18:14 01/15/24 17:28 01/15/24 17:11 97.9 F 86 18 103/64 L 95 01/15/24 17:03 98.1 F 92 H 18 107/61 L 01/15/24 15:30 85 102/70 L 96 01/15/24 14:30 88 105/61 L 95 01/15/24 14:00 82 101/55 L 96 01/15/24 13:30 101 H 98/62 L 98 01/15/24 13:00 106 H 96 01/15/24 12:45 97.8 F 113 H 18 124/79 96 O2 Del Method 01/16/24 07:53 Room Air 01/16/24 06:43 Room Air 01/16/24 05:01 Room Air 01/16/24 04:00 01/16/24 04:00 Room Air 01/16/24 03:01 Room Air 01/16/24 00:53 Room Air 01/16/24 00:00 01/16/24 00:00 Room Air 01/15/24 22:56 Room Air 01/15/24 21:00 Room Air 01/15/24 20:00 07/02/24 20:00 Room Air 01/15/24 20:00 Room Air 01/15/24 19:00 Room Air 01/15/24 18:14 Room Air 01/15/24 17:28 Room Air 01/15/24 17:11 Room Air 01/15/24 17:03 01/15/24 15:30 Room Air 01/15/24 14:30 01/15/24 14:00 01/15/24 13:30 01/15/24 13:00 Room Air 01/15/24 12:45 Room Air Intake and Output 01/15/24 01/16/24 01/16/24 19:59 03:59 11:59 Intake Total 420 / 537 117 / 537 Balance 420 / 537 117 / 537 Intake: Intake, Oral Amount 420 / 420 Intake, Total IV Amount 117 / 117 Vancomycin/Water For Inj (Peg) 117 / 117 1.5 gm In 300 ml @ 150 mls/hr IV ONCE ONE Rx#:[id number] Other: Weight 166 lb 5 oz 162 lb 11.2 oz Patient Weight 01/16/24 11:59 Weight 162 lb 11.2 oz Laboratory Results - last 24 hr 01/15/24 12:43: WBC 11.2 H, RBC 4.38, Hgb 14.2, Hct 40.0, MCV 91.5, MCH 32.4 H, MCHC 35.4, RDW 13.4, Plt Count 262, MPV 9.0, Neut % (Auto) 75.2, Lymph % (Auto) 16.5, [place] % (Auto) 3.2, Eos % (Auto) 4.5, Baso % (Auto) 0.7, Neut # (Auto) 8.4 H, Lymph # (Auto) 1.9, [place] # (Auto) 0.4, Eos # (Auto) 0.5 H, Baso # (Auto) 0.1, ESR 14, Sodium 138, Potassium 3.7, Chloride 109 H, Carbon Dioxide 22, Anion Gap 10.7, BUN 11, Creatinine 0.90, Estimated Creat Clear 88, Estimated GFR 66, Est GFR ( Amer) 80, Glucose 182 H, Calcium 9.6, Total Bilirubin 0.8, AST 35, ALT 36, Alkaline Phosphatase 83, Troponin I < 0.01, C-Reactive Protein 31.5 H, Total Protein 7.4, Albumin 4.2, Globulin 3.2, Albumin/Globulin Ratio 1.3 01/15/24 16:35: Troponin I < 0.01 01/15/24 19:10: Troponin I < 0.01 I & O for Labs for Last 24 Hours: Intake & Output 01/13/24 01/14/24 01/15/24 01/16/24 11:59 11:59 11:59 11:59 Intake Total 537 / 537 Balance 537 / 537 Weight 162 lb 11.2 oz Constitutional: Present no acute distress Respiratory: Present CTA bilaterally Cardiac: Present Reg Rate and Rhythm GI: Present soft; Absent tenderness Extremities: Absent edema Comment:: Right side of the face and jawline still with edema and erythema, very tender Neuro: Present alert, awake and oriented x 3 Assessment and Plan *Assessment and plan (1) Cellulitis of face: Status: Acute Category: Medical Code(s): L03.211 - Cellulitis of face (2) Swelling of right side of face: Status: Acute Category: Medical Code(s): R22.0 - Localized swelling, mass and lump, head (3) Hypertension: Status: Acute Qualifiers: Hypertension type: primary hypertension Qualified Code(s): I10 - Essential (primary) hypertension Category: Medical Code(s): I10 - Essential (primary) hypertension (4) Tachycardia: Status: Acute Category: Medical Code(s): R00.0 - Tachycardia, unspecified Plan Continue with current IV antibiotics as ordered. Will discuss further care with Dr. Godwin.
[2024-01-16] MEDS: VENLAFAXINE XR 75MG CAPSULE 150 MG PO (08:26)
[2024-01-16] MEDS: METOPROLOL SUCCINATE XL 50MG TABLET 50 MG PO (08:26)
[2024-01-16] MEDS: LEVOTHYROXINE 50MCG (0.05MG) TAB 50 MCG PO (08:26)
[2024-01-16] MEDS: NICOTINE 21MG/24HR PATCH 21 MG TD (08:32)
--- NOTE | 2024-01-18 12:41 | CARE MANAGER ---
Contacted patient related to hospital discharge. Patient states she feels much better than she did, but it is still bothering her. She is taking her antibiotics and is aware of follow up appointments. Denies questions or concerns. EV Pierre
--- NOTE | 2024-01-25 16:10 | P.DS_ITS ---
General Admission date:: 01/15/24 Discharge date: 01/16/24 HPI HPI HPI: Patient is a 53-year-old female with a history of hyperlipidemia, psoriasis with arthritis, attention deficit disorder, hypothyroidism, hypertension, tobacco use disorder and irritable bowel syndrome, who presented to [facility] emergency room for evaluation for swelling in her face. The edema started yesterday and gradually progressed to where her lower lip was visible. It was worse during the night and she was experience some rapid heartbeat and thus she presented to urgent treatment center and then to the ER. She has had no difficulty with swallowing or breathing. She states she may have had a fever. She has had no stomach issues. She has had no upper respiratory signs or symptoms except for drainage due to allergies. The following is documentation from ER visit: Medical Decision Narrative: 53-year-old female with past medical history significant for HTN, HLD, colitis, psoriatic arthritis, presents today for evaluation concerning right-sided facial swelling and pain worsening over the past day. She reports subjective fevers and chills and notes some difficulty with swallowing. She also reports p alpitations, shortness of breath and lightheadedness over the same time period. On assessment she was stable and in no acute distress. Mildly tachycardic. Chest clear to auscultation bilaterally. Abdomen soft nondistended and nontender. Left-sided facial swelling and tenderness. Swelling extends underneath chin which is mildly indurated. No significant erythema. No trismus. Floor the mouth is soft underneath the tongue. No dental tenderness or palpable abscesses. Differential diagnoses include not limited to [place] angina, cellulitis, dental infection, ACS, among others. EKG was ordered today and on my personal interpretation it was remarkable for sinus tachycardia with a rate of 107 bpm. No ischemic changes. WBC elevated at 11.2. ESR 14. CRP 31.5. Initial troponin less than 0.01. Chest x-ray with no acute cardiopulmonary disease processes on my informal interpretation. Radiology report confirmed. CT soft tissue neck remarkable for bilateral facial soft tissue cellulitis at the level of the mandible, more prominent on the right. She did have cortical disruption of the lateral left mandible. On reassessment she remains medically stable and in no acute distress. She has continued to tolerate her secretions appropriately. She is also tolerating oral intake. I discussed ED workup and results as well as current plan to admit for IV antibiotics to treat her significant cellulitis. She verbalized understanding and agreed with plan. I did consult with Dr. Godwin and discussed management and he has agreed to admit and evaluate. Patient remains clinically stable and in no acute distress at this time. The above as per ER physician. She did receive piperacillin and vancomycin along with 500 mL of IV fluids while in the emergency room. She was given ketorolac for pain as well as morphine. And also Zofran. Hospital Course Hospital Course Hospital Course: The patient was continued on IV antibiotics and her lisinopril was not ordered due to possible anaphylactic reaction that could cause facial edema. By 02/12/2024, she was feeling a little better. The pain and swelling in the right side of her face had improved she was able to sleep but had difficulty eating due to pain. She was stable to be discharged home on oral antibiotics. Exam Data for Last 24 hours Vital signs and Labs for Last 24 Hours: Temp Pulse Resp BP Pulse Ox O2 Del Method 97.9 F 78 16 104/64 L 94 L Room Air 01/16/24 08:00 01/16/24 08:00 01/16/24 08:00 01/16/24 08:00 01/16/24 04:00 01/16/24 09:00 Narrative: Constitutional Constitutional: no acute distress Comments: Sitting up in the bed and appears comfortable *Routine HEENT Exam Head: Present normocephalic, atraumatic and facial swelling (Left cheek and neck) Eye: Present PERRL; Absent conjunctival icterus, scleral injection or conjunctivae pink ENT: Present mucous membranes moist and oropharynx clear; Absent dentition normal *Routine Neck Exam Neck: Present lymphadenopathy (Right neck and submandibular); Absent carotid bruit or thyromegaly *Routine Respiratory Exam Respiratory: Present CTA bilaterally (Anteriorly and posteriorly) *Routine Cardiovascular Exam Cardiovascular: Present RRR *Routine Abdominal Exam Abdominal: Present soft and normoactive bowel sounds; Absent tenderness or distended *Routine Rectal Exam Rectal:: deferred *Routine Genitalia Exam Genitalia:: deferred *Routine Extremities Exam Extremities: Present pulses intact; Absent edema or calf tenderness *Routine Neurological Exam Neurological: Present alert and oriented X3 DS: Diagnosis Discharge Diagnosis (1) Cellulitis of face: Status: Acute Code(s): L03.211 - Cellulitis of face (2) Swelling of right side of face: Status: Acute Code(s): R22.0 - Localized swelling, mass and lump, head (3) Hypertension: Status: Acute Code(s): I10 - Essential (primary) hypertension Qualifiers: Hypertension type: primary hypertension Qualified Code(s): I10 - Essential (primary) hypertension (4) Tachycardia: Status: Resolved Code(s): R00.0 - Tachycardia, unspecified Meds Home Medications and Allergies Home Medications Medication Instructions Recorded Confirmed Type metoprolol succinate 50 mg 50 mg PO DAILY 04/08/19 01/15/24 History tablet,extended release 24 hr venlafaxine 150 mg 150 mg PO DAILY Depression 04/08/19 01/15/24 History capsule,extended release 24 hr dextroamphetamine-amphetamine ER 40 mg PO DAILY ADHD 03/25/20 01/15/24 History 20 mg 24hr capsule,extend release (Adderall XR) vitamin B comp and C no.3 15 mg-10 1 cap PO DAILY Supplement 03/25/20 01/15/24 History mg-50 mg-5 mg-300 mg capsule (B Complex Plus Vitamin C) levothyroxine 50 mcg tablet 50 mcg PO DAILY 11/23/21 01/15/24 History infliximab 100 mg intravenous 100 mg IV Q8W . 01/01/23 01/15/24 History solution (Remicade) rosuvastatin 20 mg tablet 20 mg PO HS 01/01/23 01/16/24 History leflunomide 10 mg tablet 10 mg PO DAILY 07/04/23 01/15/24 History dextroamphetamine-amphetamine 10 10 mg PO 1200 01/15/24 01/16/24 History mg tablet pregabalin 25 mg capsule 25 mg PO BID 01/15/24 01/15/24 History amoxicillin 500 mg-potassium 1 tab PO TID #30 tabs 01/16/24 Rx clavulanate 125 mg tablet (Augmentin) cholecalciferol (vitamin D3) 50 50 mcg PO DAILY 01/16/24 01/16/24 History mcg (2,000 unit) capsule lisinopril 20 mg tablet 20 mg PO BID 01/16/24 01/16/24 History methylprednisolone 4 mg tablets in 4 mg PO DAILY #21 tabs 01/16/24 Rx a dose pack (Medrol (Soham)) New Prescriptions to Start Prescriptions: amoxicillin-pot clavulanate [Augmentin] Sydnie Godwin methylprednisolone [Medrol (Soham)] Sydnie Godwin Allergies Allergy/AdvReac Type Severity Reaction Status Date / Time cephalexin [From KEFLEX] Allergy Mild Verified 01/15/24 12:51 levofloxacin [LEVOFLOXACIN] Allergy Unknown I-RASH Verified 01/15/24 12:51 clindamycin Allergy Verified 01/15/24 12:51 Sulfa (Sulfonamide Allergy Verified 01/15/24 12:51 Antibiotics) Discharge Plan Disposition Patient Disposition: Home, Self-Care Condition: Fair Follow up Plan Follow up with: Sydnie Godwin MD [Primary Care Provider] - 01/24/24 2:30 pm (patient has dental appointment on 01/20 at 1:00 in at [facility]) Prescriptions/Medication Reconciliation: New amoxicillin-pot clavulanate [Augmentin] 500-125 mg tablet 1 tab PO TID Qty: 30 0RF methylprednisolone [Medrol (Soham)] 4 mg tablets,dose pack 4 mg PO DAILY Qty: 21 0RF Continued dextroamphetamine-amphetamine [Adderall XR] 20 mg capsule,extended release 24hr 40 mg PO DAILY B Complex Plus Vitamin C 76-93-90-5-300 mg capsule 1 cap PO DAILY Rx Instructions: give with food (meal/snack) infliximab [Remicade] 100 mg recon soln 100 mg IV Q8W rosuvastatin 20 mg tablet 20 mg PO HS Patient Comments: TAKE 1 TABLET BY MOUTH ONCE DAILY AT BEDTIME FOR 30 DAYS venlafaxine 150 MG capsule,extended release 24hr 150 mg PO DAILY metoprolol succinate 50 MG tablet extended release 24 hr 50 mg PO DAILY leflunomide 10 mg tablet 10 mg PO DAILY Patient Comments: TAKE 1 TABLET BY MOUTH ONCE DAILY dextroamphetamine-amphetamine 10 mg tablet 10 mg PO 1200 Patient Comments: TAKE 1 TABLET BY MOUTH ONCE DAILY WITH LUNCH pregabalin 25 mg capsule 25 mg PO BID Patient Comments: TAKE 1 CAPSULE BY MOUTH TWICE DAILY lisinopril 20 mg tablet 20 mg PO BID Patient Comments: TAKE 1 TABLET BY MOUTH TWICE DAILY cholecalciferol (vitamin D3) 50 mcg (2,000 unit) Capsule 50 mcg PO DAILY levothyroxine 50 MCG tablet 50 mcg PO DAILY Problem Reconciliation Problems Reviewed?: Yes Patient Discharge Instructions ACTIVITY: Limited activity DIET: advance to your usual diet Patient Instructions: DI for Cellulitis -- Adult Providers Primary Care Provider: Sydnie Godwin Admit Provider: Sydnie Godwin Attending Provider: Sydnie Godwin
== END 2024-01-16 10:57 | disposition home or self-care (01) ==
LOC: ER 15:48 → 2ND 17:09
PROVIDERS: Admitting Provider Family Medicine; Emergency Provider Emergency Medicine; PCP Family Medicine; Visit Provider Family Medicine
DX: L03.211 Cellulitis of face (principal); I10 Essential (primary) hypertension; E78.5 Hyperlipidemia, unspecified; E03.9 Hypothyroidism, unspecified; F17.210 Nicotine dependence, cigarettes, uncomplicated; Z79.899 Other long term (current) drug therapy; L40.50 Arthropathic psoriasis, unspecified; F98.8 Other specified behavioral and emotional disorders with onset usually occurring in childhood and adolescence; K58.9 Irritable bowel syndrome, unspecified; L40.9 Psoriasis, unspecified
CPT/HCPCS: 36415; 70491; 71045; 80053; 84484; 85025; 85651; 86140; 93005; 99285; G0378; J1885; J2270; J2405; J2543; J7120; Q9967

== ENCOUNTER 2025-03-03 07:10 | Outpatient (CLI) | payer BC, SELFPAY ==
--- OUTSIDE RECORDS SUMMARY | 2025-01-12 10:45 | XMS_ITS ---
[facility] Address [address] [place] [id number] Care Team Providers Care Licensed Marriage And Family Therapist Name Role Phone Krystal Godwin Primary Care Provider Allergies Allergen (clinical drug ingredient) Drug/Non Drug Allergy documented on EMR Reaction Allergy Type Onset Date Status amoxicillin Amoxicillin Unknown Drug Allergy Act paris cephalexin Cephalexin Unknown Drug Allergy Activ e Levaquin Unknown Drug Allergy Active Maxzide-25 rash Drug Allergy Active golimumab Simponi Aria Unknown Drug Allergy Acti ve REASON FOR VISIT suture removal Medications Medication SIG (Take, Route, Frequency, Duration) Notes Start Date End Date Status Metoprolol Succinate ER 50 MG Take 1 tablet by mouth once daily; Duration: 90 days Active Adderall XR 20 MG 2 tab(s) orally once a day (in the morning) 12/20/2024 Active Levothyroxine Sodium 50 MCG Take 1 tablet by mouth once daily; Duration: 90 Active Venlafaxine HCl ER 150 MG Take 1 capsule by mouth once daily; Duration: 90 Active Adderall 10 MG 1 tab(s) orally once a day at lunch 12/20/2024 Active Rosuvastatin Calcium 20 MG 1 tablet Orally Once a day; Duration: 90 days Active Lisinopril 20 MG Take 1 tablet by twice daily; Duration: 90 Active Vitamin D3 1.25 MG (33559 UT) 1 cap(s) orally once a month; Duration: 30 day(s) 02/01/2018 Active Co Q 10 100 MG as directed Orally Active Vitamin B-12 1000 MCG 1 tab(s) orally on ce a day; Duration: 30 day(s) 06/07/2015 Active Remicade 100 MG as directed intravenously every 7 weeks Not-Taking Leflunomide 10 MG 1 tablet Orally Once a day in the am Not-Taking Fenofibrate 145 MG 1 tablet Orally Once a day; Duration: 90 days Active Vital Signs Weight 179 lbs 01/12/2025 Blood pressure systolic 122 mm Hg 01/13/20 25 Blood pressure diastolic 76 mm Hg 025 Heart Rate 80 /min 01/12/2025 Height 66 in 01/12/2025 BMI 28.89 kg/m2 01/12/2025 Encounters Encounter Location Date Provider Diagnosis [facility] [address] [place], [place] [phone] 01/12/2025 Krystal Godwin Plan Of Treatment No Information Progress Notes * JULY ZHENGOB:1970 ([age] yo F)Acc No.[id number]:01/12/2025 Patient: ALONSO HUANG Provider: Krystal Godwin M.D. :1970 A ge:54 Y S ex:Female Date:01/12/2025 Address:[address] [place] [address], [place], [id number] Subjective: * Chief Complaints: * 1 . Suture removal. * HPI: D ermatology: 54 year old female presents with c/o stitch removal T he patient is here today for suture removal. Pt states its been doing good. * ROS: D ERMATOLOGY: no R jiemnez. n o H matt. G ASTROENTEROLOGY: no N ausea. n o V omiting. n o D iarrhea.? U ROLOGY: no D ifficulty urinating. n o B lood in urine. * Medical History: I rritable Bowel Syndrome, Psoriasis, Psoriatic arthritis, ADHD, Fungal esophagitis. * Surgical History: R knee x5 surgery 1984 to 2010, C section [facility] 1997, hysterectomy, abdominal 1997, hysteroscopy, lab and d&c Dr. Cannon 1996, ganglion cyst on R hand removed 2007, breast reduction 1993, tooth pulled 04/08/2013. * Hospitalization/Major Diagno stic Procedure: d ouble pneumonia 1998 & 2000, [facility] Colitis 08/22-07/01, [facility] 03/[facility]. * Family History: F ather: alive. M other: alive. 1 son(s) - healthy. . * Social History: C URRENT TOBACCO USE S moking Status: Patient does smoke, packs per day: 1, Since age of: 18. H ome smoke detector use: yes. Marital Status: . Past smoking status: yes, PPD: 1/2 , years: ,determination:1. Alcohol: Yes, Type: , Frequency: ,Years: , Determination:, rare. * Medications: T aking Co Q 10 100 MG Capsule as directed Orally , Taking Vitamin B-12 1000 MCG Tablet 1 tab(s) orally once a day , Taking Vitamin D3 1.25 MG (43759 UT) Capsule 1 cap(s) orally once a month , Taking Rosuvastatin Calcium 20 MG Tablet 1 tablet Orally Once a day , Taking Lisinopril 20 MG Tablet Take 1 tablet by mouth twice daily , Taking Levothyroxine Sodium 50 MCG Tablet Take 1 tablet by mouth once daily , Taking Venlafaxine HCl ER 150 MG Capsule Extended Release 24 Hour Take 1 capsule by mouth once daily , Taking Metoprolol Succinate ER 50 MG Tablet Extended Release 24 Hour Take 1 tablet by mouth once daily , Taking Adderall XR 20 MG Capsule Extended Release 24 Hour 2 tab(s) orally once a day (in the morning) , Taking Adderall 10 MG Tablet 1 tab(s) orally once a day at lunch , Taking Fenofibrate 145 MG Tablet 1 tablet Orally Once a day , Not-Taking Leflunomide 10 MG Tablet 1 tablet Orally Once a day in the am , Not-Taking Remicade 100 MG Solution Reconstituted as directed intravenously every 7 weeks , Medication List reviewed and reconciled with the patient * Allergies: C ephalexin, Amoxicillin, Levaquin, Simponi Aria, Maxzide-25: rash. Objective: * Vitals: W t: 179, Temp: 97.9, BP: 122/76, HR: 80, Nurse: kailyn, Ht: 66, BMI:28.89. Assessment: Plan: * Treatment: * Images: Billing Information: * Visit Code: * Procedure Codes: * Electronic signature of Krystal Godwin MD on 03/03/2025 at 07:13 AM EDT Sign off status: Pending * Provider: Krystal Godwin M.D. Date: 0 01/12/2025 Generated for George yin/Katia/Lázaro on: 0 03/03/2025 07:13 AM EDT History and Physical Notes * HPI (History of Present Illness) Category Sub-Category Detail Notes Category Not es Dermatology stitch removal The patient is h ere today for suture removal. Pt states its been doing good
--- OUTSIDE RECORDS SUMMARY | 2025-01-22 11:15 | XMS_ITS ---
Author Organization [facility] Address [address] [place] [id number] Care Team Providers Care Family Protection Specialist Name Role Phone Krystal Godwin Primary Care Provider [phone] Allergies Allergen (clinical drug ingredient) Drug/Non Drug Allergy documented on EMR Reaction Allergy Type Onset Date Status Amoxicillin Unknown Drug Allergy Activ e Cephalexin Unknown Drug Allergy Active Levaquin Unknown Drug Allergy Active Maxzide-25 rash Drug Allergy Active Simponi Aria Unknown Drug Allergy Acti ve REASON FOR VISIT F/U Medications Medication SIG (Take, Route, Frequency, Duration) Notes Start Date End Date Status Adderall 10 MG 1 tab(s) orally once a day at lunch 01/22/2025 Active Metoprolol Succinate ER 50 MG Take 1 tablet by mouth once daily; Duration: 90 days Active Remicade 100 MG as directed intravenously every 7 weeks Not-Taking Leflunomide 10 MG 1 tablet Orally Once a day in the am Not-Taking Fenofibrate 145 MG 1 tablet Orally Once a day; Duration: 90 days Active Adderall XR 20 MG 2 tab(s) orally once a day (in the morning) 01/22/2025 Active Venlafaxine HCl ER 150 MG Take 1 capsule by mouth once daily; Duration: 90 Active Levothyroxine Sodium 50 MCG Take 1 tablet by mouth once daily; Duration: 90 Active Lisinopril 20 MG Take 1 tablet by hilton th twice daily; Duration: 90 Active Rosuvastatin Calcium 20 MG 1 tablet Orally Once a day; Duration: 90 days Active Vitamin D3 1.25 MG (60031 UT) 1 cap(s) orally once a month; Duration: 30 day(s) 02/01/2018 Active Vitamin B-12 1000 MCG 1 tab(s) orally on ce a day; Duration: 30 day(s) 06/07/2015 Active Co Q 10 100 MG as directed Orally Active Vital Signs Weight 179.0 lbs 01/22/2025 Blood pressure systolic 140 mm Hg 01/23/20 25 Blood pressure diastolic 90 mm Hg 025 Heart Rate 78 /min 01/22/2025 Height 66 in 01/22/2025 BMI 28.89 kg/m2 01/22/2025 Encounters Encounter Location Date Provider Diagnosis [facility] [address] [place], [place] [phone] 01/22/2025 Krystal Godwin Attention deficit disorder F90.0 ; 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 and BMI 28.0-28.9,adult Z68.28 Assessments Encounter Date Diagnosis (ICD Code) Assessment Notes Treatment Notes Treatment Clinical Notes Section Notes 01/22/2025 Attention deficit disorder (ICD-10 - F90.0) 01/22/2025 Granuloma annulare (ICD-10 - L92.0) 01/22/2025 BMI 28.0-28.9,adult (ICD-10 - Z68.28) Plan Of Treatment Medication Medication Name Sig Start Date Stop Date Notes Adderall 10 MG 1 tab(s) orally once a day at lunch 025 Adderall XR 20 MG 2 tab(s) orally once a day (in the morning) 01/22/2025 Next Appt Details Follow Up: 3 Months, Reason: Progress Notes * JULY ZHENGOB:1970 ([age] yo F)Acc No.[id number]:01/22/2025 Progress Notes Patient: ALONSO HUANG Provider: Krystal Godwin M.D. :1970 A ge:54 Y S ex:Female Date:01/22/2025 [facility] [address] [place], [id number] Subjective: * Chief Complaints: * 1 . F/U. * ROS: D ERMATOLOGY: no R jimenez. n o H matt. G ASTROENTEROLOGY: no N ausea. n o V omiting. n o D iarrhea.? U ROLOGY: no D ifficulty urinating. n o B lood in urine. * Medical History: I rritable Bowel Syndrome, Psoriasis, Psoriatic arthritis, ADHD, Fungal esophagitis. * Surgical History: R knee x5 surgery 1984 to 2010, C section [facility] 1997, hysterectomy, abdominal 1997, hysteroscopy, lab and d&c Dr. Cannon 1996, ganglion cyst on R hand removed 2007, breast reduction 1993, tooth pulled 04/08/2013. * Hospitalization/Major Diagno stic Procedure: d ouble pneumonia 1998 & 1999, [facility] Colitis 08/22-07/01, [facility] 03/2020. * [...] day , Taking Vitamin D3 1.25 MG (49798 UT) Capsule 1 cap(s) orally once a [...] Reconstituted as directed intravenously every 7 weeks * Allergies: C ephalexin, Amoxicillin, Levaquin, Simponi Aria, Maxzide-25: rash. Objective: * Vitals: W t: 179.0, Temp: 97.7, BP: 140/90, HR: 78, Nurse: ARNIE, Ht: 66, BMI:28.89. * Examination: G eneral Examination: General Appearance: N AD, appears healthy, pleasant, Color good. H eart: R SR. E xtremities: 2 lesions of proximal dorsal forearm, healing.? Assessment: * Assessment: 1. A ttention deficit disorder - F90.0 (Primary) 2 . 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 B SD 28.0-28.9,adult - Z68.28 Plan: * Treatment: * Procedure Codes: G 8420 BMI<30 AND >=22 CALC & DOCU * Follow Up: 3 Months * Images: Billing Information: * Visit Code: 67247 Office Visit, Est Pt., Level 3. * Procedure Codes: G8420 BMI<30 AND >=22 CALC & DOCU. * Electronic signature of Krystal Godwin MD on 03/03/2025 at 07:12 AM EDT Sign off status: Pending * Provider: Krystal Godwin M.D. Date: 0 01/22/2025 Generated for George yin/Katia/Lázaro on: 0 03/03/2025 07:12 AM EDT History and Physical Notes * Examination Category Sub-Category Detail Notes Category Not es General Examination Heart: RSR Extremities: 2 lesions of proxima l dorsal forearm, healing General Appearance: NAD, appears healthy , pleasant, Color good
--- OUTSIDE RECORDS SUMMARY | 2025-02-10 06:02 | XMS_ITS ---
[facility] Address [address] [place] [id number] Care Team Providers Care Cloth Inspector Name Role Phone Krystal Godwin Primary Care Provider REASON FOR VISIT due [place], col, LDCT Encounters Encounter Location Date [facility] [address] [place] [id number] 02/10/2025 Krystal Godwin Screening for breast cancer Z12.39 ; Screening for lung cancer Z12.2 and History of tobacco use Z87.891 Assessments Encounter Date Diagnosis (ICD Code) Assessment Notes Treatment Notes Treatment Clinical Notes Section Notes 02/10/2025 Screening for breast cancer (ICD-10 - Z12.39) 02/10/2025 Screening for lung cancer (ICD-10 - Z12.2) 02/10/2025 History of tobacco use (ICD-10 - Z87.891) Plan Of Treatment Pending Test Test Name Order Date Mammogram 02/10/2025 CT Scan : Chest, low dose 02/10/2025 Progress Notes * JULY ZHENGOB:1970 ([age] yo F)Acc No.[id number]:02/10/2025 Patient: ALONSO HUANG :1970 A ge:54 Y S ex:Female Address:[address] [place] [address] Subjective: * Chief Complaints: * d ue [place], col, LDCT * Medical History: * Surgical History: * Hospitalization/Major Diagno stic Procedure: * Medications: Objective: * Vitals: * Physical Examination: Assessment: * Assessment: 1. S creening for breast cancer - Z12.39 (Primary) 2 . S creening for lung cancer - Z12.2 3 . H istory of tobacco use - Z87.891 Plan: * Treatment: 2.?Screening for lung cancer?Imaging: CT Scan : Chest, low dose* Antonieta Chand 02/10/2025 11:3 6:28 AM EDT > sent to [facility] for referral to [facility] 3.?History of tobacco use?Imaging: CT Scan : Chest, low dose* Antonieta Chand 02/10/2025 11:3 6:28 AM EDT > sent to [facility] for referral to [facility] * Procedure Codes: * true * Date: Generated for George yin/Katia/Brandtitting on: 0 03/03/2025 07:12 AM EDT
--- OUTSIDE RECORDS SUMMARY | 2025-02-12 14:45 | XMS_ITS | Encounter Summary ---
Author Organization [facility] Address [address] [place] [address] Care Team Providers Care Uniform Maker Name Role Phone Alexandra Zabala MD Unavailable Reason for Visit * Reason Comments Psoriatic Arthritis Encounter Details Date Type Department Care Team (Latest Contact Info) Description 02/12/2025 2:45 PM EDT Office Visit [facility] [address] [place] [address] Alexandra Zabala MD [address] [place] [address] Polyarticular psoriatic arthritis (HCC) (Primary Dx); Encounter for long-term (current) use of medications; Vitamin D deficiency Social History Tobacco Use Types Packs/Day Years Used Date Smoking Tobacco: Every Day Cigarettes Smokeless Tobacco: Never Alcohol Use Standard Drinks/Week Comments Yes 0 (1 standard drink = 0.6 oz pur e alcohol) social Comments No Sex and Gender Information Value Date Recorded Sex Assigned at Not on file Legal Sex Female 11:26 AM EST Gender Identity Not on file Sexual Orientation Not on file documented as of this encounter Last Filed Vital Signs Vital Sign Reading Time Taken Comments Blood Pressure 116/74 02/12/2025 2:50 PM EDT Pulse - - Temperature 36.3 C (97.3 F) 02/12/2025 2:50 PM EDT Respiratory Rate - - Oxygen Saturation - - Inhaled Oxygen Concentration - - Weight 78 kg (172 lb) 02/12/2025 2:50 PM EDT Height 172.7 cm (5' 8 ) 02/12/2025 2:50 PM EDT Body Mass Index 26.15 02/12/2025 2:50 PM EDT documented in this encounter Ordered Prescriptions Prescription Sig Dispense Quantity Refills Last Filled Start Date End Date pregabalin (LYRICA) 25 mg Oral Capsule Take 2 Capsules by mouth nightly. 60 Capsule 2 02/12/2025 leflunomide (ARAVA) 10 mg Oral TabletIndications: Encounter for long-term (current) use of medications Take 1 Tablet by mouth daily. 30 Tablet 2 02/12/2025 albuterol (PROVENTIL HFA;VENTOLIN HFA) 90 mcg/actuation Inhl HFA Aerosol InhalerIndications :Polyarticular psoriatic arthritis (HCC) Inhale 2 Puffs into the lungs every 4 hours as needed for Wheezing. 6.7 g 2 02/12/2025 documented in this encounter Progress Notes * Alexandra Zabala MD - 02/12/2025 2:45 PM EDT Images from the original note were not included. Subjective Subjective: Patient ID: Maryse Wood is a 54 y.o. female. Chief Complaint Patient presents with ??? Psoriatic Arthritis HPI: Maryse Wood is a 54 y.o.female seen back today in follow up for her Psoriatic Arthritis; since her last visit she has had 3 teeth extractions and will have 2 more in mar. Which will complete removal of all infected teeth; She continues to have psoriasis over her hands and legs, pain in her hands, knees, extended AM stiffness lasting several hours and swelling in her hands and R knee, psoriasis has been active nd very pruritic, has had some mild wheezing since visiting [place] denies fevers or SOB RAPID 3 filled out by the patient and reviewed by myself today = 11/22 REVIEW OF SYSTEMS See HPI for further details. Review of systems otherwise negative. Past Medical History: Diagnosis Date ??? Depression mild no SI ??? Hypertension Social History Tobacco Use ??? Smoking status: Every Day Current packs/day: 1.00 Types: Cigarettes ??? Smokeless tobacco: Never Substance Use Topics ??? Alcohol use: Yes Comment: social Family History Problem Relation Age of Onset ??? Psoriasis Maternal Grandfather Allergies Allergen Reactions ??? Cephalexin Nausea Only ??? Clindamycin Nausea Only s ??? Levofloxacin Rash ??? Sulfa (Sulfonamide Antibiotics) Other (See Comments) stomach pain Outpatient Medications Marked as Taking for the 02/12/25 encounter (Office Visit) with Alexandra Zabala MD Medication Sig Dispense Refill ??? ADDERALL XR 20 mg Oral Capsule, Sust. Release 24 hr TAKE 2 CAPSULES BY MOUTH ONCE DAILY IN THE MORNING ??? cholecalciferol, vitamin D3, (VITAMIN D3) 25 mcg (1,000 unit) Oral Tablet Take 1 Tablet by mouth daily. ??? Coenzyme Q10 100 mg Oral Capsule Take by mouth. ??? cyanocobalamin 100 mcg Oral Tablet Take by mouth daily. ??? dextroamphetamine-amphetamine (ADDERALL) 10 mg Oral Tablet TAKE 1 TABLET BY MOUTH ONCE DAILY WITH LUNCH ??? fenofibrate (TRICOR) 145 mg Oral Tablet Take 145 mg by mouth daily. ??? leflunomide (ARAVA) 10 mg Oral Tablet Take 1 Tablet by mouth daily. 30 Tablet 2 ??? [DISCONTINUED] leflunomide (ARAVA) 10 mg Oral Tablet Take 1 tablet by mouth once daily 30 Tablet 1 ??? LEVOthyroxine (SYNTHROID) 50 mcg Oral Tablet Take 50 mcg by mouth daily. ??? lisinopriL (PRINIVIL;ZESTRIL) 40 mg Oral Tablet ??? metoprolol succinate (TOPROL-XL) 50 mg Oral Tablet Sustained Release 24 hr Take 50 mg by mouth daily. ??? pregabalin (LYRICA) 25 mg Oral Capsule Take 2 Capsules by mouth nightly. 60 Capsule 2 ??? [DISCONTINUED] pregabalin (LYRICA) 25 mg Oral Capsule Take 2 Capsules by mouth nightly. 60 Capsule 2 ??? rosuvastatin (CRESTOR) 20 mg Oral Tablet TAKE 1 TABLET BY MOUTH ONCE DAILY AT BEDTIME FOR 30 DAYS ??? venlafaxine (EFFEXOR-XR) 150 mg Oral Capsule, Sust. Release 24 hr Take 150 mg by mouth daily. Objective: Physical Exam Vital Signs: BP 116/74 (BP Location: Left arm) Temp 97.3 ??F (36.3 ??C) Ht 5' 8 (1.727 m) Wt172 lb (78 kg) LMP (LMP Unknown) BMI 26.15 kg/m?? Body mass index is 26.15 kg/m??. Well nourished and well developed in no acute distress. Affect is normal and appropriate. Mucosa pink and moist. Heart is RRR without murmurs. Gait is WNL. -Neuro is grossly intact with no obvious tremors; -Lungs: mild diffuse wheezes SKIN: Skin color, texture, turgor normal. There are multiple thickened salmon colored plaques over her knees, lower legs; elbows; pustular erythematous macules over her left lower arm MSK: Spine: Full ROM, lower SI joints have stiffness Upper Extremities : Full ROM, swelling pain 2,3 rd PIP s, wrist ; shoulder pain no pain on ROM, no warmth, no crepitus, 100% fist; left elbow is non-tender; left CMC joint is tender Lower Extremities: Full ROM, R knee is tender to ROM with moderate swelling, and no effusion; over central knee, no warmth; ; no erythema, no warmth, no crepitus, MTP s are 2,3 b/l are diffusely mildly swollen and tender; ; Left trochanteric bursa has trace tenderness; straight leg test on her leftwas negative -muscle strength and coordination are grossly intact -IMAGING: --X-Rays dated 01/03/23 -Chest X-Ray: No acute intrathoracic process. -C-Spine: 1. Reversal cervical lordosis which may be on the basis of muscle spasm or patient position. No fracture or instability. 2. Moderate discogenic change C5-6. -Right Hands: No significant arthritic process or acute bone or soft tissue abnormality. -Left Hand? -B/L knees: LEFT:No fracture. No dislocation. No significant degenerative changes. RIGHT:Severe medial compartment degenerative joint space narrowing. . -B/L Feet: 1. No acute osseous abnormality. -ordered: left hand; T- spine, L-spine and SI joints; advised to have done -INJECTIONS: -depot 80mg 06/01/20; again 02/12/25 -B12 injection (05/01/19) -LEft CMC joint cortisone 05/12/21 -R trochanter bursa cortisone; 05/01/19 -Left trochanteric cortisone injection 01/31/22 -R knee cortisone injection and aspiration; again 11/08/23 with 10cc's red/clear fluid aspirated andsent to the lab -R knee injection with cortisone: 02/28/24 -R elbow cortisone injection 02/18/18 -R wrist injection cortisone 10/08/17 -R shoulder cortisone: 02/28/24 -PROCEDURES: -80mg methylprednisolone IM was given without complication. The risks of methylprednisolone were reviewed by me with the patient, including but not limited to the risk of hyperglycemia, cataracts, osteopenia, psychosis, insominia, avascular necrosis and weight gain -Documents: -Handicap placard completed 10/08/17; revised 08/19/18 -LABS: -TB gold; 08/26/24: negative; -acute Hep panel last checked 03/19/20 was negative -Labs dated; 11/25/24; reviewed with the patient; pertinent positive and negatives include; normal; CBC, CMP creat. 1.06 H, ESR, CRP; vit. 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 Conklin --disease is active moderate to severe; joints and psoriasis;overlapped with advanced DJD on her R knee; (effusions have not been inflammatory) -Arava 10mg; restarted 11/2024 (on hold 02/2024 to 11/2024 swine flu/dental infections) responsive butstill very active -she will complete all infected teeth extractions in mar. After which we discussed OK to restart the remicade 2 weeks post extraction if no infection ; note sent to biologic will plan to start 5mg /kg q 7 weeks instead of prior dose of 6mg/kg q 7 weeks w pre-treatment due to interruption and priorreactions -responsive to remicade infusions. 6mg/kg Q 7 weeks; Last infused; 09/26/23; - clobetasol topical PRNuse -she requested a depot-medrol; discussed risk of rebound psoriasis -reacted on 02/21/23 remicade infusion (throat tightness; no sob, rash, itching,VSS) responsive to solumedrol; pre-treatement restarted 60mg solumedrol with plans to taper to 40mg; no further reactions; discussed increase of her remicade dose further could increase risk of another infusion reaction -FAILED: -unable to increase MTX back up to 20mg due to transaminitis w leucovorin; tolerates lower doses -AVOIDING SULFA drugs due to allergic reaction with triamterene -off Cimzia since Jul; numerous issues with insurance approval and dealing with the specialty pharmacy -Failed orencia; 3 infusions of orencia (stopped in December 2018 due to worsening pain) option to retry if needed -received only half of simponi infusion on 08/08/17 reaction; throat tightening -needle phobic failed enbrel ; -remicade on hold for several months (01/10/22-06/27/22); -failed Tramadol # Wheezing on exam: -mild reports seasonal, no SOB, or fevers; albuterol INH sent in but advised to see PCP if not improved, go to the ED for SOB # Right Knee Osteoarthritis: -advanced DJD; xrays (01/03/23); knee symptoms are improved by injections for about 3 week;s no improvement with the remicade; discussed recurrent effusions swelling are likely DJD related; w PsA overlap. -Advised an ortho evaluation referral placed; -R knee plaque improved; depot-today but can schedule earlier if she wants to repeat an injection # Transaminitis: -mild fluctuating; Close monitoring on Arava --off MTX # Tobacco use (Z72.0): -advised cessation she is attempting to cut down # Colitis (K52.9): -hospitalized for 1 week; for unclear GI issues scope 09/2016 showed a hiatal hernia; inflamed esophagus; several polyps removed 1 precancerous; no IBD -f/u scope advised per GI # Trochanteric bursitis, right hip (M70.61): # Trochanteric bursitis, left hip (M70.62): -active on her left; could have a radicular component from her back; responsive to trochanteric injection # Fatigue (R53.83): # Insomnia: -lyrica 50mg QHS (started 11/08/23); significant pain that interrupts her sleep;(did not like daytime dose); refilled -Thyroid, B12 and folic testing has been normal -FAILED: -gabapentin 300mg QHS responsive but caused some worsening of depression # Carpal tunnel (G56.00): -mild b/l overlapped with RA inflammation; using splints # Osteoarthritis of first carpometacarpal joint (M18.9) -chronic progressive; responsive to brace and injections # Upper respiratory infection (J06.9): # Fungal infection (B49): -persistent URI symptoms; cough, laryngitis, congestion; x 2 months, dx as reccurent strep., 3 rounds of abx, no improvement, referred to ENT visit 05/04/22, no[place]ack dx with fungal laryngitis resolved with PO and topical antifungals # Hypertension: --improved # Right shoulder pain: -likely PsA flare; off all meds; responsive to R shoulder injection # Renal Insufficiency: -improved; advised to avoid all NSAIDs # Tick Bite: -embedded tick (08/26/24) no rash, fever; endemic region; met criteria for prophylaxis; prescribed 1time dose of doxycycline 200mg, # Raynauds: -toes chronic; not affecting hands; advised to keep core and extremities warm; no ulcers # Taking medication for chronic disease (Z79.899): # Immunosuppressed Status: --Patient advised to review medication package insert, on all prescribed medications. --advised to hold DMARD's/Biologics for any infection or surgery, should contact us for further guidance on how/when to hold therapy. Advised to keep up to date on all CDC advised vaccines, but not advised any live vaccinations. Hold DMARD's for 1 week post vaccination. -Remicade; risks and adverse effects discussed including but not limited to the risk of serious infections, and need to alert me if he experiences any of these, the possibly increased risk of malignancy, demyelinating disorders, congestive heart failure, and increased risk of developing SLE like syndromes -PRednisone; we discussed risks of this medication including but not limited to the risk of hyperglycemia, cataracts, osteopenia, psychosis, insomnia, avascular necrosis and weight gain -Arava: discussed risks and adverse effects including but not limited to the risk of diarrhea, elevated liver enzymes (ALT and AST), alopecia, rash, and teratogenicity effects of which may be presentfor as long as 2 years from discontinuation of drug -Lyrica: We discussed issues related to long-term controlled substance use. We had the patient signa controlled substance consent agreement, We discussed the risks, which include (but are not limited to) a baseline risk of addiction. We will monitor for problems of dependence or addiction as best as we can. We discussed the importance of compliance with office policies. This includes (but is notlimited to) taking the medication only as prescribed, only receiving medications from one prescriber, only getting prescriptions filled at one pharmacy, notifying the office immediately if other prescriptions are obtained, The office also can stop prescribing these medications at any time if it is felt the office policies are not being followed. We did discuss also the risk of altered mental status, and risks associated with operating equipment such as driving, A ROSALIO was reviewed. She was cautioned about sedation -Steroids: we discussed risks of this medication including but not limited to the risk of hyperglycemia, cataracts, osteopenia, psychosis, insominia, avascular necrosis and weight gain Orders: - albuterol (PROVENTIL HFA;VENTOLIN HFA) 90 mcg/actuation Inhl HFA Aerosol Inhaler; Inhale 2 Puffs into the lungs every 4 hours as needed for Wheezing. Dispense: 6.7 g; Refill: 2 - methylPREDNISolone acetate (DEPO-Medrol) injection 80 mg Encounter for long-term (current) use of medications - leflunomide (ARAVA) 10 mg Oral Tablet; Take 1 Tablet by mouth daily. Dispense: 30 Tablet; Refill:2 - CBC WITH AUTO DIFF-QUEST - COMPREHENSIVE METABOLIC PANEL-QUEST - SEDIMENTATION RATE AUTOMATED-QUEST - VITAMIN D 25 HYDROXY-QUEST - C REACTIVE PROTEIN-QUEST Vitamin D deficiency - VITAMIN D 25 HYDROXY-QUEST Other orders - pregabalin (LYRICA) 25 mg Oral Capsule; Take 2 Capsules by mouth nightly. Dispense: 60 Capsule; Refill: 2 Return in about 3 months (around 05/15/2025). * Nicole Serra MA - 02/12/2025 2:45 PM EDT Depo Medrol injection 80 mg IM in RIght upper gluteus muscle. Pt tolerated well. documented in this encounter Plan of Treatment Upcoming Encounters Date Type Department Care Team (Late st Contact Info) Description 05/14/2025 2:45 PM EDT Office Visit [facility] [address] [place] [address] Alexandra Zabala MD [address] [place] [address] documented as of this encounter Procedures Procedure Name Priority Date/Time Associated Diagnosis Comments VITAMIN D 25 HYDROXY-QUEST Routine 02/12/2025 3:43 PM EDT Encounter for long-term (current) use of medications Vitamin D deficiency SEDIMENTATION RATE AUTOMATED-QUEST Routine 02/12/2025 3:43 PM EDT Encounter for long-term (current) use of medications C REACTIVE PROTEIN-QUEST Routine 02/12/2025 3:43 PM EDT Encounter for long-term (current) use of medications COMPREHENSIVE METABOLIC PANEL-QUEST Routine 02/12/2025 3:43 PM EDT Encounter for long-term (current) use of medications CBC WITH AUTO DIFF-QUEST Routine 02/12/2025 3:43 PM EDT Encounter for long-term (current) use of medications documented in this encounter Results * C REACTIVE PROTEIN-QUEST (02/12/2025 3:43 PM EDT) CRP <3.0 <8.0 mg/L [facility] 02/12/2025 3:43 PM EDT 02/12/2025 3:47 PM EDT Alexandra Zabala MD [facility]-CHEMISTRY ORDERABLES Final Result Performing Organization Address City/State/RUST Co de Phone Number [facility] [address] [place] [address] * VITAMIN D 25 HYDROXY-QUEST (02/12/2025 3:43 PM EDT) VIT D 25 OH 49 30 - 100 ng/mL [facility] Comment: Vitamin D Status 25-OH Vitamin D: Deficiency: <20 ng/mL Insufficiency: 20 - 29 ng/mL Optimal: > or = 30 ng/mL For 25-OH Vitamin D testing on patients on D2-supplementation and patients for whom quantitation of D2 and D3 fractions is required, the QuestAssureD(TM) 25-OH VIT D, (D2,D3), LC/MS/MS is recommended: order code 78113 (patients >2yrs). See Note 1 Note 1 For additional information, please refer to http://education.Boticca/faq/VVD501 (This link is being provided for informational/ educational purposes only.) 02/12/2025 3:43 PM EDT 02/12/2025 3:47 PM EDT Alexandra Zabala MD [facility]-CHEMISTRY ORDERABLES Final Result Performing Organization Address [facility]/[place] Co de Phone Number [facility] [address] [place] [address] * SEDIMENTATION RATE AUTOMATED-QUEST (02/12/2025 3:43 PM EDT) Pathologist [facility] Sed Rate 2 < OR = 30 mm/h [facility] 02/12/2025 3:43 PM EDT 02/12/2025 3:47 PM EDT Alexandra Zabala MD [facility]-HEMATOLOGY ORDERABLES Josiane l Result Performing Organization Address City/[facility]/ZIP Co de Phone Number [facility] [address] [place] [address] * COMPREHENSIVE METABOLIC PANEL-QUEST (02/12/2025 3:43 PM EDT) [facility] Glucose 72 65 - 99 mg/dL [facility] Comment: Fasting reference interval BUN 14 7 - 25 mg/dL [facility] Creatinine 1.03 0.50 - 1.03 mg/dL [facility] EGFR 65 > OR = 60 mL/min/1.7 3m2 [facility] BUN/Creatinine Ratio SEE NOTE: 6 - 22 (calc) [facility] Comment: Not Reported: BUN and Creatinine are within reference range. Sodium 138 135 - 146 mmol/L [facility] Potassium 4.2 3.5 - 5.3 mmol/L [facility] Chloride 104 98 - 110 mmol/L [facility] CO2 26 20 - 32 mmol/L [facility] Calcium 9.8 8.6 - 10.4 mg/dL [facility] Protein, Total 6.8 6.1 - 8.1 g/dL [facility] Albumin 4.4 3.6 - 5.1 g/dL [facility] Globulin 2.4 1.9 - 3.7 g/dL (calc) [facility] Albumin/Globuli n Ratio 1.8 1.0 - 2.5 (calc) [facility] Total Bilirubin 0.5 0.2 - 1.2 mg/dL [facility] Alk Phos 40 37 - 153 U/L [facility] AST 27 10 - 35 U/L [facility] ALT 26 6 - 29 U/L [facility] 02/12/2025 3:43 PM EDT 02/12/2025 3:47 PM EDT us Alexandra Zabala MD [facility]-CHEMISTRY ORDERABLES Final Result [facility] [address] [place] [address] * (ABNORMAL) CBC WITH AUTO DIFF-QUEST (02/12/2025 3:43 PM EDT) [facility] WBC 7.9 3.8 - 10.8 Thousand/u L [facility] RBC 4.52 3.80 - 5.10 Million/uL [facility] Hemoglobin 13.3 11.7 - 15.5 g/dL [facility] Hematocrit 42.0 35.0 - 45.0 % [facility] MCV 92.9 80.0 - 100.0 fL [facility] MCH 29.4 27.0 - 33.0 pg [facility] MCHC 31.7(L) 32.0 - 36.0 g/dL [facility] Comment: For adults, a slight decrease in the calculated MCHC value (in the range of 30 to 32 g/dL) is most likely not clinically significant; however, it should be interpreted with caution in correlation with other red cell parameters and the patient's clinical condition. RDW 13.1 11.0 - 15.0 % [facility] Platelets 301 140 - 400 Thousand/u L [facility] MPV 12.3 7.5 - 12.5 fL [facility] Neut# 4,527 1,500 - 7,800 cells/uL [facility] Lymph# 2,259 850 - 3,900 cells/uL [facility] Monocytes(Absolu te) 751 200 - 950 cells/uL [facility] Eos 300 15 - 500 cells/uL [facility] Baso# 63 0 - 200 cells/uL [facility] Neut Percent 57.3 % [facility] Lymph Percent 28.6 % [facility] Monocytes 9.5 % [facility] Eos Percent 3.8 % [facility] Baso Percent 0.8 % [facility] 02/12/2025 3:43 PM EDT 02/12/2025 3:47 PM EDT Alexandra HOLT-HEMATOLOGY ORDERABLES Josiane donna Result [facility] [address] [place] [address] documented in this encounter Visit Diagnoses Diagnosis Polyarticular psoriatic arthritis (HCC)- Primary Psoriatic arthropathy Encounter for long-term (current) use of medications Encounter for long-term (current) use of other medications Vitamin D deficiency Unspecified vitamin D deficiency documented in this encounter Administered Medications Inactive Administered Medications - up to 1 most recent administrations Medication Order MAR Action Action Date Dose Rate Site methylPREDNISolone acetate (DEPO-Medrol) injection 80 mg 80 mg, Intramuscular, ONCE, 1 dose, On Ritika 02/12/25 at 1545, Dx: 1. Polyarticular psoriatic arthritis (HCC)Indications:Polyartic ular psoriatic arthritis (HCC) Given 02/12/2025 3:42 PM EDT 80 mg Right upper gluteus documented in this encounter Discontinued Medications Medication Sig Discontinue Reason Start Date End Da te leflunomide (ARAVA) 10 mg Oral TabletIndications:Encoun ter for long-term (current) use of medications Take 1 tablet by mouth once daily Cancelled by 10/16/2024 02/12/2025 leflunomide (ARAVA) 10 mg Oral Tablet Take 1 tablet by mouth once daily Cancelled by 12/20/2023 02/12/2025 pregabalin (LYRICA) 25 mg Oral Capsule Take 2 Capsules by mouth nightly. Reorder 11/25/2024 02/12/2025 documented as of this encounter Historical Medications * This list may reflect changes made after this encounter. Medication Sig Dispense Quantity Refills Last Filled Start D ate End Date lisinopriL (PRINIVIL;ZESTRIL) 40 mg Oral Tablet 02/10/2025 added in this encounter Care Teams Uniform Maker Relationship Specialty Start Date End Date Alexandra Zabala MD [address] [place] [address] Internal Medicine-Rheumatology 02/01/23 documented as of this encounter
--- OUTSIDE RECORDS SUMMARY | 2025-03-03 07:12 | XMS_ITS | Encounter Summary ---
Author Organization [facility] Address [address] [place] [address] Care Team Providers Care Documentation Lead Name Role Phone Alexandra Zabala MD Unavailable Reason for Visit * Reason Onset Date Comments Biologic Restart 02/16/2025 Remicade Restar t Encounter Details Date Type Department Care Team (Late st Contact Info) Description 02/16/2025 Telephone [facility] [address] [place] [address] Elvira Brewer, Clerical Staff Biologic Restart (Remicade Restart) Social History Tobacco Use Types Packs/Day Years [...] on file documented as of this encounter Miscellaneous Notes * Telephone Encounter - Alexandra Zabala MD - 02/17/2025 3:07 PM EDT Sounds good thx * Telephone Encounter - Elvira Brewer, Clerical Staff - 02/17/2025 3:02 PM EDT With the loading dose it would be best to restart at 5mg/kg Q 8 weeks. We will submit PA closer to end of February since patient can't schedule until mid March. Thank you, Elvira * Telephone Encounter - Alexandra Zabala MD - 02/17/2025 2:02 PM EDT Yes loading dose if possible, if easier OK to submit/ start at 5mg/kg Q 8 weeks then we can later submit for the 7 weeks if she is not doing well thx * Telephone Encounter - Elvira Brewer, Clerical Staff - 02/16/2025 9:50 AM EDT We will submit BI & PA for Remicade for patient at 5mg/kg Q 7 weeks. Since patient has been offtreatment since 09/26/23, would you like a loading dose? Also since it has been over a year, I'm notsure if insurance would approve the 7 weeks. I was going to make a note that she was previous stable at 7 weeks but had infections, etc. I saw you don't want her to start until mid March due to dental extractions so it would be too soon to submit PA. We can submit it mid/late February. Thank you, Elvira * Telephone Encounter - Elvira Brewer, Clerical Staff - 02/16/2025 9:50 AM EDT ----- Message from Alexandra Zabala MD sent at 02/12/2025 5:28 PM EDT ----- Could someone submit for restarting back on remicade but lower dose of 5mg/kg Q 7 weeks and please send back to me a reminder I will need to add on pre- treatment for her therapy plan if approved THX documented in this encounter Plan of Treatment Upcoming Encounters Date Type Department Care Team (Late st Contact Info) Description 05/14/2025 2:45 PM EDT Office Visit [facility] [address] [place] [address] Alexandra Zabala MD [address] [place] [address] documented as of this encounter Visit Diagnoses Not on filedocumented in this encounter Care Teams Documentation Lead Relationship Specialty Start Date End Date Alexandra Zabala MD [address] [place] [address] Internal Medicine-Rheumatology 02/01/23 documented as of this encounter
--- OUTSIDE RECORDS SUMMARY | 2025-03-03 07:12 | XMS_ITS | Encounter Summary ---
Author Organization [facility] Address [address] [place] [address] Care Team Providers Care Customs Entry Clerk Name Role Phone Alexandra Zabala MD Unavailable Encounter Details Date Type Department Care Team (Latest Contact Info) Description 11/26/2024 Results Follow-Up [facility] [address] [place] [address] Alexandra Zabala MD [address] [place] [address] CBC WITH AUTO DIFF-QUEST, COMPREHENSIVE METABOLIC PANEL-QUEST, SEDIMENTATION RATE AUTOMATED-QUEST, VITAMIN D 25 HYDROXY-QUEST Social History Tobacco Use Types Packs/Day Years [...] on file documented as of this encounter Progress Notes * Alexandra Zabala MD - 11/26/2024 2:45 PM EDT Please inform liver tests look good, she is OK to continue the arava, but her kidney test was slightly elevated advise to hold all NSAIDs (ibuprofen/alevel) documented in this encounter Plan of Treatment Upcoming Encounters Date Type Department Care Team (Late st Contact Info) Description 05/14/2025 2:45 PM EDT Office Visit [facility] [address] [place] [address] Alexandra Zabala MD [address] [place] [address] documented as of this encounter Visit Diagnoses Not on filedocumented in this encounter Discontinued Medications Medication Sig Discontinue Reason Start Date End Da te methotrexate 2.5 mg Oral Tablet Take 8 Tablets by mouth once a week. Cancelled by 02/05/2023 11/26/2024 documented as of this encounter Care Teams Customs Entry Clerk Relationship Specialty Start Date End Date Alexandra Zabala MD [address] [place] [address] Internal Medicine-Rheumatology 02/01/23 documented as of this encounter
--- OUTSIDE RECORDS SUMMARY | 2025-03-03 07:13 | XMS_ITS | Clinical Summary ---
Author Organization [facility] Address [address] [place] [address] Phone Care Team Providers Care Shrink Pit Operator Name Role Phone Alexandra Zabala MD Unavailable Allergies Active Allergy Reactions Criticality Noted Date Comments Cephalexin Nausea Only 02/05/2023 Clindamycin Nausea Only 02/05/2023 s Levofloxacin Rash 02/05/2023 Sulfa (Sulfonamide Antibiotics) Other (See Comments) 02/05/2023 stomach pain Medications albuterol (PROVENTIL HFA;VENTOLIN HFA) 90 mcg/actuation Inhl HFA Aerosol Inhaler INHALE 2 PUFFS BY MOUTH 4 TIMES DAILY NEEDED 3 Active ADDERALL XR 20 mg Oral Capsule, Sust. Release 24 hr TAKE 2 CAPSULES BY MOUTH ONCE DAILY IN THE MORNING 3 Active LEVOthyroxine (SYNTHROID) 50 mcg Oral Tablet Take 50 mcg by mouth daily. 3 Active lisinopriL (PRINIVIL;ZESTRI L) 20 mg Oral Tablet tablet Take 20 mg by mouth 2 times daily. 3 Active metoprolol succinate (TOPROL-XL) 50 mg Oral Tablet Sustained Release 24 hr Take 50 mg by mouth daily. 3 Active rosuvastatin (CRESTOR) 20 mg Oral Tablet TAKE 1 TABLET BY MOUTH ONCE DAILY AT BEDTIME FOR 30 DAYS 3 Active venlafaxine (EFFEXOR-XR) 150 mg Oral Capsule, Sust. Release 24 hr Take 150 mg by mouth daily. 3 Active dextroamphetamin e-amphetamine (ADDERALL) 10 mg Oral Tablet TAKE 1 TABLET BY MOUTH ONCE DAILY WITH LUNCH 3 Active cyanocobalamin 100 mcg Oral Tablet Take by mouth daily. Active ergocalciferol (VITAMIN D) 1,250 mcg (50,000 unit) Oral Capsule Take by mouth once a week. Active inFLIXimab (REMICADE) 100 mg IV Recon Soln Inject into the vein. every 7 wks Active cholecalciferol, vitamin D3, (VITAMIN D3) 25 mcg (1,000 unit) Oral Tablet Take 1 Tablet by mouth daily. Active fenofibrate (TRICOR) 145 mg Oral Tablet Take 145 mg by mouth daily. 4 Active clobetasoL (TEMOVATE) 0.05 % Top Ointment Apply topically 2 times daily as needed for Irritation. 30 g 2 4 Active Additional Information Patient not taking.Reported on 11/25/2024 Coenzyme Q10 100 mg Oral Capsule Take by mouth. Active lisinopriL (PRINIVIL;ZESTRI L) 40 mg Oral Tablet 5 Active albuterol (PROVENTIL HFA;VENTOLIN HFA) 90 mcg/actuation Inhl HFA Aerosol InhalerIndicatio ns:Polyarticular psoriatic arthritis (HCC) Inhale 2 Puffs into the lungs every 4 hours as needed for Wheezing. 6.7 g 2 5 Active leflunomide (ARAVA) 10 mg Oral TabletIndication s:Encounter for long-term (current) use of medications Take 1 Tablet by mouth daily. 30 Tablet 2 5 Active pregabalin (LYRICA) 25 mg Oral Capsule Take 2 Capsules by mouth nightly. 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 After which we discussed OK to restart the remicade 2 weeks post extraction if no infection ; note sent to biologic will plan to start 5mg /kg q 7 weeks instead of prior dose of 6mg/kg q 7 weeks w pre-treatment due to interruption and prior reactions -responsive to remicade infusions. 6mg/kg Q 7 weeks; Last infused; 09/26/23; -clobetasol topical PRN use -she requested a depot-medrol; discussed risk of [...] abx, no improvement, referred to ENT visit 10/20/22, [place] dx with fungal laryngitis resolved with PO and topical antifungals # Hypertension: --improved # Right shoulder pain: -likely PsA flare; off all meds; responsive to R shoulder injection # Renal Insufficiency: -improved; advised to avoid all NSAIDs # Tick Bite: -embedded tick (08/26/24) no rash, fever; endemic region; met criteria for prophylaxis; prescribed 1 time dose of doxycycline 200mg, # Raynauds: -toes [...] and teratogenicity effects of which may be present for as long as 2 years from discontinuation of drug -Lyrica: We discussed issues related to long-term controlled substance use. We had the patient sign a controlled substance consent agreement, We discussed the risks, which include (but are not limited to) a baseline risk of addiction. We will monitor for problems of dependence or addiction as best as we can. We discussed the importance of compliance with office policies. This includes (but is not limited to) taking the medication only as prescribed, [...] psychosis, insominia, avascular necrosis and weight gain Drug therapy 10/02/2022 Encounters Date Type Department Care Team Description 02/16/2025 Telephone [facility] [address] [place] [address] Elvira Brewer, Clerical Staff Biologic Restart (Remicade Restart) 02/13/2025 Results Follow-Up [facility] [address] [place] [address] Alexandra Zabala MD CBC WITH AUTO DIFF-QUEST, COMPREHENSIVE METABOLIC PANEL-QUEST, SEDIMENTATION RATE AUTOMATED-QUEST, VITAMIN D 25 HYDROXY-QUEST 02/12/2025 2:45 PM EDT Office Visit [facility] [address] [place] [address] Alexandra Zabala MD Polyarticular psoriatic arthritis (HCC) (Primary Dx); Encounter for long-term (current) use of medications; Vitamin D deficiency from Last 3 Months Medical History Medical History Date Comments Hypertension Depression mild no SI Family History Medical History Relation Name Comments Psoriasis Maternal Grandfather Relation Name Status Comments Maternal Grandfather Social History Tobacco Use Types Packs/Day Years Used Date Smoking Tobacco: Every Day Cigarettes Smokeless Tobacco: Never Tobacco Cessation:Ready to Q uit: Not Asked; Counseling Given: Not Answered Alcohol Use Standard Drinks/Week Comments Yes 0 (1 standard drink = 0.6 oz pur e alcohol) social Comments No Sex and Gender Information Value Date Recorded Sex Assigned at Not on file Legal Sex Female 11:26 AM EST Gender Identity Not on file Sexual Orientation Not on file Obstetrics History Last Filed Vital Signs Vital Sign Reading Time Taken Comments Blood Pressure 116/74 02/12/2025 2:50 PM EDT Pulse 84 09/26/2023 4:08 PM EDT Temperature 36.3 C (97.3 F) 02/12/2025 2:50 PM EDT Respiratory Rate 18 09/26/2023 4:08 PM EDT Oxygen Saturation 95% 09/26/2023 4:08 PM EDT Inhaled Oxygen Concentration - - Weight 78 kg (172 lb) 02/12/2025 2:50 PM EDT Height 172.7 cm (5' 8 ) 02/12/2025 2:50 PM EDT Body Mass Index 26.15 02/12/2025 2:50 PM EDT Plan of Treatment Upcoming Encounters Date Type Department Care Team (Late st Contact Info) Description 05/14/2025 2:45 PM EDT Office Visit [facility] [address] [place] [address] Alexandra Zabala MD [address] [place] [address] Health Maintenance Due Date Last Done Comments Annual Wellness Exam 1974 Hepatitis B Vaccine (1 of 3 - 19+ 3-dose series) 1990 Pneumococcal Vaccine 50+ (1 of 2 - PCV) 1990 Zoster (1 of 2) 1990 Cervical Cancer Screening 1992 Pap Smear 1992 HPV/Pap Cotest 2001 Breast Cancer Screening 2011 Cologuard 2016 Colon Cancer Screening 2016 Colonoscopy 2016 FIT 2016 Sigmoidoscopy 2016 Virtual Colonography 2016 COVID-19 Vaccine (2023-2 5 season) 2024 07/20/2021, 09/10/2020, 08/10/2020 Influenza Vaccine (#1) 2025 , 05/03/2016 DTaP/TDaP/Td (3 - Td or Tdap) 04/07/2030, 05/03/2016, 09/18/1996 Meningococcal B Vaccine Aged Out No l onger eligible based on patient's age to complete this topic Procedures Procedure Name Priority Date/Time Associated Diagnosis Comments C REACTIVE PROTEIN-QUEST Routine 02/12/2025 3:43 PM EDT Encounter for long-term (current) use of medications VITAMIN D 25 HYDROXY-QUEST Routine 02/12/2025 3:43 [...] Encounter for long-term (current) use of medications from Last 3 Months Results * VITAMIN D 25 HYDROXY-QUEST (02/12/2025 3:43 PM EDT) VIT D 25 OH 49 30 - 100 ng/mL DoutíssimaSae arteaga Comment: Vitamin D Status 25-OH Vitamin D: Deficiency: <20 ng/mL Insufficiency: 20 - 29 ng/mL Optimal: > or = 30 ng/mL For 25-OH Vitamin D testing on patients on D2-supplementation and patients for whom quantitation of D2 and D3 fractions is required, the QuestAssureD(TM) 25-OH VIT D, (D2,D3), LC/MS/MS is recommended: order code 74111 (patients >2yrs). See Note 1 Note 1 For additional information, please refer to http://education.Dextr.Proteopure/faq/ROF548 (This link is being provided for informational/ educational purposes only.) 02/12/2025 3:43 PM EDT 02/12/2025 3:47 PM EDT us Alexandra Zabala MD [facility] ORDERABLES Final Result [facility] [address] [place] [address] * SEDIMENTATION RATE AUTOMATED-QUEST (02/12/2025 3:43 PM EDT) Sed Rate 2 < OR = 30 mm/h [facility] 02/12/2025 3:43 PM EDT 02/12/2025 3:47 PM EDT Alexandra Zabala MD [facility]MATOLOGY ORDERABLES Josiane l Result [facility] [address] [place] [address] * C REACTIVE PROTEIN-QUEST (02/12/2025 3:43 PM EDT) CRP <3.0 <8.0 mg/L [facility] 02/12/2025 3:43 PM EDT 02/12/2025 3:47 PM EDT Alexandra Zabala MD [facility]MISTRY ORDERABLES Final Result Performing Organization Address City/[facility]/ZIP Co de Phone Number [facility] [address] [place] [address] * COMPREHENSIVE METABOLIC PANEL-QUEST (02/12/2025 3:43 PM EDT) Glucose 72 65 - 99 mg/dL [facility] [...] Alexandra Zabala MD [facility]MI[facility] ORDERABLES Final Result [facility] [address] [place] [address] * (ABNORMAL) CBC WITH AUTO DIFF-QUEST (02/12/2025 3:43 PM EDT) WBC 7.9 3.8 - 10.8 Thousand/u L [...] 3:47 PM EDT us Alexandra Zabala MD [facility]MAT[facility] ORDERABLES Josiane thompson Result [facility] [address] [place] [address] from Last 3 Months Insurance PPO PABLO PPO Care Teams Shrink Pit Operator Relationship Specialty [place] [address] [place] [phone] Internal Medicine-Rheumatology 02/01/23
--- OUTSIDE RECORDS SUMMARY | 2025-03-03 07:13 | XMS_ITS | Encounter Summary ---
Author Organization [facility] Address [address] [place] [address] Care Team Providers Care Kindergartner Name Role Phone Alexandra Zabala MD Unavailable Encounter Details Date Type Department Care Team (Latest Contact Info) Description 02/13/2025 Results Follow-Up [facility] [address] [place] [address] Alexandra Zabala MD [address] [place] [address] CBC WITH AUTO DIFF-QUEST, COMPREHENSIVE [...] on file documented as of this encounter Plan of Treatment Upcoming Encounters Date Type Department Care Team (Late st Contact Info) Description 05/14/2025 2:45 PM EDT [facility] [address] [place] [address] Alexandra Zabala MD [address] [place] [address] documented as of this encounter Visit Diagnoses Not on filedocumented in this encounter Care Teams Kindergartner Relationship Specialty Start Date End Date Alexandra Zabala MD [address] [place] [address] Internal Medicine-Rheumatology 02/01/23 documented as of this encounter
--- OUTSIDE RECORDS SUMMARY | 2025-03-03 07:13 | XMS_ITS | Clinical Summary ---
Author Organization Healthcare Address [address] [place] [address] Care Team Providers Care Group Home Counselor Name Role Phone Pcp, No Primary Care Provider Unavailabl e Social History Tobacco Use Types Packs/Day Years Used Date Smoking Tobacco: Never Assessed Comments Unknown Sex and Gender Information Value Date Recorded Sex Assigned at Not on file Legal Sex Female 6:55 PM EDT Gender Identity Not on file Sexual Orientation Not on file Plan of Treatment Health Maintenance Due Date Last Done Comments [facility]-Depression Screening 1971 [facility]-Infant/Child/Adol SDOH Screenings 1971 [facility]- SDOH Screenings 1989 [facility]-Adult SDOH Screenings 1989 [facility]-Hepatitis B Vaccines (1 of 3 - 19+ 3-dose series) 1990 [facility]-Pap Smear 1992 [facility]-Cervical Cancer Screening 2001 [facility]-HPV/Cotest 2001 CT Colonography 2016 Colonoscopy 2016 FIT-DNA 2016 FIT 2016 FOBT 2016 Sigmoidoscopy 2016 [facility]-Colorectal Cancer Screening 2016 [facility]-Pneumococcal Vaccine: 50 + Years (1 of 1 - PCV) 2021 [facility]-Zoster Vaccines (1 of 2) 2021 [id number] Vaccine ( - season) 2024 07/20/2021, 09/10/2020, 08/10/2020 [facility]-Influenza Vaccine (#1) 03/16/202503/15, 05/03/2016 [facility]-DTaP,Tdap,and Td Vaccine s (3 - Td or Tdap) 04/07/2030 04/07/2020, 05/03/2016, 09/18/1996 HPV Vaccines Aged Out No longer eligi ble based on patient's age to complete this topic [facility]-HIB Vaccines Aged Out No longer e ligible based on patient's age to complete this topic [facility]-Hepatitis A Vaccines Aged Out No longer eligible based on patient's age to complete this topic [facility]-IPV Vaccines Aged Out No longer e ligible based on patient's age to complete this topic [facility]-Rotavirus Vaccines Aged Out No lo nger eligible based on patient's age to complete this topic Insurance JED Care Teams Group Home Counselor Relationship Specialty Start Date [place] [address] PCP - General Family Medicine 11/10/22
--- OUTSIDE RECORDS SUMMARY | 2025-03-03 07:13 | XMS_ITS | Patient Health Record ---
Author Organization [facility] Address [address] [facility] [address] [place] [id number] Care Team Providers Care Imagery Analyst Name Role Phone Krystal Godwin Primary Care Provider [phone] Hiram Alberto Unavailable [phone] Allergies Allergen (clinical drug ingredient) Drug/Non Drug Allergy documented on EMR Reaction Allergy Type Onset Date Status amoxicillin Amoxicillin Unknown Drug Allergy Act paris cephalexin Cephalexin Unknown Drug Allergy Activ e Levaquin Unknown Drug Allergy Active Maxzide-25 rash Drug Allergy Active golimumab Simponi Aria Unknown Drug Allergy Acti ve Results Component Value Reference Range Notes P-Surgical Pathology Reviewed date:02/13/2025 10:21:29 AM Interpretation:granuloma annulare, at or near peripheral margin Performing Lab: Notes/Report: Surgical Pathology View Report Patient Name: MARYSE ZHENG Age-Sex-: 54y F 1970 Procedure Date: 01/02/2025 Accession Date: 01/03/2025 Pt Acct#: Report Date: 01/07/2025 Location: OFFICE Physician(s): Zac Godwin MD P A T H O L O G Y R E P O R T DIAGNOSIS: 1. Skin, left upper forearm, excision: Granuloma annulare, margins free. 2. Skin, left elbow, shave excision: Granuloma annulare, at or near a peripheral margin Amanda Germain MD electronically signed 01/07/2025 10:03 AM Gross Description: 1. Received in formalin labeled Maryse Zheng, excision of suspicious lesion upper forearm the specimen consists of a pale grayish-guillen skin excision measuring 1.1 x 0.6 cm and excised to a depth of 0.1 cm. On the skin surface is a pale bro area measuring approximately 0.5 x 0.5 cm and abuts the nearest margins. The margin is inked blue. The specimen is sectioned with the tips being submitted in 1A, 08/16. The remaining 2 sections are submitted in 1B, 08/16. 2. Received in formalin labeled Maryse Zheng, shave excision of suspicious lesion the specimen consists of a pale grayish-guillen skin shave measuring 1.5 x 0.8 x 0.1 cm. The skin surface is slightly wrinkled in texture. On the skin surface is an area that is a paler guillen color measuring 0.6 x 0.5 cm and abuts the nearest margins. The margin is inked blue. The specimen is sectioned into 4 pieces and submitted in 2A, 10/14. (GB8,csb) Grossing services provided by [facility], [facility], d/b/a [address] [place], [address] Sotero Mosley MD, Vocational Placement Specialist. Microscopic Description: 1. There is palisaded granulomatous inflammation present in the dermis with histiocytes and giant cells surrounding fibrillary mucinous material. Perivascular lymphohistiocytic inflammation is also seen. 2. There is palisaded granulomatous inflammation present in the dermis with histiocytes and giant cells surrounding fibrillary mucinous material. Perivascular lymphohistiocytic inflammation is also seen. Clinical History: Neoplasm of uncertain behavior, unspecified (D48.9); suspicious skin lesions of the left elbow Specimen List: 1. Left upper forearm 2. Left elbow Unless specified otherwise above, the quality of the H and E and any other stains performed is satisfactory, and any internal or external positive and negative controls react appropriately. End of Report Technical services provided by [facility], [facility], d/b/a [address] [place] [address] Sotero Mosley MD, Vocational Placement Specialist. Case reviewed and diagnosis rendered at [facility], [facility], d/b/a [address] , [place] [address] Sotero Mosley MD, Vocational Placement Specialist. CONFIDENTIAL Reason For Referral No Information Medications Medication SIG (Take, Route, Frequency, Duration) Notes Start Date End Date Status Levothyroxine Sodium 50 MCG Take 1 tablet by mouth once daily; Duration: 90 Active Metoprolol Succinate ER 50 MG Take 1 tablet by mouth once daily; Duration: 90 days Active Venlafaxine HCl ER 150 MG Take 1 capsule by mouth once daily; Duration: 90 Active Adderall 10 MG 1 tablet Orally once a day at lunch; Duration: 30 days 02/26/2025 Active Adderall XR 20 MG 2 tab(s) orally once a day (in the morning); Duration: 30 days 02/26/2025 Active Rosuvastatin Calcium 20 MG 1 tablet Orally Once a day; Duration: 90 days Active Vitamin D3 1.25 MG (97124 UT) 1 cap(s) orally once a month; Duration: 30 day(s) 02/01/2018 Active Vitamin B-12 1000 MCG 1 tab(s) orally on ce a day; Duration: 30 day(s) 06/07/2015 Active Remicade 100 MG as directed intravenously every 7 weeks Not-Taking Co Q 10 100 MG as directed Orally Active Leflunomide 10 MG 1 tablet Orally Once a day in the am Not-Taking Lisinopril 40 MG 1 tablet Orally Once a day; Duration: 90 days 02/10/2025 Active Fenofibrate 145 MG 1 tablet Orally Once a day; Duration: 90 days Active Immunizations Vaccine Route Administration Date Status Comme nts xFlu shot- 6months-36 months of [id number]-NUCF-trivalent Unknown 05/03/2016 Administered Tetanus Tdap-Adacel (over 7yrs) Unknown 05/03/2016 Administered Tetanus Tdap-Adacel (over 7yrs) IM Intramuscular 04/07/2020 Administered Fluzone PF Quad (6-35 months) Unknown 03/15/2020 Administered DT, 7 YEARS OR OLDER Unknown 09/18/1996 Administered COVID 19 Moderna Unknown 08/09/2020 Administered COVID 19 Moderna Unknown 09/10/2020 Administered COVID 19 Moderna Unknown 07/20/2021 Administered Problems Problem Type SNOMED Code ICD Code Onset Dates Problem Status W/U Status Risk Notes Problem Essential hypertension (83528749) Essential (primary) hypertension (I10) Active confirmed Problem Vitamin D deficiency (34534728) Vitamin D deficiency (E55.9) Active confirmed Problem Vitamin B12 deficiency (120366581) Vitamin B12 deficiency (E53.8) Active confirmed Problem Essential hypertension (71343360) Essential hypertension (I10) Active confirmed Problem Urinary incontinence (733969733) Urinary incontinence (R32) Active confirmed Problem Goiter (2740681) Enlarged thyroi d (E04.9) Active confirmed Problem Mixed anxiety and depressive disorder (419745076) Depression with anxiety (F41.8) Active confirmed Problem Psoriasis (7322590) Psoriasis (L40.9) Active confirmed Problem Mixed hyperlipidemia (863115128) Mixed hyperlipidemia (E78.2) Active confirmed Problem Simple chronic bronchitis (10449719) Simple chronic bronchitis (J41.0) Active confirmed Problem Fourth degree hemorrhoids (356290001) Fourth degree hemorrhoids (K64.3) Active confirmed Problem Acquired hypothyroidism (431806100) Acquired hypothyroidism (E03.9) Active confirmed Problem Attention deficit disorder (33268156) Attention deficit disorder (F90.0) Active confirmed Problem Attention deficit hyperactivity disorder (295843222) Attention deficit hyperactivity disorder (ADHD), combined type (F90.2) Active confirmed Vital Signs Heart Rate 78 /min 01/22/2025 Blood pressure diastolic 90 mm Hg 01/22/2025 Height 66 in 01/22/2025 Blood pressure systolic 140 mm Hg 01/22/2025 Weight 179.0 lbs 01/22/2025 BMI 28.89 kg/m2 01/22/2025 Encounters Encounter Location Date Provider Diagnosis [facility] [facility] [address], [place] [id number] 03/27/2024 Krystal Godwin Attention deficit disorder F90.0 ; Essential hypertension I10 and Mixed hyperlipidemia E78.2 [facility] [facility] [address] [place], [place] [id number] 01/02/2025 Krystal Godwin Neoplasm of uncertai n behavior D48.9 [facility] [facility] [facility] [address] [place], [place] [id number] 01/12/2025 Krystal Godwin [facility] [facility] [address] [place], [place] [id number] 01/22/2025 Krystal Godwin Attention deficit disorder F90.0 ; 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 and BMI 28.0-28.9,adult Z68.28 [facility] [address] [place], [place] [id number] 08/14/2024 J Sukhjinder Godwin Attention deficit disorder F90.0 and Essential hypertension I10 [facility] [address] [place], [place] [id number] 11/10/2024 J Sukhjinder Godwin Attention deficit disorder F90.0 ; Essential hypertension I10 ; Psoriasis L40.9 and BMI 28.0-28.9,adult Z68.28 [facility] [address] [place], [place] [id number] 03/25/2024 Krystal Godwin Long-term current e of stimulant Z79.899 [facility] [address] [place], [place] [id number] 05/02/2024 J Sukhjinder Tato [facility] [address] [place], [place] [id number] 05/05/2024 Alberto Gandhi Attention deficit disorder F90.0 [facility] [address] [place], [place] [id number] 06/04/2024 J Sukhjinder Tato Attention deficit disorder F90.0 [facility] [address] [place], [place] [id number] 07/10/2024 J Sukhjinder Tato Attention deficit disorder F90.0 [facility] [address] [place], [place] [id number] 08/07/2024 J Sukhjinder Tato Attention deficit disorder F90.0 [facility] [address] [place], [place] [id number] 09/11/2024 J Sukhjinder Tato Attention deficit disorder F90.0 [facility] [address] [place], [place] [id number] 09/15/2024 J Sukhjinder Tato [facility] [address] [place], [place] [id number] 10/13/2024 J Sukhjinder Tato Attention deficit disorder F90.0 [facility] [address] [place], [place] [id number] 11/17/2024 Krystal Godwin [facility] [address] [place] [id number] 11/27/2024 Krystal Godwin [facility] [address] [place] [id number] 12/20/2024 [place] Attention deficit disorder F90.0 [facility] [address] [place] [id number] 02/10/2025 Krystal Godwin [facility] [address] [place], [place] [id number] 02/10/2025 Krystal Godwin Screening for breast cancer Z12.39 ; Screening for lung cancer Z12.2 and History of tobacco use Z87.891 [facility] [address] [place], [place] [id number] 02/13/2025 Krystal Godwin [facility] [address] [place], [place] [id number] 02/24/2025 Krystal Godwin Attention deficit disorder F90.0 Assessments Encounter Date Diagnosis (ICD Code) Assessment Notes Treatment Notes Treatment Clinical Notes Section Notes 11/10/2024 Attention deficit disorder (ICD-10 - F90.0) 12/20/2024 Attention deficit disorder (ICD-10 - F90.0) 01/02/2025 Neoplasm of uncertain behavior (ICD-10 - D48.9) 01/22/2025 Granuloma annulare (ICD-10 - L92.0) 01/22/2025 Attention deficit disorder (ICD-10 - F90.0) 02/10/2025 Screening for breast cancer (ICD-10 - Z12.39) 02/10/2025 Screening for lung cancer (ICD-10 - Z12.2) 02/24/2025 Attention deficit disorder (ICD-10 - F90.0) 03/25/2024 Long-term current use of stimulant (ICD-10 - Z79.899) 03/27/2024 Essential hypertension (ICD-10 - I10) 03/27/2024 Attention deficit disorder (ICD-10 - F90.0) 05/05/2024 Attention deficit disorder (ICD-10 - F90.0) 06/04/2024 Attention deficit disorder (ICD-10 - F90.0) 07/10/2024 Attention deficit disorder (ICD-10 - F90.0) 08/07/2024 Attention deficit disorder (ICD-10 - F90.0) 08/14/2024 Essential hypertension (ICD-10 - I10) 08/14/2024 Attention deficit disorder (ICD-10 - F90.0) continue current therapy 09/11/2024 Attention deficit disorder (ICD-10 - F90.0) 10/13/2024 Attention deficit disorder (ICD-10 - F90.0) 11/10/2024 Essential hypertension (ICD-10 - I10) 11/10/2024 Psoriasis (ICD-10 - L40.9) 03/27/2024 Mixed hyperlipidemia (ICD-10 - E78.2) Needs fasting lipids and CMP prior to next visit. note addition of Fenofibrate 02/10/2025 History of tobacco use (ICD-10 - Z87.891) 01/22/2025 BMI 28.0-28.9,adult (ICD-10 - Z68.28) 11/10/2024 BMI 28.0-28.9,adult (ICD-10 - Z68.28) Plan Of Treatment Pending Test Test Name Order Date Complete Metabolic Profile 09/24/2023 Mammogram 02/10/2025 lipid profile 09/24/2023 CT Scan : Chest, low dose 02/10/2025 Insurance Providers Payer Name Payer Address Payer Phone Subscriber Number Group Number Insured Name Patient Relationship to Insured Coverage Start Date Coverage End Date [facility] [address] [place] [address] [id number] MARYSE ZHENG Self - patient is the insured Medications Administered Medication Instructions Date of Administration Dosage Notes B-12 06/21/2015 1 mL Rocephin 500 mg 02/12/2019 500 mg Rocephin 500 mg 02/13/2019 500 mg Medical (General) History Medical History History ICD Code Irritable Bowel Syndrome Psoriasis Psoriatic arthritis ADHD Fungal esophagitis Surgical History Surgery Date(Month/Year) R knee x5 surgery 1985 to 2010 C section [facility] 1997 hysterectomy, abdominal 1997 hysteroscopy, lab and d&c Dr. Cannon 199 7 ganglion cyst on R hand removed 2007 breast reduction 1993 tooth pulled 04/08/2013 Hospitalization History Reason Date(Month/Year) double pneumonia 1998 & 1999 [facility] 03/2020 [facility] Colitis 08/22-07/01
--- NOTE | 2025-03-03 07:14 | CT_ITS ---
FINAL REPORT TECHNIQUE: Axial CT images of the chest were obtained without contrast. Low-dose protocol was utilized. This study was performed with techniques to keep radiation doses as low as reasonably achievable (ALARA). Individualized dose reduction techniques using automated exposure control or adjustment of mA and/or kV according to the patient's size were employed. CLINICAL HISTORY: .current smoker 1ppd x37 years COMPARISON: None FINDINGS: CT CHEST WITHOUT, LOW DOSE SCREENING CT Di Vol: 2.90 mGy DLP: 93.51 mGy*cm There is no mediastinal mass or adenopathy. The heart size is normal. There is no pleural or pericardial effusion. The lung windows show no discrete suspicious mass or nodule. Limited images of the upper abdomen demonstrate no acute findings. IMPRESSION: No discrete pulmonary nodules identified. LR Category 1: 12 month follow-up low-dose chest CT is recommended per Fleischner criteria. Reviewed, Interpreted and Dictated by Fransisco Hernandez MD Transcribed by Amanda Barnett Authenticated and [facility]
--- NOTE | 2025-03-03 07:14 | MM_ITS ---
PROCEDURE INFORMATION: Exam: MG Bilateral Screening 3D Mammography Exam date and time: 03/03/2025 8:14 AM Age: 54 years old Clinical indication: Screening examination. Her paternal grandmother had breast cancer. TECHNIQUE: Imaging protocol: Bilateral Screening tomosynthesis and 2D mammography including computer-aided detection (CAD) when performed. COMPARISON: 1. MG DMSB DIGITAL MAMM-SCREEN BILATERAL 01/24/2012 1:15 PM 2. MG DIGMAMMS MAMMOGRAM SCREEN-[employer]VAL [employer] N/C 10/14/2008 2:15 PM 3. MG DIGMAMMS MAMMOGRAM SCREEN-[employer]VAL [employer] N/C 10/18/2006 1:31 PM FINDINGS: MAMMOGRAPHY: Breast composition: The breasts are almost entirely fatty. Mass: None. Architectural distortion: Stable diffuse bilateral architectural distortion with history of reduction mammoplasty. Calcifications: No suspicious calcifications. Asymmetric density: None. Skin thickening: None. Axillary adenopathy: None. IMPRESSION: No mammographic evidence of malignancy. Annual screening is recommended unless otherwise clinically indicated. ASSESSMENT: BI-RADS Category 2: Benign.
== END 2025-03-03 23:59 | disposition home or self-care (01) ==
LOC: RAD 07:11
PROVIDERS: PCP Family Medicine; Visit Provider Family Medicine
DX: Z12.31 Encounter for screening mammogram for malignant neoplasm of breast (principal); R92.313 Mammographic fatty tissue density, bilateral breasts; Z98.890 Other specified postprocedural states; Z80.3 Family history of malignant neoplasm of breast; Z12.2 Encounter for screening for malignant neoplasm of respiratory organs; Z87.891 Personal history of nicotine dependence
CPT/HCPCS: 71271; 77063; 77067